=== PATIENT | female | born 1945 | race Caucasian/White ===

== ENCOUNTER → 2016-09-20 | Outpatient (CLI) | payer OTHER ==
[~2016-09-20] MED LIST: ALBU8I INH; ASPI1TAB91 PO; ATOR40TA16 PO; ATOR40TA49 PO; CARV12.5 PO; CARV6.25 PO; DUONI NEB; ECOT81TA2 PO; FLUT1SPR5 EACH NARE; FURO1TAB93 PO; HYDR-3516 PO; IPRASOL NEB; LACT PO; LEVA500T PO; LISI10 PO; LORTA5 PO; MESA1TAB2 PO; METR-1 PO; NEBUMIS6 INH; PRED20 PO; SPIR25 PO; SYMB160A INH; VENTAER INH; Z.0.OXYGENDME FM
[2016-09-20 14:55] LABS: BLOOD GAS BASE EXCESS -1.2 mmol/L (-2-2); BLOOD GAS CARBOXYHEMOGLOBIN 1.2 % (0-4); BLOOD GAS HCO3 23 mmol/L (22-26); BLOOD GAS METHEMOGLOBIN 1.2 % (0-2); BLOOD GAS O2 HGB SATURATION 95 % (90-100); BLOOD GAS OXYGEN CONTENT 17.6 Vol % (12.0-20.0); BLOOD GAS PCO2 38 mmHg (38-42); BLOOD GAS PO2 99 mmHg (61-120); BLOOD GAS TOTAL HGB 13.1 G/DL (12.0-16.0); TEMP CORR TO 98.6
[2016-09-20 14:56] LABS: CRITICAL VALUE NO; DRAW SITE RT RADIAL; FIO2 21 %; NUMBER OF ARTERIAL PUNCTURES 1; STAT NO; ULNAR PULSE PRESENT
--- NOTE | 2016-09-24 11:38 | RSPPFT ---
DATE OF PROCEDURE: 09/20/16 COMMENTS: VOLUMES DYNAMIC: FVC and FEV1 severely reduced. STATIC: Unable to perform. FLOWS: FEV1% moderately reduced. FEF 25-75 severely reduced. DIFFUSION: Unable to perform. FLOW VOLUME LOOP: Pattern of variable intrathoracic airways obstruction. IMPRESSION: Very severe obstructive ventilatory defect with patient unable to perform lung volumes or diffusion. No significant improvement in FEV1 post-bronchodilator.
== END ==
LOC: HRSP 13:41
PROVIDERS: ATTEND Internal Medicine
DX: J44.9 Chronic obstructive pulmonary disease, unspecified (principal)
CPT/HCPCS: 36600; 82805; 94060; 94620

== ENCOUNTER 2016-10-03 15:31 | Inpatient (IN) | payer OTHER, MEDICARE ==
[~2016-10-03] VITALS: Ht 157.5 cm; Wt 65.6 kg
[~2016-10-03 15:31] MED LIST changes: -ASPI1TAB91 PO; -ATOR40TA16 PO; -CARV12.5 PO; -FLUT1SPR5 EACH NARE; -HYDR-3516 PO; -IPRASOL NEB; -LACT PO; -MESA1TAB2 PO; -METR-1 PO; -VENTAER INH
[2016-10-03 15:37] VITALS: BP 192/82; PULSE 83; RESP 24; TEMP 98.3; O2SAT 98
--- NOTE | 2016-10-03 15:51 | PD ---
Physical Exam Time Seen by Provider: 15:48 Narrative 71yo F c/o vomiting last night and today. Gastrography one week ago and mentioned intestinal/ischemic angina. +sweating; unknown fever. Denies diarrhea. Was having abd pain and rated 8/10 at time of pain; no current pain. Patient seen in triage. VS reviewed. Awaiting bed placement. Data Data Last Documented VS Vital Signs Date Time Temp Pulse Resp B/P Pulse Ox O2 Delivery O2 Flow Rate FiO2 10/03/16 15:37 98.3 83 24 192/82 98 Room Air MDM Supervised Visit with YESI: Hodan Gililland Oct 03, 2016 15:51
[2016-10-03 16:58] LABS: BASOPHIL % 0.4 % (0.0-2.0); EOSINOPHIL % 0.2 % (0.0-4.0); HEMO FLAGS DIFF FINAL; LYMPHOCYTE # 1.1 TH/MM3 (1.0-4.8); MEAN CELL VOLUME 81.2 FL (80.0-100.0); MEAN CORPUSCULAR HEMOGLOBIN 27.2 PG (27.0-34.0); MEAN CORPUSCULAR HGB CONC 33.5 % (32.0-36.0); MONO % 8.5 % (0.0-8.0); NEUT % 79.9 % (16.0-70.0); PLATELET COUNT 370 TH/MM3 (150-450); RED CELL DISTRIBUTION WIDTH 13.8 % (11.6-17.2)
[2016-10-03 17:13] LABS: ALT (GPT) 16 U/L (10-53)
[2016-10-03 17:15] LABS: ALKALINE PHOSPHATASE 75 U/L (45-117); TOTAL BILIRUBIN ADULT 0.3 MG/DL (0.2-1.0)
[2016-10-03 17:22] VITALS: O2SAT 96
[2016-10-03] MEDS ORDERED: ONDANSETRON HCL 4 MG/2 ML VIAL IV PUSH ONE (17:30)
[2016-10-03] MEDS ORDERED: SODIUM CHLOR 0.9% 1000 ML INJ 1,000 ML IV ONE (17:30)
[2016-10-03 17:35] LABS: BACTERIA, URINE MANY /hpf; BLOOD, URINE MOD (NEG); COMMENT (UR) CULTURE INDICATED; CULTURE IF INDICATED CULTURE INDICATED; GLUCOSE,URINE NEG (NEG); GRANULAR CAST, URINE 1 /lpf; KETONE, URINE 40 mg/dL (NEG); MUCUS URINE FEW /lpf (OCC); PH, URINE 5.5 (5.0-8.5); SQUAMOUS EPITHELIAL CELL URINE 5 /hpf (0-5); URINE COLOR YELLOW (YELLW/STRAW)
[2016-10-03 17:37] LABS: NITRITE,URINE POS (NEG)
--- NOTE | 2016-10-03 17:44 | PD ---
HPI Chief Complaint: GI Complaint Time Seen by Provider: 17:15 Travel History International Travel<30 days: No Contact w/Intl Traveler<30days: No Traveled to known affect area: No History of Present Illness HPI Patient is a 71-year-old female presents emergency Department with nausea and vomiting which has progressed over the past few days, patient states she's been having emesis full of green bile. She endorses generalized abdominal cramping which is gradually worsening. Patient is a coming by family who states that they wanted to stop and try some food on the way here and the patient was not able to tolerate that either. She is a recent history of having a colonography performed on the ninth of this month. Patient states she was able tolerate food pass gas after the procedure. She is followed by Dr. Holbrook. She does decline any diarrhea nor blood in the stool. PFSH Past Medical History Arthritis: Yes Depression: Yes Cancer: No Cardiovascular Problems: No COPD: Yes Diminished Hearing: No Endocrine: No Genitourinary: No Hypertension: Yes Immune Disorder: No Musculoskeletal: Yes Neurologic: No Psychiatric: Yes Reproductive: No Respiratory: No Immunizations Current: Yes Influenza Vaccination: No ?: Not Menopausal: Yes Past Surgical History Cholecystectomy: Yes Gynecologic Surgery: Yes (hysterectomy) Hysterectomy: Yes Oral Surgery: Yes (tonsilectomy) Tonsillectomy: Yes Other Surgery: Yes Social History Alcohol Use: No Tobacco Use: No (QUIT 2014) Substance Use: No Allergies-Medications (Allergen,Severity, Reaction): Coded Allergies: No Known Allergies (Unverified , 10/03/16) Reported Meds & Prescriptions Reported Meds & Active Scripts Active Reported Flonase Nasal [place] (Fluticasone Nasal [place]) 50 Mcg/Act [place] 2 Spr EACH NARE DAILY PRN Atorvastatin (Atorvastatin Calcium) 40 Mg Tab 40 Mg PO HS Aspirin Adult Low Strength (Aspirin) 81 Mg Tabdr 81 Mg PO DAILY Coreg (Carvedilol) 12.5 Mg Tab 12.5 Mg PO DAILY Duoneb (Ipratropium-Albuterol Neb) 0.5-2.5 Mg/3 Ml Neb 3 Ml NEB QID PRN Ventolin Hfa 18 GM Inh (Albuterol Sulfate) 90 Mcg/Act Aer 2 Puff INH Q6H PRN Symbicort Inh (Budesonide/Formoterol Fumarate) 160-4.5 Mcg/Act Aero 2 Puff INH Q12HR Review of Systems Except as stated in HPI: all other systems reviewed are Neg Physical Exam Narrative GENERAL: Well-developed well-nourished, appears uncomfortable but nontoxic. SKIN: Focused skin assessment warm/dry. HEAD: Atraumatic. Normocephalic. EYES: Pupils equal and round. No scleral icterus. No injection or drainage. ENT: No nasal bleeding or discharge. Mucous membranes pink and moist. NECK: Trachea midline. No JVD. CARDIOVASCULAR: Regular rate and rhythm. No murmur appreciated. RESPIRATORY: No accessory muscle use. Clear to auscultation. Breath sounds equal bilaterally. GASTROINTESTINAL: Abdomen soft, non-tender, nondistended. Dull to percussion. No rebound no percussive tenderness. Bowel sounds hypoactive and high pitched. Hepatic and splenic margins not palpable. MUSCULOSKELETAL: No obvious deformities. No clubbing. No cyanosis. No edema. NEUROLOGICAL: Awake and alert. No obvious cranial nerve deficits. Motor grossly within normal limits. Normal speech. PSYCHIATRIC: Appropriate mood and affect; insight and judgment normal. Data Data Last Documented VS Vital Signs Date Time Temp Pulse Resp B/P Pulse Ox O2 Delivery O2 Flow Rate FiO2 10/03/16 19:49 89 18 111/47 96 Room Air 10/03/16 15:37 98.3 Orders Complete Blood Count With Diff (10/03/16 15:58) Comprehensive Metabolic Panel (10/03/16 15:58) Urinalysis - C+S If Indicated (10/03/16 15:58) Iv Access Insert/Monitor (10/03/16 15:58) Oxygen Administration (10/03/16 15:58) Oximetry (10/03/16 15:58) Lipase (10/03/16 15:58) Abdomen, Kub Only (10/03/16 ) Ondansetron Inj (Zofran Inj) (10/03/16 17:30) Sodium Chlor 0.9% 1000 Ml Inj (Ns 1000 M (10/03/16 17:30) Lactic Acid (10/03/16 17:25) Chest, Single Ap (10/03/16 ) Urine Culture (10/03/16 16:50) Morphine Inj (Morphine Inj) (10/03/16 18:30) Ct Abd/Pel W Iv Contrast(Rout) (10/03/16 ) Iohexol 350 Inj (Omnipaque 350 Inj) (10/03/16 19:28) Piperacil-Tazo 3.375 Gm Premix (Zosyn 3. (10/03/16 20:00) Admit Order (Ed Use Only) (10/03/16 20:19) Labs Laboratory Tests Test 10/03/16 10/03/16 10/03/16 15:52 16:30 16:50 Lactic Acid Level 0.8 mmol/L Sodium Level 134 MEQ/L Potassium Level 3.7 MEQ/L Chloride Level 96 MEQ/L Carbon Dioxide Level 26.3 MEQ/L Anion Gap 12 MEQ/L Blood Urea Nitrogen 17 MG/DL Creatinine 0.79 MG/DL Estimat Glomerular Filtration 72 ML/MIN Rate Random Glucose 169 MG/DL Calcium Level 8.6 MG/DL Total Bilirubin 0.3 MG/DL Aspartate Amino Transf 18 U/L (AST/SGOT) Alanine Aminotransferase 16 U/L (ALT/SGPT) Alkaline Phosphatase 75 U/L Total Protein 8.0 GM/DL Albumin 3.0 GM/DL Lipase 145 U/L White Blood Count 10.0 TH/MM3 Red Blood Count 4.80 MIL/MM3 Hemoglobin 13.1 GM/DL Hematocrit 39.0 % Mean Corpuscular Volume 81.2 FL Mean Corpuscular Hemoglobin 27.2 PG Mean Corpuscular Hemoglobin 33.5 % Concent Red Cell Distribution Width 13.8 % Platelet Count 370 TH/MM3 Mean Platelet Volume 8.5 FL Neutrophils (%) (Auto) 79.9 % Lymphocytes (%) (Auto) 11.0 % Monocytes (%) (Auto) 8.5 % Eosinophils (%) (Auto) 0.2 % Basophils (%) (Auto) 0.4 % Neutrophils # (Auto) 8.0 TH/MM3 Lymphocytes # (Auto) 1.1 TH/MM3 Monocytes # (Auto) 0.8 TH/MM3 Eosinophils # (Auto) 0.0 TH/MM3 Basophils # (Auto) 0.0 TH/MM3 CBC Comment DIFF FINAL Differential Comment Urine Color YELLOW Urine Turbidity HAZY Urine pH 5.5 Urine Specific [place] 1.030 Urine Protein 100 mg/dL Urine Glucose (UA) NEG mg/dL Urine Ketones 40 mg/dL Urine Occult Blood MOD Urine Nitrite POS Urine Bilirubin NEG Urine Urobilinogen LESS THAN 2.0 MG/DL Urine Leukocyte Esterase LARGE Urine RBC LESS THAN 1 /hpf Urine WBC 8 /hpf Urine Squamous Epithelial 5 /hpf Cells Urine Bacteria MANY /hpf Urine Granular Casts 1 /lpf Urine Mucus FEW /lpf Microscopic Urinalysis Comment CULTURE INDICATED MDM Medical Decision Making Medical Screen Exam Complete: Yes Emergency Medical Condition: Yes Interpretation(s) EKG shows sinus rhythm normal axis normal R-wave progression. Minimal ST depression in V6 and aVF nonspecific finding. No elevation. This is borderline EKG. Differential Diagnosis Obstruction, free air in the abdomen, abdominal perforation, Narrative Course Patient 71-year-old female with a history of recent colonography presents emergency department for evaluation of abdominal pain and intractable nausea and vomiting with bilious emesis. Basic laboratory evaluation was ordered, chest x-ray upright shows no evidence of free air, KUB shows no evidence of obstruction. CT scan is pending. Patient was discussed with Dr. Villalba to follow-up the additional labs and the CAT scan disposition the patient properly. Alexi Briceno MD Oct 03, 2016 17:44
[2016-10-03 17:48] LABS: ANION GAP 12 MEQ/L (5-15); AST (GOT) 18 U/L (15-37); BICARBONATE 26.3 MEQ/L (21.0-32.0); BLOOD UREA NITROGEN 17 MG/DL (7-18); CHLORIDE 96 MEQ/L (98-107); GLOMERULAR FILTRATION RATE 72 ML/MIN (>89); POTASSIUM 3.7 MEQ/L (3.5-5.1); SODIUM (NA) 134 MEQ/L (136-145)
--- NOTE | 2016-10-03 18:15 | RADRPT ---
EXAM DATE/TIME: 10/03/2016 17:41 [facility] COMPARISON: CT ABDOMEN & PELVIS W CONTRAST, April 02, 2015, 3:57. CHEST SINGLE AP, April 09, 2015, 5:37. INDICATIONS : Chest and abdominal pain . MEDICAL HISTORY : Arthritis. SURGICAL HISTORY : Tonsillectomy. Hysterectomy. Cholecystectomy. ENCOUNTER: Initial ACUITY: 4 - 6 days PAIN SCORE: 8/10 LOCATION: mid upper abdomen FINDINGS: Mild atelectasis seen in the right lung base. Lungs otherwise appear clear. No large effusion demonst rated. No pneumothorax. No evidence of free air in the upper abdomen. Right hemidiaphragm is focally eventrated, appears yarn examiner skeins sneha. CONCLUSION: Trace right base atelectasis. No other evidence of acute cardiopulmonary disease. No free air seen in the upper abdomen. Harris Evans MD on October 03, 2016 at 18:11 Board Certified Radiologist. This report was verified electronically.
--- NOTE | 2016-10-03 18:16 | RADRPT ---
EXAM DATE/TIME: 10/03/2016 17:47 [facility] COMPARISON: No previous studies available for comparison. INDICATIONS : Upper abdominal and chest pain. MEDICAL HISTORY : Arthritis. SURGICAL HISTORY : Tonsillectomy. Cholecystectomy. Hysterectomy. ENCOUNTER: Initial ACUITY: 4 - 6 days PAIN SCORE: 8/10 LOCATION: upper abdomen FINDINGS: Supine view of the abdomen was performed. The abdominal bowel gas pattern is normal. No abnormal ma sses, calcifications, or organomegaly is seen. The osseous structures are unremarkable. CONCLUSION: Nonspecific and nonobstructive bowel gas pattern. No evidence of free air. Harris Evans MD on October 03, 2016 at 18:14 Board Certified Radiologist. This report was verified electronically.
[2016-10-03] MEDS ORDERED: MORPHINE SULFATE 8 MG/ML INJ IV PUSH ONE (18:30)
[2016-10-03] MEDS ORDERED: SYMB160A INH (18:35)
[2016-10-03] MEDS ORDERED: FLUT1SPR5 EACH NARE (18:35)
[2016-10-03] MEDS ORDERED: VENTAER INH (18:35)
[2016-10-03] MEDS ORDERED: ASPI1TAB91 PO (18:35)
[2016-10-03] MEDS ORDERED: CARV12.5 PO (18:35)
[2016-10-03] MEDS ORDERED: ATOR40TA16 PO (18:35)
[2016-10-03] MEDS ORDERED: IPRASOL NEB (18:35)
[2016-10-03] MEDS ORDERED: IOHEXOL 350 MG/ML 10 ML VIAL (for RAD DIAG) IV ONE (19:28)
--- NOTE | 2016-10-03 19:41 | RADRPT ---
EXAM DATE/TIME: 10/03/2016 19:21 [facility] COMPARISON: CT ABDOMEN & PELVIS W CONTRAST, April 09, 2015, 0:49. INDICATIONS : Lower abdominal pains and vomiting. IV CONTRAST: 96 cc Omnipaque 350 (iohexol) IV ORAL CONTRAST: No oral contrast ingested. RADIATION DOSE: 9.31 CTDIvol (mGy) MEDICAL HISTORY : Hypertension. SURGICAL HISTORY : Hysterectomy. Cholecystectomy. ENCOUNTER: Initial ACUITY: 1 week PAIN SCALE: 6/10 LOCATION: Bilateral lower quadrant TECHNIQUE: Volumetric scanning of the abdomen and pelvis was performed. Using automated exposure control and ad justment of the mA and/or kV according to patient size, radiation dose was kept as low as reasonably achievable to obtain optimal diagnostic quality images. FINDINGS: LOWER LUNGS: The visualized lower lungs are clear. LIVER: 16mm hypodensity inferiorly of the right hepatic lobe is not significantly changed. No acute abnormal ity seen of the liver. No biliary distention. Patient has had previous cholecystectomy. SPLEEN: 13 mm posterior cystic lesion unchanged. PANCREAS: Within normal limits. KIDNEYS: Normal in size and shape. There is no mass, stone or hydronephrosis. ADRENAL GLANDS: Within normal limits. VASCULAR: There is aortoiliac atherosclerosis. No aneurysm. BOWEL/MESENTERY: There is mild to moderate colonic wall thickening. There is sparing of the cecum but otherwise this a ppears fairly generalized. No obstruction, perforation or abscess demonstrated. The appendix is well- visualized, normal. No free fluid is seen. ABDOMINAL WALL: Within normal limits. RETROPERITONEUM: There is no lymphadenopathy. BLADDER: No wall thickening or mass. REPRODUCTIVE: Previous hysterectomy. INGUINAL: There is no lymphadenopathy or hernia. MUSCULOSKELETAL: No acute bony abnormality demonstrated. CONCLUSION: Long segment/nearly diffuse colitis, nonspecific but most likely infectious or inflammatory. No absce ss, perforation, obstruction or other acute complication demonstrated. Harris Evans MD on October 03, 2016 at 19:35 Board Certified Radiologist. This report was verified electronically.
[2016-10-03 19:49] VITALS: BP 111/47; PULSE 89; RESP 18; O2SAT 96
[2016-10-03] MEDS ORDERED: PIPERACIL-TAZO 3.375 GM PREMIX 50 ML IV ONE (20:00)
[2016-10-03] MEDS ORDERED: NALOXONE HCL 0.4 MG/ML AMP IV PRN (20:30)
[2016-10-03] MEDS ORDERED: SODIUM CHLORIDE 0.9% FLUSH 10 ML FLUSH IV FLUSH PRN (20:30)
--- NOTE | 2016-10-03 20:31 | PD ---
Data Data Last Documented VS Vital Signs Date Time Temp Pulse Resp B/P Pulse Ox O2 Delivery O2 Flow Rate FiO2 10/03/16 19:49 89 18 111/47 96 Room Air 10/03/16 15:37 98.3 Orders Complete Blood Count With Diff (10/03/16 15:58) Comprehensive Metabolic Panel (10/03/16 15:58) Urinalysis - C+S If Indicated (10/03/16 15:58) Iv Access Insert/Monitor (10/03/16 15:58) Oxygen Administration (10/03/16 15:58) Oximetry (10/03/16 15:58) Lipase (10/03/16 15:58) Abdomen, Kub Only (10/03/16 ) Ondansetron Inj (Zofran Inj) (10/03/16 17:30) Sodium Chlor 0.9% 1000 Ml Inj (Ns 1000 M (10/03/16 17:30) Lactic Acid (10/03/16 17:25) Chest, Single Ap (10/03/16 ) Urine Culture (10/03/16 16:50) Morphine Inj (Morphine Inj) (10/03/16 18:30) Ct Abd/Pel W Iv Contrast(Rout) (10/03/16 ) Iohexol 350 Inj (Omnipaque 350 Inj) (10/03/16 19:28) Piperacil-Tazo 3.375 Gm Premix (Zosyn 3. (10/03/16 20:00) Admit Order (Ed Use Only) (10/03/16 20:19) Labs Laboratory Tests Test 10/03/16 10/03/16 10/03/16 15:52 16:30 16:50 Lactic Acid Level 0.8 mmol/L White Blood Count 10.0 TH/MM3 Red Blood Count 4.80 MIL/MM3 Hemoglobin 13.1 GM/DL Hematocrit 39.0 % Mean Corpuscular Volume 81.2 FL Mean Corpuscular Hemoglobin 27.2 PG Mean Corpuscular Hemoglobin 33.5 % Concent Red Cell Distribution Width 13.8 % Platelet Count 370 TH/MM3 Mean Platelet Volume 8.5 FL Neutrophils (%) (Auto) 79.9 % Lymphocytes (%) (Auto) 11.0 % Monocytes (%) (Auto) 8.5 % Eosinophils (%) (Auto) 0.2 % Basophils (%) (Auto) 0.4 % Neutrophils # (Auto) 8.0 TH/MM3 Lymphocytes # (Auto) 1.1 TH/MM3 Monocytes # (Auto) 0.8 TH/MM3 Eosinophils # (Auto) 0.0 TH/MM3 Basophils # (Auto) 0.0 TH/MM3 CBC Comment DIFF FINAL Differential Comment Sodium Level 134 MEQ/L Potassium Level 3.7 MEQ/L Chloride Level 96 MEQ/L Carbon Dioxide Level 26.3 MEQ/L Anion Gap 12 MEQ/L Blood Urea Nitrogen 17 MG/DL Creatinine 0.79 MG/DL Estimat Glomerular Filtration 72 ML/MIN Rate Random Glucose 169 MG/DL Calcium Level 8.6 MG/DL Total Bilirubin 0.3 MG/DL Aspartate Amino Transf 18 U/L (AST/SGOT) Alanine Aminotransferase 16 U/L (ALT/SGPT) Alkaline Phosphatase 75 U/L Total Protein 8.0 GM/DL Albumin 3.0 GM/DL Lipase 145 U/L Urine Color YELLOW Urine Turbidity HAZY Urine pH 5.5 Urine Specific [place] 1.030 Urine Protein 100 mg/dL Urine Glucose (UA) NEG mg/dL Urine Ketones 40 mg/dL Urine Occult Blood MOD Urine Nitrite POS Urine Bilirubin NEG Urine Urobilinogen LESS THAN 2.0 MG/DL Urine Leukocyte Esterase LARGE Urine RBC LESS THAN 1 /hpf Urine WBC 8 /hpf Urine Squamous Epithelial 5 /hpf Cells Urine Bacteria MANY /hpf Urine Granular Casts 1 /lpf Urine Mucus FEW /lpf Microscopic Urinalysis Comment CULTURE INDICATED MDM Medical Record Reviewed: Yes Supervised Visit with YESI: No Narrative Course CBC & BMP Diagram 10/03/16 16:30 [place] 0.8 LFTs normal Lipase 145 UA: UTI present Last 24 hours Impressions Chest X-Ray 10/03/16 0000 Signed Impressions: Service Date/Time: September 17:41 - CONCLUSION: Trace right base atelectasis. No other evidence of acute cardiopulmonary disease. No free air seen in the upper abdomen. Harris Evans MD Abdomen/Pelvis CT 10/03/16 0000 Signed Impressions: Service Date/Time: September 19:21 - CONCLUSION: Long segment/nearly diffuse colitis, nonspecific but most likely infectious or inflammatory. No abscess, perforation, obstruction or other acute complication demonstrated. Harris Evans MD Abdomen X-Ray 10/03/16 0000 Signed Impressions: Service Date/Time: September 17:47 - CONCLUSION: Nonspecific and nonobstructive bowel gas pattern. No evidence of free air. Harris Evans MD Please refer to Dr Briceno's note. Zosyn started. Pain controlled at approx 815PM. CT Colonography (09/27/16): C-RADS CLASSIFICATION C0: There is inadequate distention and evaluation of the sigmoid colon, transverse, and right colon. E- RADS CLASSIFICATION E2: no acute extracolonic abnormality is identified. Nonacute findings include small hiatal hernia, severe atherosclerotic disease, emphysema. d/w Dr Proctor for GI who notes hx of large GI inflammatory mass on prior colonoscopy; consult for colorectal surgery added. No obstruction on CT. Diagnosis Primary Impression: Colitis Additional Impression: Nausea vomiting and diarrhea Admitting Information Admitting Physician Requests: Admit Dayday Villalba MD Oct 03, 2016 20:31
--- NOTE | 2016-10-03 21:42 | HHI.HP ---
HPI Service [facility] Primary Care Physician Tobin Proctor MD Admission Diagnosis Colitis, N/V/D Diagnoses: (1) Colitis (2) Nausea vomiting and diarrhea Chief Complaint: abdominal pain with nausea and vomiting Travel History International Travel<30 Days: No Contact w/Intl Traveler <30 Da: No Traveled to Known Affected Are: No History of Present Illness Written by Isabel Hendrickson, acting as scribe for Dr. Valencia on 10/03/16 at 21:42. Ms. Beard is complaining of progressively worsening left upper quadrant abdominal pain. Last Friday had CT colonography at [facility] and has been having extreme pain since then. Symptoms accompanied by nausea and vomiting with green emesis and diarrhea (has chronic diarrhea for months). Stool color is not black or red. Fevers for 2 - 3 days - not measured. Also had syncopal episodes over the past week - would feel near-syncopal and attempt to hold onto something but would then pass out - occurred 2 or 3 times. Has emphysema with chronic shortness of breath. Colonoscopy with suspicious polyps. Has a colon mass requiring biopsy. Denies hematuria or dysuria, . 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 . Past Surgical History Colonoscopy with polypectomy Tonsillectomy Hysterectomy Cholecystectomy . Reported Medications Reported Meds & Active Scripts Active Reported Flonase Nasal [place] (Fluticasone Nasal [place]) 50 Mcg/Act [place] 2 Spr EACH NARE DAILY PRN Atorvastatin (Atorvastatin Calcium) 40 Mg Tab 40 Mg PO HS Aspirin Adult Low Strength (Aspirin) 81 Mg Tabdr 81 Mg PO DAILY Coreg (Carvedilol) 12.5 Mg Tab 12.5 Mg PO DAILY Duoneb (Ipratropium-Albuterol Neb) 0.5-2.5 Mg/3 Ml Neb 3 Ml NEB QID PRN Ventolin Hfa 18 GM Inh (Albuterol Sulfate) 90 Mcg/Act Aer 2 Puff INH Q6H PRN Symbicort Inh (Budesonide/Formoterol Fumarate) 160-4.5 Mcg/Act Aero 2 Puff INH Q12HR Allergies: Coded Allergies: No Known Allergies (Unverified , 10/03/16) Active Ordered Medications Current Medications Ondansetron HCl 4 mg 4 mg ONCE ONCE IV PUSH Last administered on 10/03/16 18: 13; Start 10/03/16 at 17:30; Stop 10/03/16 at 18:03; Status DC Sodium Chloride (NS 1000 ml Inj) 1,000 ml @ 999 mls/hr BOLUS ONCE IV Last administered on 10/03/16 18:14; Start 10/03/16 at 17:30; Stop 10/03/16 at 18:30 ; Status DC Morphine Sulfate (Morphine Inj) 5 mg ONCE ONCE IV PUSH Last administered on 19:43; Start 10/03/16 at 18:30; Stop 10/03/16 at 18:56; Status DC Iohexol 96 ml 96 ml STK-MED ONCE IV ; Start 10/03/16 at 19:28; Stop 10/03/16 at 19:29; Status DC Piperacillin Sod/ Tazobactam Sod 50 ml @ 100 mls/hr ONCE ONCE IV ; Start 10/03 at 20:00; Stop 10/03/16 at 20:29; Status DC Sodium Chloride (NS 1000 ml Inj) 1,000 ml @ 100 mls/hr Q10H IV ; Start at 20:20 Sodium Chloride (NS Flush) 2 ml UNSCH PRN IV FLUSH FLUSH AFTER USING IV ACCESS ; Start 10/03/16 at 20:30 Sodium Chloride (NS Flush) 2 ml BID IV FLUSH ; Start 10/03/16 at 21:00 Ondansetron HCl (Zofran Inj) 4 mg Q6H PRN IVP NAUSEA OR VOMITING; Start at 20:30 Naloxone HCl 0.4 mg 0.4 mg UNSCH PRN IV SEE LABEL COMMENTS; Start 10/03/16 at 20:30 Piperacillin Sod/ Tazobactam Sod (Zosyn 4.5 Gm Premix) 100 ml @ 200 mls/hr Q6H IV ; Start 10/04/16 at 03:00 Morphine Sulfate (Morphine Inj) 2 mg Q3H PRN IV PUSH pain >5; Start 10/03/16 at 20:30 . Family History Mother with diabetes mellitus Son with diabetes mellitus . Social History Tobacco: quit smoking 2 years ago Alcohol: denies Illicit Drugs: denies . Physical Exam Vital Signs Vital Signs Date Time Temp Pulse Resp B/P Pulse Ox O2 Delivery O2 Flow Rate FiO2 10/03/16 19:49 89 18 111/47 96 Room Air 10/03/16 17:22 96 Room Air 10/03/16 17:22 96 Room Air 10/03/16 15:37 98.3 83 24 192/82 98 Room Air Physical Exam GENERAL: This is a pleasant older female patient, in no apparent distress. SKIN: No rashes, ecchymoses or lesions. Cool and dry. HEAD: Atraumatic. Normocephalic. EYES: No scleral icterus. No injection or drainage. ENT: Nose without bleeding, purulent drainage. NECK: Trachea midline. No JVD or lymphadenopathy. CARDIOVASCULAR: Regular rate and rhythm without murmurs, gallops, or rubs. RESPIRATORY: Clear to auscultation. Breath sounds equal bilaterally. No wheezes , rales, or rhonchi. GASTROINTESTINAL: Abdomen soft, slightlty tender, nondistended. No guarding. MUSCULOSKELETAL: Extremities without clubbing, cyanosis, or edema. No calf tenderness. NEUROLOGICAL: Awake and alert. Motor and sensory grossly within normal limits. Normal speech. . Laboratory Laboratory Tests Test 10/03/16 10/03/16 10/03/16 15:52 16:30 16:50 Lactic Acid Level 0.8 White Blood Count 10.0 Red Blood Count 4.80 Hemoglobin 13.1 Hematocrit 39.0 Mean Corpuscular Volume 81.2 Mean Corpuscular Hemoglobin 27.2 Mean Corpuscular Hemoglobin 33.5 Concent Red Cell Distribution Width 13.8 Platelet Count 370 Mean Platelet Volume 8.5 Neutrophils (%) (Auto) 79.9 Lymphocytes (%) (Auto) 11.0 Monocytes (%) (Auto) 8.5 Eosinophils (%) (Auto) 0.2 Basophils (%) (Auto) 0.4 Neutrophils # (Auto) 8.0 Lymphocytes # (Auto) 1.1 Monocytes # (Auto) 0.8 Eosinophils # (Auto) 0.0 Basophils # (Auto) 0.0 CBC Comment DIFF FINAL Differential Comment Sodium Level 134 Potassium Level 3.7 Chloride Level 96 Carbon Dioxide Level 26.3 Anion Gap 12 Blood Urea Nitrogen 17 Creatinine 0.79 Estimat Glomerular Filtration 72 Rate Random Glucose 169 Calcium Level 8.6 Total Bilirubin 0.3 Aspartate Amino Transf 18 (AST/SGOT) Alanine Aminotransferase 16 (ALT/SGPT) Alkaline Phosphatase 75 Total Protein 8.0 Albumin 3.0 Lipase 145 Urine Color YELLOW Urine Turbidity HAZY Urine pH 5.5 Urine Specific [place] 1.030 Urine Protein 100 Urine Glucose (UA) NEG Urine Ketones 40 Urine Occult Blood MOD Urine Nitrite POS Urine Bilirubin NEG Urine Urobilinogen LESS THAN 2.0 Urine Leukocyte Esterase LARGE Urine RBC LESS THAN 1 Urine WBC 8 Urine Squamous Epithelial 5 Cells Urine Bacteria MANY Urine Granular Casts 1 Urine Mucus FEW Microscopic Urinalysis Comment CULTURE INDICATED Date/Time Procedure Status Source Growth 10/03/16 16:50 Urine Culture Received Urine Clean Catch Pending Result Diagram: 10/03/16 1630 10/03/16 1630 Imaging Last Impressions Chest X-Ray 10/03/16 0000 Signed Impressions: Service Date/Time: September 17:41 - CONCLUSION: Trace right base atelectasis. No other evidence of acute cardiopulmonary disease. No free air seen in the upper abdomen. Harris Evans MD Abdomen/Pelvis CT 10/03/16 0000 Signed Impressions: Service Date/Time: September 19:21 - CONCLUSION: Long segment/nearly diffuse colitis, nonspecific but most likely infectious or inflammatory. No abscess, perforation, obstruction or other acute complication demonstrated. Harris Evans MD Abdomen X-Ray 10/03/16 0000 Signed Impressions: Service Date/Time: September 17:47 - CONCLUSION: Nonspecific and nonobstructive bowel gas pattern. No evidence of free air. Harris Evans MD . Assessment and Plan Problem List: (1) Colitis ICD Code: K52.9 Status: Acute (2) Nausea vomiting and diarrhea ICD Code: R11.2 Status: Acute Assessment and Plan Colitis with N/V/D Colorectal Mass - inflammatory vs. neoplasm - Follows with Dr. Proctor as an outpatient, consulted Dr. Proctor, GI - assistance appreciated - Consult colorectal surgery - Zosyn 4.5 GM IV q6h - Morphine 2 mg IV q3h PRN pain - Zofran 4 mg IV q6h PRN nausea/vomiting DVT prophylaxis - SCDs/TEDs Discussed Condition With ER physician, patient, patient's daughter in law (a doctor of nursing practice at [facility]) . Physician Certification 2 Midnight Certification Type: Admission for Inpatient Services Order for Inpatient Services The services are ordered in accordance with Medicare regulations or non- Medicare payer requirements, as applicable. In the case of services not specified as inpatient-only, they are appropriately provided as inpatient services in accordance with the 2-midnight benchmark. Estimated LOS (days): 3 days is the estimated time the patient will need to remain in the hospital, assuming treatment plan goals are met and no additional complications. Post-Hospital Plan: Home Isabel Hendrickson Oct 03, 2016 21:42
[2016-10-03] MEDS: SODIUM CHLOR 0.9% 1000 ML INJ 1,000 ML IV SCH (22:08)
[2016-10-03] MEDS: MORPHINE SULFATE 4 MG/ML INJ IV PUSH PRN (22:08)
[2016-10-03] MEDS: SODIUM CHLORIDE 0.9% FLUSH 10 ML FLUSH IV FLUSH SCH (22:08)
[2016-10-03 22:41] VITALS: BP 107/56; PULSE 83; RESP 18; O2SAT 97
[2016-10-04] VITALS (8 sets, daily range): BP systolic 98–140; BP diastolic 51–69; PULSE 68–83; RESP 16–20; TEMP 96.4–98.9; O2SAT 95–97
[2016-10-04] MEDS: PIPERACIL-TAZO 4.5 GM PREMIX 100 ML IV SCH ×4 (03:21→20:10)
[2016-10-04] MEDS: SODIUM CHLOR 0.9% 1000 ML INJ 1,000 ML IV SCH (05:50)
[2016-10-04] MEDS ORDERED: ACETAMINOPHEN 325 MG TAB PO PRN ×2 (08:15)
[2016-10-04] MEDS: BUDESONIDE-FORMOTEROL 160/4.5 MCG INHALER INH SCH ×2 (09:28→20:10)
[2016-10-04] MEDS: NS + KCL 20 MEQ INJ 1,000 ML IV SCH ×2 (09:28→20:11)
[2016-10-04] MEDS: CARVEDILOL 12.5 MG TAB PO SCH (09:29)
[2016-10-04] MEDS: SODIUM CHLORIDE 0.9% FLUSH 10 ML FLUSH IV FLUSH SCH ×2 (09:29→20:11)
[2016-10-04] MEDS: LACTOBACILLUS ACIDOPHILUS TAB PO SCH ×3 (09:29→16:28)
[2016-10-04 10:11] LABS: AUTOMATED NEUTROPHIL # 6.3 TH/MM3 (1.8-7.7); BASOPHIL % 0.4 % (0.0-2.0); EOSINOPHIL # 0.2 TH/MM3 (0-0.4); EOSINOPHIL % 2.5 % (0.0-4.0); HEMATOCRIT 33.4 % (35.0-46.0); HEMO FLAGS DIFF FINAL; LYMPH % 12.1 % (9.0-44.0); LYMPHOCYTE # 1.1 TH/MM3 (1.0-4.8); MEAN CELL VOLUME 81.9 FL (80.0-100.0); MEAN CORPUSCULAR HEMOGLOBIN 26.7 PG (27.0-34.0); MEAN CORPUSCULAR HGB CONC 32.7 % (32.0-36.0); MONO % 15.2 % (0.0-8.0); NEUT % 69.8 % (16.0-70.0); PLATELET COUNT 315 TH/MM3 (150-450); RED BLOOD COUNT 4.09 MIL/MM3 (4.00-5.30); RED CELL DISTRIBUTION WIDTH 13.6 % (11.6-17.2)
--- NOTE | 2016-10-04 10:20 | PD.CONS ---
GI Consult GI Consult SEE FORMAL GI CONSULT ALSO ([id number]) ASSESSMENT/PLAN: 1. Abnormal CT scan 2. Hx of an inflammatory mass in the sigmoid--a gastroscope would not pass this area 3. N/V/Diarrhea PLAN: 1. bowel rest 2. stool path 3. Colorectal surgery eval It was a pleasure seeing Katie Beard . Thank you for this consult. Entered by: Tobin Vargas MD Oct 04, 2016 10:20
[2016-10-04 10:46] LABS: ALKALINE PHOSPHATASE 58 U/L (45-117); ALT (GPT) 13 U/L (10-53); ANION GAP 11 MEQ/L (5-15); AST (GOT) 12 U/L (15-37); BICARBONATE 24.6 MEQ/L (21.0-32.0); BLOOD UREA NITROGEN 12 MG/DL (7-18); CHLORIDE 101 MEQ/L (98-107); GLOMERULAR FILTRATION RATE 79 ML/MIN (>89); SODIUM (NA) 137 MEQ/L (136-145); TOTAL BILIRUBIN ADULT 0.3 MG/DL (0.2-1.0)
--- NOTE | 2016-10-04 11:07 | MB ---
cc: DEBRA LOVELL M.D. DATE OF CONSULTATION 10/04/2016 DATE OF 1945 REASON FOR CONSULTATION I was asked to see this patient as the request of Dr. Dayday Shea for evaluation of abdominal pain, abnormal CT scan and possible colitis. HISTORY The harrison is a pleasant 71-year white female who I saw in the office at the on the office and end of June. She presented for rectal bleeding, occasional dark stools, gastroesophageal reflux disease and a central abdominal pain. I performed an upper endoscopy and a sub-total colonoscopy on her on July 24, 2016. The upper endoscopy showed a 3 cm hiatal hernia and femoral gastritis. Biopsies of the gastritis were benign. The exam was unremarkable. I attempted a colonoscopy from below and both the colonoscope as well as a gastroscope from below would not pass the midsigmoid area. Here there were thickened folds/possible inflammatory mass. She also had multiple polyps in the distal sigmoid and rectosigmoid area which were biopsied and removed found to be hyperplastic in nature. Biopsies of this biopsied mass were not diagnostic - it just showed an inflammatory pseudopolyp, but there is no obvious malignancy noted. We attempted to contact the patient to get a CT colonography and this was done on September 27 and it was a suboptimal exam that could not completely adequately distend the colon, but the exam was significant for hiatal hernia and severe atherosclerosis of the aorta. The patient's family called the office that she was having severe pain and we were worried about intestinal angina and ischemic bowel and we wanted to come to the emergency room and finally the patient presented to the emergency room. It turns out she has been having some of these symptoms since her colonoscopy - she has bilious vomiting and mid abdominal crampy abdominal pain. She also has some loose to watery bowel movements she states. She denies any travel history of taking any unusual food or well water intake. No antibiotic usage. At this time, her nausea and vomiting are better. Loose stools are still present, but no diarrhea. She still has some abdominal pain, but all this is controlled. PAST HISTORY Significant for: 1. Hypertension 2. CHF 3. COPD 4. Emphysema 5. Rectal bleeding 6. Gastroesophageal reflux disease 7. Hiatal hernia 8. Central abdominal pain 9. Hyperplastic colon 10. 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 Loss of appetite PAST SURGICAL HISTORY 1. Hysterectomy 2. Tonsillectomy 3. Cholecystectomy FAMILY HISTORY Noncontributory for this admission. ALLERGIES No known drug allergies. MEDICATIONS Medications are: 1. Flonase 1. Atorvastatin 2. Aspirin 3. Coreg 4. DuoNeb/Ventolin 5. Symbicort inhalers MEDICATIONS As an inpatient include: 1. Symbicort 2. Coreg 3. Lactinex 4. [place] 5. Piperacillin 6. Zofran 7. Narcan 8. Morphine REVIEW OF SYSTEMS No fever or chills, intermittent weight loss. CARDIOPULMONARY: No chest pain, palpitations or shortness of breath. GASTROINTESTINAL: Please see above. Otherwise an unremarkable ten-point review of systems. PHYSICAL EXAMINATION Blood pressure is 117/57, pulse of 81, respiratory rate of 18, temperature 98.9. GENERAL: She is a well-developed, well-nourished white female resting comfortably at this time. Appears to be in no acute GI distress. HEAD, EYES, EARS, NOSE, AND THROAT: Her pupils are equal, round and reactive to light. No obvious scleral icterus. Oropharynx, had dental caries. No tongue deviation, Candidal lesions. Hearing is intact. NECK: Supple. No thyromegaly or lymphadenopathy. LUNGS: His lungs are clear to auscultation and percussion. HEART: Regular rate and rhythm. No gross murmurs are heard. ABDOMEN: Soft. Mild tenderness noted in the mid abdomen, but no rebound tenderness, organomegaly or masses. Bowel sounds positive in the upper quadrant. RECTAL: Exam is not done. EXTREMITIES: Had no clubbing, cyanosis or edema. NEUROLOGIC: Cranial nerves are grossly intact. No gross sensory or motor deficits. DATA BASE See above HPI in regards to upper endoscopy and colonoscopy and pathology. Laboratories revealed a white blood cell count of 10 thousand, hemoglobin 13.1, hematocrit 39, MCV of 81.2, platelet count of 370,000. This morning with hydration hemoglobin down to 10.9 with a white blood count of 9000 - there has been no bleeding. A BUN is 17, creatinine 0.79, blood sugar 169, SGOT was 18, SGPT 16, alk phos 75, total bilirubin of 0.3 - LFT's are normal. Lactic acid is 0.8, potassium 3.7, sodium 134. A plane abdominal x-ray was unremarkable (KUB) A CT scan of the abdomen and pelvis was done with contrast and revealed a long segment newly diffuse colitis nonspecific but most likely infections or inflammatory. No abscess, perforation, obstruction or other acute complication. The cecum appears to be spared. There is aortoiliac atherosclerosis, but no aneurysm. IMPRESSIONS 1. Abnormal CT scan - with thickening of essentially the entire colon. Unfortunately, we could not evaluate her colon completely - the scope could not pass the midsigmoid (see below for details). This may related to infectious etiology, inflammatory bowel disease, however, she does have severe atherosclerosis and may also worry about ischemia. If she develops severe atherosclerosis of the aorta, now I Worry about ischemia. 2. Inflammatory mass in the sigmoid - The gastroscope would not pass this area, therefore a colonoscopy was not complete. Biopsies revealed an inflammatory pseudopolyps. This is seen in IBD, but there is no obvious IBD seen on the limited exam I did. Whether this is something extraluminal is unclear. Unfortunately a CT colonography suboptimal. 3. Nausea, vomiting, diarrhea - unclear etiology. She seemed to be a little improved today, cannot rule out any C. Diff. RECOMMENDATIONS 1. Bowel rest 2. Stool pathology includes C. diff 3. I have discussed this patient with Dr. Guillen in the colorectal service. He will see the patient also. 4. Further recommendations depend on above. MD JOSEPH Pride/KIN /10:27 AM /10:43 AM CHAPARRITA
--- NOTE | 2016-10-04 11:49 | HHI.PR ---
Subjective Remarks Follow-up colitis. Complains of left lower quadrant pain causing nausea. Still having loose stools. Discussed with RN, monitor for overload Objective Vitals Vital Signs Date Time Temp Pulse Resp B/P Pulse Ox O2 Delivery O2 Flow Rate FiO2 10/04/16 08:00 98.9 81 18 117/57 97 140/63 139/62 10/04/16 04:08 97.0 79 20 121/61 97 10/04/16 01:02 96.4 83 20 116/69 95 10/03/16 22:41 83 18 107/56 97 Room Air 10/03/16 19:49 89 18 111/47 96 Room Air 10/03/16 17:22 96 Room Air 10/03/16 17:22 96 Room Air 10/03/16 15:37 98.3 83 24 192/82 98 Room Air Result Diagram: 10/04/16 0947 10/04/16 0947 Imaging Last Impressions Chest X-Ray 10/03/16 0000 Signed Impressions: Service Date/Time: September 17:41 - CONCLUSION: Trace right base atelectasis. No other evidence of acute cardiopulmonary disease. No free air seen in the upper abdomen. Harris Evans MD Abdomen/Pelvis CT 10/03/16 0000 Signed Impressions: Service Date/Time: September 19:21 - CONCLUSION: Long segment/nearly diffuse colitis, nonspecific but most likely infectious or inflammatory. No abscess, perforation, obstruction or other acute complication demonstrated. Harris Evans MD Abdomen X-Ray 10/03/16 0000 Signed Impressions: Service Date/Time: September 17:47 - CONCLUSION: Nonspecific and nonobstructive bowel gas pattern. No evidence of free air. Harris Evans MD Objective Remarks GENERAL: Well-developed, well-nourished in mild distress due to pain SKIN: Warm and dry. HEAD: Atraumatic. Normocephalic. EYES: Pupils equal and round. No scleral icterus. No injection or drainage. ENT: No nasal bleeding or discharge. Mucous membranes pink and moist. NECK: Trachea midline. No JVD. CARDIOVASCULAR: Regular rate and rhythm. RESPIRATORY: No accessory muscle use. Clear to auscultation. Breath sounds equal bilaterally. GASTROINTESTINAL: Abdomen soft, tender lower quadrants. MUSCULOSKELETAL: Extremities without clubbing, cyanosis, or edema. No obvious deformities. NEUROLOGICAL: Awake and alert. No obvious cranial nerve deficits. Motor grossly within normal limits. Five out of 5 muscle strength in the arms and legs. Normal speech. PSYCHIATRIC: Appropriate mood and affect; insight and judgment normal. Procedures none A/P Problem List: (1) Colitis ICD Code: K52.9 Status: Acute (2) Nausea vomiting and diarrhea ICD Code: R11.2 Status: Acute Assessment and Plan Colitis with N/V/D Hx of an inflammatory mass in the sigmoid--a gastroscope would not pass this area. Suboptimal CT colonography - Follows with Dr. Proctor as an outpatient, consulted Dr. Proctor, GI - assistance appreciated - Consulted colorectal surgery - Zosyn 4.5 GM IV q6h. Add Flagyl - Morphine 2 mg IV q3h PRN pain - Zofran 4 mg IV q6h PRN nausea/vomiting - Stool studies. Add Lactinex Syncope likely secondary to dehydration. She is not orthostatic. EKG sinus rhythm. Compared to previous EKG T inversions resolved. Continue telemetry monitoring. 4 precautions Hypokalemia secondary to above. Check magnesium level. Replace with 50 mEq by mouth now then 30 mg twice daily. Repeat BMP and magnesium in the morning. Chronic medical conditions of congestive heart failure and hypertension. Monitor for fluid overload DVT prophylaxis - SCDs/TEDs. Hold pharmacological prophylaxis pending colorectal surgery evaluation . Discharge Planning Not ready for discharge Jeremy Aldana MD Oct 04, 2016 11:49
[2016-10-04] MEDS ORDERED: POTASSIUM CHLORIDE 20 MEQ CONTROLLED RELEASE TAB PO ONE (12:00)
[2016-10-04] MEDS: ACETAMINOPHEN/HYDROcodone 325 MG/5 MG TAB PO PRN ×2 (12:20→16:27)
[2016-10-04] MEDS: POTASSIUM CHLORIDE 10 MEQ CONTROLLED RELEASE TAB PO SCH ×2 (12:21→20:11)
[2016-10-04] MEDS: metroNIDAZOLE 500 MG INJ 100 ML IV SCH ×3 (12:24→23:02)
[2016-10-04 12:47] LABS: MAGNESIUM 1.9 MG/DL (1.5-2.5)
[2016-10-04] MEDS: RESP: ALBUTEROL 2.5 MG/IPRATROPIUM 0.5 MG NEB (PRN) NEB (12:57)
[2016-10-04] MEDS: ONDANSETRON HCL 4 MG/2 ML VIAL IVP PRN (20:12)
[2016-10-04 20:55] LABS: C. DIFF EPI 027 PRESUMPTIVE NEGATIVE (NEGATIVE); C. DIFF TOXIN PCR NEGATIVE (NEGATIVE)
--- NOTE | 2016-10-04 22:46 | EKG ---
Date Performed: 10/03/2016 Time Performed: 16:13:43 PTAGE: 71 years EKG: Sinus rhythm MINIMAL ST DEPRESSION BORDERLINE ECG PREVIOUS TRACING : 04/09/2015 21.13 DOCTOR: Holly Connors Interpretating Date/Time 10/04/2016 22:45:07
[2016-10-05] VITALS (8 sets, daily range): BP systolic 101–189; BP diastolic 52–86; PULSE 63–88; RESP 18–20; TEMP 96.9–99.5; O2SAT 92–100
[2016-10-05] MEDS: PIPERACIL-TAZO 4.5 GM PREMIX 100 ML IV SCH ×4 (02:00→20:56)
[2016-10-05] MEDS: ONDANSETRON HCL 4 MG/2 ML VIAL IVP PRN ×3 (03:12→20:58)
[2016-10-05] MEDS: metroNIDAZOLE 500 MG INJ 100 ML IV SCH ×4 (05:13→23:30)
[2016-10-05] MEDS ORDERED: DIPHENOXYLATE/ATROPINE 2.5 MG/0.025 MG TAB PO PRN (08:00)
[2016-10-05] MEDS: NS + KCL 20 MEQ INJ 1,000 ML IV SCH ×2 (08:10→23:30)
[2016-10-05] MEDS: CARVEDILOL 12.5 MG TAB PO SCH (08:10)
[2016-10-05] MEDS: POTASSIUM CHLORIDE 10 MEQ CONTROLLED RELEASE TAB PO SCH ×2 (08:10→20:57)
[2016-10-05] MEDS: LACTOBACILLUS ACIDOPHILUS TAB PO SCH ×3 (08:10→17:27)
[2016-10-05] MEDS: SODIUM CHLORIDE 0.9% FLUSH 10 ML FLUSH IV FLUSH SCH ×2 (08:11→20:57)
[2016-10-05] MEDS: BUDESONIDE-FORMOTEROL 160/4.5 MCG INHALER INH SCH ×2 (08:11→21:03)
[2016-10-05] MEDS: MORPHINE SULFATE 4 MG/ML INJ IV PUSH PRN (08:12)
[2016-10-05 09:36] LABS: AUTOMATED NEUTROPHIL # 9.9 TH/MM3 (1.8-7.7); BASOPHIL % 0.4 % (0.0-2.0); EOSINOPHIL # 0.2 TH/MM3 (0-0.4); EOSINOPHIL % 1.8 % (0.0-4.0); HEMATOCRIT 35.8 % (35.0-46.0); LYMPH % 9.3 % (9.0-44.0); LYMPHOCYTE # 1.2 TH/MM3 (1.0-4.8); MEAN CELL VOLUME 81.7 FL (80.0-100.0); MEAN CORPUSCULAR HEMOGLOBIN 26.8 PG (27.0-34.0); MEAN CORPUSCULAR HGB CONC 32.8 % (32.0-36.0); MONO % 9.3 % (0.0-8.0); NEUT % 79.2 % (16.0-70.0); PLATELET COUNT 302 TH/MM3 (150-450); RED BLOOD COUNT 4.38 MIL/MM3 (4.00-5.30); RED CELL DISTRIBUTION WIDTH 13.6 % (11.6-17.2); WHITE BLOOD COUNT 12.4 TH/MM3 (4.0-11.0)
[2016-10-05 09:38] LABS: HEMO FLAGS AUTO DIFF
[2016-10-05] MEDS ORDERED: PNEUMOCOCCAL POLYVALENT INJ 25 MCG/0.5 ML SYR IM ONE (10:00)
[2016-10-05 10:10] LABS: BICARBONATE 23.9 MEQ/L (21.0-32.0); MAGNESIUM 1.9 MG/DL (1.5-2.5); POTASSIUM 3.9 MEQ/L (3.5-5.1)
[2016-10-05 10:22] LABS: BANDS 26 % (0-6); EOSINOPHILS 3 % (0-4); NEUTROPHIL # MANUAL DIFF 9.3 TH/MM3 (1.8-7.7); POLYS (SEG NEUTROPHILS) 49 % (16-70); WBC DIFF SAMPLE 100
[2016-10-05 10:24] LABS: SCAN/DIFF FINAL DIFF MANUAL
--- NOTE | 2016-10-05 10:37 | HHI.PR ---
Subjective Remarks Denies pain, denies N or V. Objective Vital Signs Date Time Temp Pulse Resp B/P Pulse Ox O2 Delivery O2 Flow Rate FiO2 10/05/16 09:59 85 115/52 92 10/05/16 08:17 18 10/05/16 08:00 98.2 88 19 169/69 95 176/78 189/84 10/05/16 04:27 98.1 80 20 166/70 100 10/05/16 01:23 99.5 74 20 125/59 100 10/05/16 00:00 97.4 63 18 101/54 95 10/04/16 20:25 97.7 68 18 98/51 95 10/04/16 16:36 98.2 68 18 111/56 96 107/53 113/52 10/04/16 16:05 98.2 68 16 111/56 96 107/53 113/52 10/04/16 12:32 98.8 81 18 116/54 95 117/64 113/57 I/O 10/04/16 10/04/16 10/04/16 10/05/16 10/05/16 10/05/16 06:59 14:59 22:59 06:59 14:59 22:59 Intake Total 240 ml 2049 ml 675 ml Balance 240 ml 2049 ml 675 ml Intake Oral 240 ml 240 ml IV Total 1809 ml 675 ml # Voids 1 3 # Bowel Movements 1 Result Diagram: 10/05/16 0850 10/05/16 0850 Objective Remarks VS-S Abd: benign Assessment and Plan Assessment and Plan Stable Full liquid diet. Harris Stephenson MD Oct 05, 2016 10:37
--- NOTE | 2016-10-05 12:35 | HHI.GIFU ---
GI Follow-up Note Consult Follow-up Subjective: Patient laying in bed comfortably. No N?V or abd pain. some loose stools. no bleeding Objective: PHYSICAL EXAMINATION: 168/75-84-16 No fever HEENT: no jaundice. Throat is clear. NECK: Neck is supple, no JVD, no lymphadenopathy. CHEST: Chest is clear to auscultation and percussion. ABDOMEN: Soft, nondistended, nontender; no hepatosplenomegaly; bowel sounds are present in all four quadrants. EXTREMITIES: No edema. SKIN: no jaundice. 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 Stool C. diff negative. +fecal WBC. awaiting stool culture. SR elevated at 64. Rotavirus negative ASSESSMENT/PLAN: 1. Abnormal CT scan--colitis on ct scan 2. Hx of an inflammatory mass in the sigmoid--a gastroscope would not pass this area. Bx of mass showed an inflammatory polyp 3. N/V/Diarrhea- ? infectious ? IBD PLAN: 1. bowel rest 2. stool path (CX pending) 3. Trial of Mesalamine (if stools cx negative and sx persist will consider Entocort) It was a pleasure seeing Katie Beard. Thank you for this consult. Entered by: Tobin Vargas MD Oct 05, 2016 12:35
--- NOTE | 2016-10-05 13:00 | HHI.PR ---
Subjective Remarks Follow-up colitis. Improving nausea, abdominal pain and loose stool. Discussed with RN and GI Objective Vitals Vital Signs Date Time Temp Pulse Resp B/P Pulse Ox O2 Delivery O2 Flow Rate FiO2 10/05/16 12:00 96.9 84 19 168/75 93 175/73 150/67 10/05/16 09:59 85 115/52 92 10/05/16 08:17 18 10/05/16 08:00 98.2 88 19 169/69 95 176/78 189/84 10/05/16 04:27 98.1 80 20 166/70 100 10/05/16 01:23 99.5 74 20 125/59 100 10/05/16 00:00 97.4 63 18 101/54 95 10/04/16 20:25 97.7 68 18 98/51 95 10/04/16 16:36 98.2 68 18 111/56 96 107/53 113/52 10/04/16 16:05 98.2 68 16 111/56 96 107/53 113/52 I/O 10/04/16 10/04/16 10/04/16 10/05/16 10/05/16 10/05/16 07:00 15:00 23:00 07:00 15:00 23:00 Intake Total 240 ml 2049 ml 675 ml Balance 240 ml 2049 ml 675 ml Intake Oral 240 ml 240 ml IV Total 1809 ml 675 ml # Voids 1 3 # Bowel Movements 1 Result Diagram: 10/05/16 0850 10/05/16 0850 Imaging Last Impressions Chest X-Ray 10/03/16 0000 Signed Impressions: Service Date/Time: September 17:41 - CONCLUSION: Trace right base atelectasis. No other evidence of acute cardiopulmonary disease. No free air seen in the upper abdomen. Harris Evans MD Abdomen/Pelvis CT 10/03/16 0000 Signed Impressions: Service Date/Time: September 19:21 - CONCLUSION: Long segment/nearly diffuse colitis, nonspecific but most likely infectious or inflammatory. No abscess, perforation, obstruction or other acute complication demonstrated. Harris Evans MD Abdomen X-Ray 10/03/16 0000 Signed Impressions: Service Date/Time: September 17:47 - CONCLUSION: Nonspecific and nonobstructive bowel gas pattern. No evidence of free air. Harris Evans MD Objective Remarks GENERAL: Well-developed, well-nourished in no distress SKIN: Warm and dry. HEAD: Atraumatic. Normocephalic. EYES: Pupils equal and round. No scleral icterus. No injection or drainage. ENT: No nasal bleeding or discharge. Mucous membranes pink and moist. NECK: Trachea midline. No JVD. CARDIOVASCULAR: Regular rate and rhythm. RESPIRATORY: No accessory muscle use. Clear to auscultation. Breath sounds equal bilaterally. GASTROINTESTINAL: Abdomen soft, improved tenderness lower quadrants MUSCULOSKELETAL: Extremities without clubbing, cyanosis, or edema. No obvious deformities. NEUROLOGICAL: Awake and alert. No obvious cranial nerve deficits. Motor grossly within normal limits. Five out of 5 muscle strength in the arms and legs. Normal speech. PSYCHIATRIC: Appropriate mood and affect; insight and judgment normal. Procedures none A/P Problem List: (1) Colitis ICD Code: K52.9 Status: Acute (2) Nausea vomiting and diarrhea ICD Code: R11.2 Status: Acute Assessment and Plan Colitis with N/V/D Hx of an inflammatory mass in the sigmoid--a gastroscope would not pass this area. Suboptimal CT colonography - GI ff, mesalamine added consider Enterocort - Consulted colorectal surgery . Diet advanced to full. Discontinue IV fluid if tolerated - Zosyn and Flagyl - Morphine 2 mg IV q3h PRN pain - Zofran 4 mg IV q6h PRN nausea/vomiting -Stool studies negative so far including C. difficile. Continue Lactinex and add Lomotil Syncope likely secondary to dehydration. She is not orthostatic. EKG sinus rhythm. Compared to previous EKG T inversions resolved. Continue telemetry monitoring. Fall precautions Hypokalemia secondary to above. Improved with replacement Repeat BMP and magnesium in the morning. Escherichia coli UTI. Patient on Zosyn Chronic medical conditions of congestive heart failure and hypertension. Monitor for fluid overload discontinue IV fluids DVT prophylaxis - SCDs/TEDs. Hold pharmacological prophylaxis pending colorectal surgery evaluation . Discharge Planning Not ready for discharge I spent 35 minutes [id number] with the patient or on the gill discussing the patient's disposition, prognosis, and plan of care with patient's caregivers. Over half the time spent was devoted to counseling the patient regarding care with caregivers Abando,Giancarlo MD Oct 05, 2016 13:00
[2016-10-05] MEDS: MESALAMINE HD 800 MG DELAYED RELEASE TAB PO SCH ×2 (14:42→20:58)
[2016-10-05] MEDS: RESP: ALBUTEROL 2.5 MG/IPRATROPIUM 0.5 MG NEB (PRN) NEB (15:45)
[2016-10-06] VITALS (9 sets, daily range): BP systolic 119–176; BP diastolic 64–91; PULSE 77–92; RESP 18–20; TEMP 96.1–98.1; O2SAT 94–100
[2016-10-06] MEDS: PIPERACIL-TAZO 4.5 GM PREMIX 100 ML IV SCH ×4 (02:20→21:31)
[2016-10-06] MEDS: ONDANSETRON HCL 4 MG/2 ML VIAL IVP PRN ×3 (02:20→21:30)
[2016-10-06] MEDS: MESALAMINE HD 800 MG DELAYED RELEASE TAB PO SCH ×3 (05:31→21:30)
[2016-10-06] MEDS: metroNIDAZOLE 500 MG INJ 100 ML IV SCH ×4 (05:31→23:04)
--- NOTE | 2016-10-06 08:08 | HHI.PR ---
Subjective Remarks Denies pain, c/o Nausea, no vomiting. Tolerating PO.Stooling not excessive Objective Vital Signs Date Time Temp Pulse Resp B/P Pulse Ox O2 Delivery O2 Flow Rate FiO2 10/06/16 03:12 98.1 82 18 126/77 100 10/06/16 03:04 85 10/06/16 01:42 97.8 77 20 149/67 100 10/05/16 21:56 97.5 71 19 142/62 98 10/05/16 16:00 97.0 80 19 148/74 94 149/86 138/68 10/05/16 12:00 96.9 84 19 168/75 93 175/73 150/67 10/05/16 09:59 85 115/52 92 10/05/16 08:17 18 I/O 10/05/16 10/05/16 10/05/16 10/06/16 10/06/16 10/06/16 07:00 15:00 23:00 07:00 15:00 23:00 Intake Total 675 ml 240 ml 973 ml 320 ml Balance 675 ml 240 ml 973 ml 320 ml Intake Oral 240 ml IV Total 675 ml 973 ml 320 ml # Voids 2 3 # Bowel Movements 0 Result Diagram: 10/05/16 0850 10/05/16 0850 Objective Remarks VS-S Abd: benign, non tender Assessment and Plan Assessment and Plan Stable- Tx per GI Regular diet, Consider Gastrograffin enema to further characterize left colon condition. Continue Piperacillin for UTI Harris Stephenson MD Oct 06, 2016 08:08
[2016-10-06] MEDS: NS + KCL 20 MEQ INJ 1,000 ML IV SCH (08:17)
[2016-10-06] MEDS: POTASSIUM CHLORIDE 10 MEQ CONTROLLED RELEASE TAB PO SCH ×2 (08:18→21:30)
[2016-10-06] MEDS: LACTOBACILLUS ACIDOPHILUS TAB PO SCH ×3 (08:18→17:04)
[2016-10-06] MEDS: BUDESONIDE-FORMOTEROL 160/4.5 MCG INHALER INH SCH ×2 (08:18→21:29)
[2016-10-06] MEDS: SODIUM CHLORIDE 0.9% FLUSH 10 ML FLUSH IV FLUSH SCH ×2 (08:19→21:31)
[2016-10-06] MEDS: CARVEDILOL 12.5 MG TAB PO SCH (08:19)
--- NOTE | 2016-10-06 11:41 | HHI.PR ---
Subjective Remarks Follow-up colitis. Still having loose stools. Developed shortness of breath after using the restroom. She had audible wheezing history of COPD. Discussed with RN Objective Vitals Vital Signs Date Time Temp Pulse Resp B/P Pulse Ox O2 Delivery O2 Flow Rate FiO2 10/06/16 08:36 87 10/06/16 08:00 97.8 91 19 176/91 95 169/82 154/81 10/06/16 03:12 98.1 82 18 126/77 100 10/06/16 03:04 85 10/06/16 01:42 97.8 77 20 149/67 100 10/05/16 21:56 97.5 71 19 142/62 98 10/05/16 16:00 97.0 80 19 148/74 94 149/86 138/68 10/05/16 12:00 96.9 84 19 168/75 93 175/73 150/67 I/O 10/05/16 10/05/16 10/05/16 10/06/16 10/06/16 10/06/16 07:00 15:00 23:00 07:00 15:00 23:00 Intake Total 675 ml 240 ml 973 ml 320 ml Balance 675 ml 240 ml 973 ml 320 ml Intake Oral 240 ml IV Total 675 ml 973 ml 320 ml # Voids 2 3 # Bowel Movements 0 Result Diagram: 10/05/16 0850 10/05/16 0850 Imaging Last Impressions Chest X-Ray 10/06/16 0000 Signed Impressions: Service Date/Time: Thursday, October 06, 2016 12:13 - CONCLUSION: 1. No acute findings. Joshua Loza MD Abdomen/Pelvis CT 10/03/16 0000 Signed Impressions: Service Date/Time: September 19:21 - CONCLUSION: Long segment/nearly diffuse colitis, nonspecific but most likely infectious or inflammatory. No abscess, perforation, obstruction or other acute complication demonstrated. Harris Evans MD Abdomen X-Ray 10/03/16 0000 Signed Impressions: Service Date/Time: September 17:47 - CONCLUSION: Nonspecific and nonobstructive bowel gas pattern. No evidence of free air. Harris Evans MD Objective Remarks GENERAL: Well-developed, well-nourished in respiratory distress SKIN: Clammy HEAD: Atraumatic. Normocephalic. EYES: Pupils equal and round. No scleral icterus. No injection or drainage. ENT: No nasal bleeding or discharge. Mucous membranes pink and moist. NECK: Trachea midline. JVD noted. CARDIOVASCULAR: Regular rate and rhythm. RESPIRATORY: No accessory muscle use. Decreased Breath sounds equal bilaterally. Scattered wheezes noted GASTROINTESTINAL: Abdomen soft, improved tenderness lower quadrants MUSCULOSKELETAL: Extremities without clubbing, cyanosis, or edema. No obvious deformities. NEUROLOGICAL: Awake and alert. No obvious cranial nerve deficits. Motor grossly within normal limits. Five out of 5 muscle strength in the arms and legs. Normal speech. PSYCHIATRIC: Appropriate mood and affect; insight and judgment normal. Procedures none A/P Problem List: (1) Colitis ICD Code: K52.9 Status: Acute (2) Nausea vomiting and diarrhea ICD Code: R11.2 Status: Acute Assessment and Plan Colitis with N/V/D Hx of an inflammatory mass in the sigmoid--a gastroscope would not pass this area. Suboptimal CT colonography - Continue mesalamine added consider Enterocort - Consulted colorectal surgery . Diet advanced to regular. Discontinue IV fluid if tolerated - Continue IV Flagyl - Morphine 2 mg IV q3h PRN pain - Zofran 4 mg IV q6h PRN nausea/vomiting - Stool studies negative so far including C. difficile. Continue Lactinex and Lomotil Respiratory distress secondary to COPD exacerbation suspect systolic and diastolic heart failure exacerbation. Repeat stat chest x-ray. Oxygen to keep saturation 92%, scheduled nebulizations, IV steroids for 3 doses and IV Lasix 1. We'll closely monitor Syncope likely secondary to dehydration. She is not orthostatic. EKG sinus rhythm. Compared to previous EKG T inversions resolved. Continue telemetry monitoring. Fall precautions Hypokalemia secondary to above. Improved with replacement Repeat BMP and magnesium in the morning. Escherichia coli UTI. We will discontinue Zosyn after 3 days of treatment Chronic medical conditions of congestive heart failure and hypertension. Monitor for fluid overload discontinue IV fluids DVT prophylaxis - SCDs/TEDs. Hold pharmacological prophylaxis pending colorectal surgery evaluation . Discharge Planning I spent 35 minutes [id number] with the patient or on the gill discussing the patient's disposition, prognosis, and plan of care with patient's caregivers. Over half the time spent was devoted to counseling the patient regarding care with caregivers Jeremy Aldana MD Oct 06, 2016 11:41
[2016-10-06] MEDS ORDERED: FUROSEMIDE 20 MG/2 ML VIAL IV PUSH ONE (11:45)
[2016-10-06] MEDS ORDERED: RESP: ALBUTEROL 2.5 MG/3 ML NEB (PRN) NEB (11:45)
--- NOTE | 2016-10-06 11:52 | HHI.GIFU ---
GI Follow-up Note Consult Follow-up Subjective: Patient has some nausea. loose stools better with Asacol Objective: PHYSICAL EXAMINATION: Vitals signs stable No fever CARDIAC: Regular rate and rhythm with no murmur gallop or rubs. ABDOMEN: Soft, nondistended, nontender; no hepatosplenomegaly; bowel sounds are present in all four quadrants. EXTREMITIES: No edema. SKIN: Normal; no rash; no jaundice. Available Data (labs, X- Rays, Procedes) : Stool cx negative so far ASSESSMENT/PLAN: 1. Abnormal CT scan--colitis on ct scan. 2. Hx of an inflammatory mass in the sigmoid--a gastroscope would not pass this area. Bx of mass showed an inflammatory polyp 3. N/V/Diarrhea- ? infectious ? IBD loose stools better on Asacol PLAN: 1. Tolerating full liquids with minimal nausea 2. Cont Asacol 3. Hold on Entocort It was a pleasure seeing Katie Beard. Thank you for this consult. Entered by: Tobin Vargas MD Oct 06, 2016 11:52
[2016-10-06] MEDS: RESP: ALBUTEROL 2.5 MG/IPRATROPIUM 0.5 MG NEB (SCH) NEB ×3 (11:53→21:20)
--- NOTE | 2016-10-06 12:35 | RADRPT ---
EXAM DATE/TIME: 10/06/2016 12:13 [facility] COMPARISON: No previous studies available for comparison. INDICATIONS : Patient is short of breath. MEDICAL HISTORY : Arthritis. SURGICAL HISTORY : Tonsillectomy. Hysterectomy. Cholecystectomy. ENCOUNTER: Subsequent ACUITY: 3 days PAIN SCORE: 0/10 LOCATION: Bilateral chest FINDINGS: A single view of the chest demonstrates the lungs to be symmetrically aerated without evidence of mas s, infiltrate or effusion. The cardiomediastinal contours are unremarkable. Osseous structures are intact. CONCLUSION: 1. No acute findings. Joshua Loza MD on October 06, 2016 at 12:31 Board Certified Radiologist. This report was verified electronically.
[2016-10-06] MEDS: methylPREDNISolone SOD SUCC 40 MG/1 ML VIAL IV PUSH SCH ×2 (13:04→21:30)
[2016-10-06 13:53] LABS: BICARBONATE 26.7 MEQ/L (21.0-32.0); MAGNESIUM 1.9 MG/DL (1.5-2.5); POTASSIUM 3.9 MEQ/L (3.5-5.1)
[2016-10-07] VITALS (9 sets, daily range): BP systolic 110–178; BP diastolic 61–89; PULSE 80–88; RESP 18–21; TEMP 95.1–98.7; O2SAT 97–100
[2016-10-07] MEDS: PIPERACIL-TAZO 4.5 GM PREMIX 100 ML IV SCH ×4 (02:50→22:31)
[2016-10-07] MEDS: ONDANSETRON HCL 4 MG/2 ML VIAL IVP PRN (03:40)
[2016-10-07] MEDS: methylPREDNISolone SOD SUCC 40 MG/1 ML VIAL IV PUSH SCH (06:07)
[2016-10-07] MEDS: MESALAMINE HD 800 MG DELAYED RELEASE TAB PO SCH ×3 (06:07→22:32)
[2016-10-07] MEDS: metroNIDAZOLE 500 MG INJ 100 ML IV SCH ×2 (06:07→12:23)
[2016-10-07] MEDS: RESP: ALBUTEROL 2.5 MG/IPRATROPIUM 0.5 MG NEB (SCH) NEB ×4 (07:42→21:56)
[2016-10-07] MEDS: CARVEDILOL 12.5 MG TAB PO SCH (08:18)
[2016-10-07] MEDS: POTASSIUM CHLORIDE 10 MEQ CONTROLLED RELEASE TAB PO SCH ×2 (08:18→22:32)
[2016-10-07] MEDS: LACTOBACILLUS ACIDOPHILUS TAB PO SCH ×3 (08:18→17:06)
[2016-10-07] MEDS: SODIUM CHLORIDE 0.9% FLUSH 10 ML FLUSH IV FLUSH SCH ×2 (08:18→22:31)
[2016-10-07] MEDS: BUDESONIDE-FORMOTEROL 160/4.5 MCG INHALER INH SCH ×2 (08:19→23:54)
--- NOTE | 2016-10-07 09:41 | HHI.GIFU ---
GI Follow-up Note Consult Follow-up Subjective: Patient laying in bed. states stools loose but there is some form now. no blood . no abd pain. on regular diet Objective: PHYSICAL EXAMINATION: Vitals signs stable No fever CARDIAC: Regular rate and rhythm with no murmur gallop or rubs. ABDOMEN: Soft, nondistended, nontender; no hepatosplenomegaly; bowel sounds are present in all four quadrants. EXTREMITIES: No edema. SKIN: Normal; no rash; no jaundice. 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 Abnormal CT scan--colitis. Sed rate elevated. On Asacol for this. Was placed on steroids also for COPD 2. Hx of an inflammatory mass in the sigmoid--a gastroscope would not pass this area. Bx of mass showed an inflammatory polyp 3. N/V/Diarrhea- ? infectious ? IBD loose stools better on Asacol and steriods PLAN: 1. Tolerating regular diet 2. Cont Asacol 3. pts bowel did respond somewhat with IV steriods (for COPD). unfortunately Entocort and Uceris are non-formulary and are safer options than systemic steriods. It was a pleasure seeing Katie Beard. Thank you for this consult. Entered by: Tobin Vargas MD Oct 07, 2016 09:41
[2016-10-07 10:11] LABS: POTASSIUM 3.8 MEQ/L (3.5-5.1)
--- NOTE | 2016-10-07 10:31 | HHI.PR ---
Subjective Remarks Follow-up colitis. Improving diarrhea less frequent and stools are firming up. For Gastrografin study today. Denies shortness of breath. Discussed with RN Objective Vitals Vital Signs Date Time Temp Pulse Resp B/P Pulse Ox O2 Delivery O2 Flow Rate FiO2 10/07/16 08:31 84 10/07/16 08:08 96.7 88 18 135/89 100 10/07/16 07:44 98 Nasal Cannula 2.00 10/07/16 04:00 97.8 85 18 178/81 98 10/07/16 00:43 84 10/07/16 00:00 95.7 83 18 147/69 99 10/06/16 20:00 96.1 84 18 119/64 94 10/06/16 16:00 96.8 92 18 146/91 96 10/06/16 12:00 97.0 91 20 132/83 97 10/06/16 11:55 98 Nasal Cannula 2.00 I/O 10/06/16 10/06/16 10/06/16 10/07/16 10/07/16 10/07/16 07:00 15:00 23:00 07:00 15:00 23:00 Intake Total 330 ml 520 ml 485 ml 347 ml Balance 330 ml 520 ml 485 ml 347 ml Intake Oral 480 ml IV Total 330 ml 40 ml 485 ml 347 ml # Voids 10 2 # Bowel Movements 1 1 2 Result Diagram: 10/05/16 0850 10/07/16 0905 Imaging Last Impressions Chest X-Ray 10/06/16 0000 Signed Impressions: Service Date/Time: Thursday, October 06, 2016 12:13 - CONCLUSION: 1. No acute findings. Joshua Loza MD Abdomen/Pelvis CT 10/03/16 0000 Signed Impressions: Service Date/Time: September 19:21 - CONCLUSION: Long segment/nearly diffuse colitis, nonspecific but most likely infectious or inflammatory. No abscess, perforation, obstruction or other acute complication demonstrated. Harris Evans MD Abdomen X-Ray 10/03/16 0000 Signed Impressions: Service Date/Time: September 17:47 - CONCLUSION: Nonspecific and nonobstructive bowel gas pattern. No evidence of free air. Harris Evans MD Objective Remarks GENERAL: Well-developed, well-nourished in no distress SKIN: Clammy HEAD: Atraumatic. Normocephalic. EYES: Pupils equal and round. No scleral icterus. No injection or drainage. ENT: No nasal bleeding or discharge. Mucous membranes pink and moist. NECK: Trachea midline. JVD noted. CARDIOVASCULAR: Regular rate and rhythm. RESPIRATORY: No accessory muscle use. Decreased Breath sounds equal bilaterally. No wheezes GASTROINTESTINAL: Abdomen soft, improved tenderness lower quadrants MUSCULOSKELETAL: Extremities without clubbing, cyanosis, or edema. No obvious deformities. NEUROLOGICAL: Awake and alert. No obvious cranial nerve deficits. Motor grossly within normal limits. Five out of 5 muscle strength in the arms and legs. Normal speech. PSYCHIATRIC: Appropriate mood and affect; insight and judgment normal. Procedures none A/P Problem List: (1) Colitis ICD Code: K52.9 Status: Acute (2) Nausea vomiting and diarrhea ICD Code: R11.2 Status: Acute Assessment and Plan Colitis with N/V/D Hx of an inflammatory mass in the sigmoid--a gastroscope would not pass this area. Suboptimal CT colonography - Continue mesalamine added consider Enterocort - Consulted colorectal surgery . Diet advanced to regular. Discontinue IV fluid if tolerated - Continue IV Flagyl discontinue Zosyn - Morphine 2 mg IV q3h PRN pain - Zofran 4 mg IV q6h PRN nausea/vomiting - Stool studies negative so far including C. difficile. Continue Lactinex and Lomotil Respiratory distress secondary to COPD exacerbation suspect systolic and diastolic heart failure exacerbation. Repeat chest x-ray negative. Improved with nebulizations, IV steroids and Lasix. Oxygen to keep saturation 92% and scheduled nebulizations We'll closely monitor Syncope likely secondary to dehydration. She is not orthostatic. EKG sinus rhythm. Compared to previous EKG T inversions resolved. Continue telemetry monitoring. Fall precautions Hypokalemia secondary to above. Improved with replacement Escherichia coli UTI. Discontinue Zosyn after 3 days of treatment Chronic medical conditions of congestive heart failure and hypertension. Monitor for fluid overload discontinue IV fluids DVT prophylaxis - SCDs/TEDs. Early ambulation Jeremy Aldana MD Oct 07, 2016 10:31
[2016-10-07] MEDS ORDERED: MESA1TAB2 PO (10:34)
[2016-10-07] MEDS ORDERED: LACT PO (10:34)
[2016-10-07] MEDS ORDERED: HYDR-3516 PO (10:34)
--- NOTE | 2016-10-07 10:34 | HHI.DCPOC ---
Discharge Care Plan Diagnosis: (1) Colitis Your Health Problems Are: Difficulty with ADL Exercise Tolerance Goals to Promote Your Health * To prevent worsening of your condition and complications * To maintain your health at the optimal level Directions to Meet Your Goals Take your medications as prescribed Follow your dietary instruction Follow activity as directed Keep your appointments as scheduled Take your immunizations and boosters as scheduled If your symptoms worsen call your PCP, if no PCP go to Urgent Care Center or Emergency Room Smoking is Dangerous to Your Health. Avoid second hand smoke Call the 24-hour hour crisis hotline for domestic abuse at Jeremy Aldana MD Oct 07, 2016 10:34
[2016-10-07] MEDS ORDERED: ENTOCORT 9 MG PO SCH (11:15)
[2016-10-07] MEDS ORDERED: DIATRIZOATE MEGLUM/DIATRIZOATE SOD 120 ML BTL (for RAD DIAG) RECTAL ONE (11:34)
--- NOTE | 2016-10-07 12:33 | RADRPT ---
EXAM DATE/TIME: 10/07/2016 10:35 [facility] COMPARISON: CT ABDOMEN & PELVIS W CONTRAST, October 03, 2016, 19:21. INDICATIONS : Evaluate inflammation from colitis. FLUORO TIME: 0.9 minutes IMAGE COUNT: 20 CONTRAST: 1. [facility] MEDICAL HISTORY : Hypertension. Colitis. SURGICAL HISTORY : Hysterectomy. Cholecystectomy. ENCOUNTER: Initial ACUITY: 3 days PAIN SCORE: 10/10 LOCATION: Right lower quadrant abdomen. 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 Clips are seen in the right upper quadrant. There appear t o be round areas of focal density in the left upper quadrant which may be related to ingested materia l. There is degenerative change in the lower lumbar spine. Subsequently a rectal tube was placed an d Gastrografin was instilled through the rectal tube. The Gastrografin freely flowed to the cecum ev entually filling the terminal ileum. The colon did have a somewhat shaggy appearance involving much of the ascending colon, transverse colon and sigmoid region. Long segments of the sigmoid colon did not open. This limits evaluation of the mucosal detail. There are diverticula seen throughout the d escending colon and portions of the sigmoid colon. CONCLUSION: Suspected fairly diffuse colitis with relative sparing of the descending colon. There is long segmen ts of the sigmoid colon that do not fully open. This appearance is most suggestive of inflammatory c hange. A focal mass is not clearly identified; however, the lack of full distention limits evaluatio n of the sigmoid colon. The remaining aspects of the colon clearly have inflammatory change and coli tis. It would be suggested the patient be treated and when the symptoms clear either direct inspecti on or a barium enema could be performed to try to more fully evaluate the sigmoid colon. Harris Hess MD on October 07, 2016 at 11:52 Board Certified Radiologist. This report was verified electronically.
--- NOTE | 2016-10-07 16:37 | HHI.PR ---
Subjective Remarks C/R Surg afebrile, VSS still loose stool min pain no appetite Objective - Vital Signs Date Time Temp Pulse Resp B/P Pulse Ox O2 Delivery O2 Flow Rate FiO2 10/07/16 08:31 84 10/07/16 08:08 96.7 18 135/89 100 10/07/16 07:44 Nasal Cannula 2.00 Result Diagram: 10/05/16 0850 10/07/16 0905 Objective Remarks PE alert Abd - full, min tympany, non-tender XRAY reviewed - non-sp changes throughout colon, no obstruction A/P Assessment and Plan Imp: Non-sp colitis cultures all neg will try colonoscopy with enteroscope to obtain additional biopsies Dung Guillen MD Oct 07, 2016 16:37
[2016-10-08] VITALS (7 sets, daily range): BP systolic 130–141; BP diastolic 61–75; PULSE 68–98; RESP 16–20; TEMP 97.6–98.8; O2SAT 96–99
[2016-10-08] MEDS: PIPERACIL-TAZO 4.5 GM PREMIX 100 ML IV SCH ×2 (03:10→08:09)
[2016-10-08] MEDS: MESALAMINE HD 800 MG DELAYED RELEASE TAB PO SCH ×3 (06:31→21:22)
[2016-10-08] MEDS ORDERED: LACTATED RINGER'S 1000 ML IV PRN (07:30)
[2016-10-08] MEDS ORDERED: POVIDONE IODINE 5% (ANTISEPSIS KIT) 4 APPLICATIONS EACH NARE PRN (07:30)
[2016-10-08] MEDS ORDERED: METOPROLOL TARTRATE 25 MG TAB PO PRN (07:30)
[2016-10-08] MEDS ORDERED: CHLORHEXIDINE GLUCONATE 2 % 1 PACK (2 CLOTHS) TOPICAL PRN (07:30)
[2016-10-08] MEDS ORDERED: INSULIN HUMAN REGULAR 1,000 UNITS/10 ML VIAL SQ PRN (07:30)
[2016-10-08] MEDS ORDERED: SODIUM CHLORID 0.9% 500 ML IV PRN (07:30)
[2016-10-08] MEDS: ONDANSETRON HCL 4 MG/2 ML VIAL IVP PRN ×2 (08:11→17:59)
[2016-10-08] MEDS: BUDESONIDE-FORMOTEROL 160/4.5 MCG INHALER INH SCH ×2 (08:18→21:00)
[2016-10-08] MEDS: SODIUM CHLORIDE 0.9% FLUSH 10 ML FLUSH IV FLUSH SCH ×2 (08:19→21:22)
[2016-10-08] MEDS: RESP: ALBUTEROL 2.5 MG/IPRATROPIUM 0.5 MG NEB (SCH) NEB ×4 (08:27→21:06)
[2016-10-08] MEDS: POTASSIUM CHLORIDE 10 MEQ CONTROLLED RELEASE TAB PO SCH ×2 (09:00→21:22)
[2016-10-08] MEDS: LACTOBACILLUS ACIDOPHILUS TAB PO SCH ×3 (09:00→18:00)
[2016-10-08] MEDS: CARVEDILOL 12.5 MG TAB PO SCH (09:00)
--- NOTE | 2016-10-08 10:05 | HHI.PR ---
Subjective Remarks F/u colitis. Loose stools overnight after colon prep awaiting c scope. No SOB dw RN Objective Vitals Vital Signs Date Time Temp Pulse Resp B/P Pulse Ox O2 Delivery O2 Flow Rate FiO2 10/08/16 08:27 97 21 10/08/16 07:30 97.8 83 18 141/66 98 10/08/16 04:21 98.8 68 17 130/65 96 10/08/16 00:00 97.6 80 18 130/64 97 10/07/16 21:58 98 Nasal Cannula 2.00 10/07/16 20:00 95.1 88 21 133/63 100 10/07/16 17:09 98.7 80 20 110/61 97 I/O 10/07/16 10/07/16 10/07/16 10/08/16 10/08/16 10/08/16 07:00 15:00 23:00 07:00 15:00 23:00 Intake Total 347 ml 960 ml 400 ml Balance 347 ml 960 ml 400 ml Intake Oral 960 ml 400 ml IV Total 347 ml # Voids 2 6 1 # Bowel Movements 2 2 0 Result Diagram: 10/05/16 0850 10/07/16 0905 Imaging Last Impressions Enema w/Water Soluble 10/07/16 0600 Signed Impressions: Service Date/Time: Friday, October 07, 2016 10:35 - CONCLUSION: Suspected fairly diffuse colitis with relative sparing of the descending colon. There is long segments of the sigmoid colon that do not fully open. This appearance is most suggestive of inflammatory change. A focal mass is not clearly identified; however, the lack of full distention limits evaluation of the sigmoid colon. The remaining aspects of the colon clearly have inflammatory change and colitis. It would be suggested the patient be treated and when the symptoms clear either direct inspection or a barium enema could be performed to try to more fully evaluate the sigmoid colon. Harris Hess MD Chest X-Ray 10/06/16 0000 Signed Impressions: Service Date/Time: Thursday, October 06, 2016 12:13 - CONCLUSION: 1. No acute findings. Joshua Loza MD Abdomen/Pelvis CT 10/03/16 0000 Signed Impressions: Service Date/Time: September 19:21 - CONCLUSION: Long segment/nearly diffuse colitis, nonspecific but most likely infectious or inflammatory. No abscess, perforation, obstruction or other acute complication demonstrated. Harris Evans MD Abdomen X-Ray 10/03/16 0000 Signed Impressions: Service Date/Time: September 17:47 - CONCLUSION: Nonspecific and nonobstructive bowel gas pattern. No evidence of free air. Harris Evans MD Objective Remarks GENERAL: Well-developed, well-nourished in no distress Skin: No rash dry HEAD: Atraumatic. Normocephalic. EYES: Pupils equal and round. No scleral icterus. No injection or drainage. ENT: No nasal bleeding or discharge. Mucous membranes pink and moist. NECK: Trachea midline. JVD noted. CARDIOVASCULAR: Regular rate and rhythm. RESPIRATORY: No accessory muscle use. Decreased Breath sounds equal bilaterally. No wheezes GASTROINTESTINAL: Abdomen soft, improved tenderness lower quadrants MUSCULOSKELETAL: Extremities without clubbing, cyanosis, or edema. No obvious deformities. NEUROLOGICAL: Awake and alert. No obvious cranial nerve deficits. Motor grossly within normal limits. Five out of 5 muscle strength in the arms and legs. Normal speech. PSYCHIATRIC: Appropriate mood and affect; insight and judgment normal. Procedures For C scope today A/P Problem List: (1) Colitis ICD Code: K52.9 Status: Acute (2) Nausea vomiting and diarrhea ICD Code: R11.2 Status: Acute Assessment and Plan Colitis with N/V/D Hx of an inflammatory mass in the sigmoid--a gastroscope would not pass this area. Suboptimal CT colonography. - Continue mesalamine added consider Entocort or Uceris - Rpt cscope per colorectal surgery . - Continue IV Flagyl - Morphine 2 mg IV q3h PRN pain - Zofran 4 mg IV q6h PRN nausea/vomiting - Stool studies negative so far including C. difficile. Continue Lactinex and Lomotil Respiratory distress secondary to COPD exacerbation suspect systolic and diastolic heart failure exacerbation. Repeat chest x-ray negative. Improved with nebulizations, IV steroids and Lasix. Oxygen to keep saturation 92% and scheduled nebulizations We'll closely monitor Syncope likely secondary to dehydration. She is not orthostatic. EKG sinus rhythm. Compared to previous EKG T inversions resolved. Continue telemetry monitoring. Fall precautions Hypokalemia secondary to above. Improved with replacement Escherichia coli UTI. S/p Zosyn after 3 days of treatment Chronic medical conditions of congestive heart failure and hypertension. Monitor for fluid overload discontinue IV fluids DVT prophylaxis - SCDs/TEDs. Early ambulation Discharge Planning Discharge when cleared by GI and CRS Jeremy Aldana MD Oct 08, 2016 10:05
--- NOTE | 2016-10-08 11:11 | HHI.GIFU ---
GI Follow-up Note Consult Follow-up Subjective: Patient laying in bed comfortably. Dr. Guillen will attempt a colonoscopy to see if he can get past the mid sigmoid inflammatory mass Objective: PHYSICAL EXAMINATION: Vitals signs stable No fever CARDIAC: Regular rate and rhythm with no murmur gallop or rubs. ABDOMEN: Soft, nondistended, nontender; no hepatosplenomegaly; bowel sounds are present in all four quadrants. EXTREMITIES: No clubbing, cyanosis, or edema. SKIN: Normal; no rash; no jaundice. 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 Available Data (labs, X- Rays, Procedues) : ASSESSMENT/PLAN: 1. Abnormal CT scan--colitis. Sed rate elevated. On Asacol for this. Was placed on steroids also for COPD. colonoscopy today 2. Hx of an inflammatory mass in the sigmoid--a gastroscope would not pass this area. Bx of mass showed an inflammatory polyp 3. N/V/Diarrhea- ? infectious ? IBD loose stools better on Asacol and steriods PLAN: 1. awaiting colonoscopy 2. Cont Asacol 3. pts bowel did respond somewhat with IV steriods (for COPD). unfortunately Entocort and Uceris are non-formulary and are safer options than systemic steriods. 4. Dr. Duvall will see pt 10/09/16 It was a pleasure seeing Katie Beard. Thank you for this consult. Entered by: Tobin Vargas MD Oct 08, 2016 11:11
[2016-10-08] MEDS ORDERED: PROPOFOL 200 MG/20 ML AMP IV PUSH ONE (15:53)
[2016-10-08] MEDS: metroNIDAZOLE 500 MG TAB PO SCH ×2 (18:00→21:22)
[2016-10-09 00:14] VITALS: BP 153/89; PULSE 104; RESP 20; TEMP 97.5; O2SAT 98
[2016-10-09] MEDS: ACETAMINOPHEN/HYDROcodone 325 MG/5 MG TAB PO PRN ×2 (04:26→13:16)
[2016-10-09 04:45] VITALS: BP 157/66; PULSE 78; RESP 21; TEMP 97.7; O2SAT 95
[2016-10-09] MEDS: MESALAMINE HD 800 MG DELAYED RELEASE TAB PO SCH ×2 (05:52→13:12)
[2016-10-09] MEDS: metroNIDAZOLE 500 MG TAB PO SCH ×2 (05:52→13:12)
[2016-10-09 08:10] VITALS: BP 115/57; PULSE 82; RESP 16; TEMP 97.1; O2SAT 97
[2016-10-09 08:13] LABS: AUTOMATED NEUTROPHIL # 11.7 TH/MM3 (1.8-7.7); BASOPHIL % 0.3 % (0.0-2.0); EOSINOPHIL # 0.2 TH/MM3 (0-0.4); EOSINOPHIL % 1.2 % (0.0-4.0); HEMATOCRIT 34.7 % (35.0-46.0); HEMO FLAGS DIFF FINAL; LYMPH % 12.9 % (9.0-44.0); MEAN CELL VOLUME 80.7 FL (80.0-100.0); MEAN CORPUSCULAR HEMOGLOBIN 26.6 PG (27.0-34.0); MONO % 9.6 % (0.0-8.0); PLATELET COUNT 372 TH/MM3 (150-450); RED BLOOD COUNT 4.29 MIL/MM3 (4.00-5.30); WHITE BLOOD COUNT 15.4 TH/MM3 (4.0-11.0)
[2016-10-09] MEDS: LACTOBACILLUS ACIDOPHILUS TAB PO SCH ×3 (08:14→17:12)
[2016-10-09] MEDS: CARVEDILOL 12.5 MG TAB PO SCH (08:14)
[2016-10-09] MEDS: POTASSIUM CHLORIDE 10 MEQ CONTROLLED RELEASE TAB PO SCH (08:14)
[2016-10-09] MEDS: SODIUM CHLORIDE 0.9% FLUSH 10 ML FLUSH IV FLUSH SCH (08:15)
[2016-10-09] MEDS: BUDESONIDE-FORMOTEROL 160/4.5 MCG INHALER INH SCH (08:15)
[2016-10-09 08:28] LABS: BICARBONATE 25.5 MEQ/L (21.0-32.0); MAGNESIUM 2.2 MG/DL (1.5-2.5); POTASSIUM 3.5 MEQ/L (3.5-5.1)
[2016-10-09] MEDS: RESP: ALBUTEROL 2.5 MG/IPRATROPIUM 0.5 MG NEB (SCH) NEB ×3 (09:12→16:00)
[2016-10-09 09:13] VITALS: O2SAT 98
--- NOTE | 2016-10-09 09:27 | HHI.PR ---
Subjective Remarks Follow-up colitis. Feeling better no more diarrhea. Denies abdominal pain. Wants to go home. Discussed with RN, patient can be discharged when cleared by GI and CRS. Colonoscopy shows severe colitis affecting transverse and descending colon with smooth stricture affecting r rectosigmoid no obstruction. Objective Vitals Vital Signs Date Time Temp Pulse Resp B/P Pulse Ox O2 Delivery O2 Flow Rate FiO2 10/09/16 09:13 98 10/09/16 08:10 97.1 82 16 115/57 97 10/09/16 05:26 20 10/09/16 04:45 97.7 78 21 157/66 95 10/09/16 00:14 97.5 104 20 153/89 98 10/08/16 20:43 97.8 98 20 130/75 99 10/08/16 16:21 95 18 149/71 99 10/08/16 16:11 93 18 140/71 98 10/08/16 16:01 98.8 93 18 128/78 99 10/08/16 15:25 98.4 91 16 133/61 98 10/08/16 11:42 98.4 91 18 133/61 98 I/O 10/08/16 10/08/16 10/08/16 10/09/16 10/09/16 10/09/16 07:00 15:00 23:00 07:00 15:00 23:00 Intake Total 400 ml 100 ml 300 ml 720 ml Balance 400 ml 100 ml 300 ml 720 ml Intake Oral 400 ml 720 ml IV Total 100 ml Other 300 ml # Voids 1 1 3 # Bowel Movements 0 1 0 Result Diagram: 10/09/16 0653 10/09/16 0653 Objective Remarks GENERAL: Well-developed, well-nourished in no distress Skin: No rash dry HEAD: Atraumatic. Normocephalic. EYES: Pupils equal and round. No scleral icterus. No injection or drainage. ENT: No nasal bleeding or discharge. Mucous membranes pink and moist. NECK: Trachea midline. JVD noted. CARDIOVASCULAR: Regular rate and rhythm. RESPIRATORY: No accessory muscle use. Decreased Breath sounds equal bilaterally. No wheezes GASTROINTESTINAL: Abdomen soft, no tenderness MUSCULOSKELETAL: Extremities without clubbing, cyanosis, or edema. No obvious deformities. NEUROLOGICAL: Awake and alert. No obvious cranial nerve deficits. Motor grossly within normal limits. Five out of 5 muscle strength in the arms and legs. Normal speech. PSYCHIATRIC: Appropriate mood and affect; insight and judgment normal. Procedures C scope A/P Problem List: (1) Colitis ICD Code: K52.9 Status: Acute (2) Nausea vomiting and diarrhea ICD Code: R11.2 Status: Acute Assessment and Plan Colitis with N/V/D Hx of an inflammatory mass in the sigmoid--a gastroscope would not pass this area. Suboptimal CT colonography. Repeat Colonoscopy shows severe colitis affecting transverse and descending colon with smooth stricture affecting r rectosigmoid no obstruction. - Continue mesalamine consider Entocort or Uceris - Continue by mouth Flagyl - Morphine 2 mg IV q3h PRN pain - Zofran 4 mg IV q6h PRN nausea/vomiting - Stool studies negative so far including C. difficile. Continue Lactinex and Lomotil Respiratory distress secondary to COPD exacerbation suspect systolic and diastolic heart failure exacerbation. Repeat chest x-ray negative. Improved with nebulizations, IV steroids and Lasix. Oxygen to keep saturation 92% and scheduled nebulizations We'll closely monitor Syncope likely secondary to dehydration. She is not orthostatic. EKG sinus rhythm. Compared to previous EKG T inversions resolved. Continue telemetry monitoring. Fall precautions Hypokalemia secondary to above. Improved with replacement Escherichia coli UTI. S/p Zosyn after 3 days of treatment Leukocytosis likely secondary to steroid. Clinically she is improved Hyperglycemia. Obtain A1c Chronic medical conditions of congestive heart failure and hypertension. Monitor for fluid overload discontinue IV fluids DVT prophylaxis - SCDs/TEDs. Early ambulation Discharge Planning Discharge when cleared by GI and CRS Jeremy Aldana MD Oct 09, 2016 09:27
--- NOTE | 2016-10-09 09:44 | HHI.GIFU ---
GI Follow-up Note Consult Follow-up Subjective: Patient laying in bed comfortably, she denies abd pain, nausea or significant diarrhea. She is concerned about what her Dx will be. Per Dr Proctor, Dr Guillen was able to get mostly around colon and she has a significant colitis. Bxs pending. Objective: PHYSICAL EXAMINATION: Vitals signs stable No fever CHEST: Breathing non-labored ABDOMEN: Soft, nondistended, nontender. 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 Available Data (labs, X- Rays, Procedues) : ASSESSMENT/PLAN: 1. Colitis-f/u biopsy results. Continue mesalamine. She has begun eating. If [facility] can d/c home and f/u office. It was a pleasure seeing Katie Beard. Thank you for this consult. Entered by: Anshul Rodriguez MD Oct 09, 2016 09:44
[2016-10-09] MEDS ORDERED: POTASSIUM CHLORIDE 20 MEQ CONTROLLED RELEASE TAB PO ONE (10:00)
[2016-10-09 11:30] VITALS: BP 110/59; PULSE 84; RESP 24; TEMP 95.6; O2SAT 97
[2016-10-09 15:45] VITALS: BP 110/62; PULSE 91; RESP 21; TEMP 96.8; O2SAT 98
[2016-10-09] MEDS ORDERED: METR-1 PO (16:21)
[2016-10-09 17:29] LABS: HEMOGLOBIN A1a 1.2 %; HEMOGLOBIN A1b 1.8 %; HEMOGLOBIN Ao 84.4 %; HEMOGLOBIN LA1C 2.3 %; HEMOGLOBIN P3 4.2 %
--- NOTE | 2016-10-10 07:18 | MR ---
cc: JULIA IGLESIAS M.D., SUNIL P. M.D. DATE 10/08/2016 PREOPERATIVE DIAGNOSIS Acute colitis, abnormal CT scan. PROCEDURE Colonoscopy to cecum with biopsies. POSTOPERATIVE DIAGNOSIS 1. Severe nonspecific colitis of the right colon, transverse colon, descending colon. 2. Mild nonspecific colitis of the rectosigmoid and rectum. 3. Stricture of the rectosigmoid SURGEON Dr. Iglesias PROCEDURE The patient was placed in the left lateral decubitus position. After adequate anesthesia sedation, rectal exam confirmed the emptiness of the rectal vault. The Olympus pediatric colonoscope was then introduced into the rectum and under direct vision passed through the proximal colon noting a stricture in the sigmoid colon that appeared to be very smooth walled and was nonobstructing. The scope did pass through without significant difficulty. The scope passed up around toward the right colon and down toward the cecum. There was marked inflammation of the mucosa with granularity and friability. Several areas did appear to have the appearance of pseudomembranes. Several random biopsies were obtained throughout the colon. The process was most severe on the right colon and transverse. The descending colon was also moderately affected with less inflammation in the distal sigmoid going down toward the rectosigmoid and rectal vault. No sign of acute obstruction was seen. Again, random biopsies were obtained in multiple sites. The patient tolerated the procedure quite well and was brought to the recovery room in stable condition. MD COLT Yuen/KIN /10:06 AM /7:16 AM
--- NOTE | 2016-10-10 07:46 | HHI.DS ---
Discharge Summary Admission Date Oct 03, 2016 at 20:20 Discharge Date: Oct 09, 2016 Admitting Diagnosis Colitis, N/V/D (1) Colitis ICD Code: K52.9 Diagnosis: Principal (2) Nausea vomiting and diarrhea ICD Code: R11.2 Diagnosis: Principal Procedures C scope Brief History - From Admission Written by Isabel Hendrickson, acting as scribe for Dr. Valencia on 10/03/16 at 21:42. Ms. Beard is complaining of progressively worsening left upper quadrant abdominal pain. Last Friday had CT colonography at [facility] and has been having extreme pain since then. Symptoms accompanied by nausea and vomiting with green emesis and diarrhea (has chronic diarrhea for months). Stool color is not black or red. Fevers for 2 - 3 days - not measured. Also had syncopal episodes over the past week - would feel near-syncopal and attempt to hold onto something but would then pass out - occurred 2 or 3 times. Has emphysema with chronic shortness of breath. Colonoscopy with suspicious polyps. Has a colon mass requiring biopsy. Denies hematuria or dysuria, . CBC/BMP: 10/09/16 0653 10/09/16 0653 Significant Findings Laboratory Tests Test 10/07/16 10/09/16 09:05 06:53 Sodium Level 132 MEQ/L 135 MEQ/L (136-145) (136-145) Chloride Level 97 MEQ/L (98-107) Estimat Glomerular Filtration 80 ML/MIN (>89) Rate Random Glucose 167 MG/DL 148 MG/DL (74-106) (74-106) Calcium Level 8.2 MG/DL 7.8 MG/DL (8.5-10.1) (8.5-10.1) White Blood Count 15.4 TH/MM3 (4.0-11.0) Hemoglobin 11.4 GM/DL (11.6-15.3) Hematocrit 34.7 % (35.0-46.0) Mean Corpuscular Hemoglobin 26.6 PG (27.0-34.0) Neutrophils (%) (Auto) 76.0 % (16.0-70.0) Monocytes (%) (Auto) 9.6 % (0.0-8.0) Neutrophils # (Auto) 11.7 TH/MM3 (1.8-7.7) Monocytes # (Auto) 1.5 TH/MM3 (0-0.9) Imaging Last Impressions Enema w/Water Soluble 10/07/16 0600 Signed Impressions: Service Date/Time: Friday, October 07, 2016 10:35 - CONCLUSION: Suspected fairly diffuse colitis with relative sparing of the descending colon. There is long segments of the sigmoid colon that do not fully open. This appearance is most suggestive of inflammatory change. A focal mass is not clearly identified; however, the lack of full distention limits evaluation of the sigmoid colon. The remaining aspects of the colon clearly have inflammatory change and colitis. It would be suggested the patient be treated and when the symptoms clear either direct inspection or a barium enema could be performed to try to more fully evaluate the sigmoid colon. Harris Hess MD Chest X-Ray 10/06/16 0000 Signed Impressions: Service Date/Time: Thursday, October 06, 2016 12:13 - CONCLUSION: 1. No acute findings. Joshua Loza MD Abdomen/Pelvis CT 10/03/16 0000 Signed Impressions: Service Date/Time: September 19:21 - CONCLUSION: Long segment/nearly diffuse colitis, nonspecific but most likely infectious or inflammatory. No abscess, perforation, obstruction or other acute complication demonstrated. Harris Evans MD Abdomen X-Ray 10/03/16 0000 Signed Impressions: Service Date/Time: September 17:47 - CONCLUSION: Nonspecific and nonobstructive bowel gas pattern. No evidence of free air. Harris Evans MD PE at Discharge GENERAL: Well-developed, well-nourished in no distress Skin: No rash dry HEAD: Atraumatic. Normocephalic. EYES: Pupils equal and round. No scleral icterus. No injection or drainage. ENT: No nasal bleeding or discharge. Mucous membranes pink and moist. NECK: Trachea midline. JVD noted. CARDIOVASCULAR: Regular rate and rhythm. RESPIRATORY: No accessory muscle use. Decreased Breath sounds equal bilaterally. No wheezes GASTROINTESTINAL: Abdomen soft, no tenderness MUSCULOSKELETAL: Extremities without clubbing, cyanosis, or edema. No obvious deformities. NEUROLOGICAL: Awake and alert. No obvious cranial nerve deficits. Motor grossly within normal limits. Five out of 5 muscle strength in the arms and legs. Normal speech. PSYCHIATRIC: Appropriate mood and affect; insight and judgment normal. Hospital Course Colitis with N/V/D Hx of an inflammatory mass in the sigmoid--a gastroscope would not pass this area. Suboptimal CT colonography. Repeat Colonoscopy shows severe colitis affecting transverse and descending colon with smooth stricture affecting r rectosigmoid no obstruction. - Continue mesalamine consider Entocort or Uceris - Continue by mouth Flagyl - Morphine 2 mg IV q3h PRN pain - Zofran 4 mg IV q6h PRN nausea/vomiting - Stool studies negative so far including C. difficile. Continue Lactinex and Lomotil Respiratory distress secondary to COPD exacerbation suspect systolic and diastolic heart failure exacerbation. Repeat chest x-ray negative. Improved with nebulizations, IV steroids and Lasix. Oxygen to keep saturation 92% and scheduled nebulizations We'll closely monitor Syncope likely secondary to dehydration. She is not orthostatic. EKG sinus rhythm. Compared to previous EKG T inversions resolved. Continue telemetry monitoring. Fall precautions Hypokalemia secondary to above. Improved with replacement Escherichia coli UTI. S/p Zosyn after 3 days of treatment Leukocytosis likely secondary to steroid. Clinically she is improved Hyperglycemia. Obtain A1c Chronic medical conditions of congestive heart failure and hypertension. Monitor for fluid overload discontinue IV fluids DVT prophylaxis - SCDs/TEDs. Early ambulation Pt Condition on Discharge: Stable Discharge Disposition: Discharge Home Discharge Time: > 30 minutes Discharge Instructions DIET: Follow Instructions for: Heart Healthy Diet Activities you can perform: Regular-No Restrictions Activities to Avoid: Driving Follow up Referrals: Colorectal Surgery - 1 Week Gastroenterology - 1 Week PCP Follow-up - 2-3 Days New Medications: Hydrocodone-Acetaminophen (Hydrocodone-Acetaminophen) 5-325 mg Tab 1 TAB PO Q6HR PRN pain #28 TAB Lactobacillus Acidophilus (Acidophilus/l-Sporogenes) 1 Tab Tab 1 TAB PO TID Bowel Management #[address] (Mesalamine DR) 800 Mg Tab 1600 MG PO Q8HR Bowel Management #90 TAB Metronidazole (Flagyl) 500 Mg Tab 500 MG PO Q8HR Infection #52 TAB Continued Medications: Albuterol 18 GM Inh (Ventolin Hfa 18 GM Inh) 90 Mcg/Act Aer 2 PUFF INH Q6H PRN SHORTNESS OF BREATH #1 Ref [address] (Aspirin Adult Low Strength) 81 Mg Tabdr 81 MG PO DAILY TAB Atorvastatin (Atorvastatin) 40 Mg Tab 40 MG PO HS Cholesterol Management #30 Ref 0 TAB Budesonide-Formoterol Inh (Symbicort Inh) 160-4.5 Mcg/Act Aero 2 PUFF INH Q12HR #1 Ref 0 INHALER Carvedilol (Coreg) 12.5 Mg Tab 12.5 MG PO DAILY #60 Ref 0 TAB Fluticasone Nasal [place] (Flonase Nasal [place]) 50 Mcg/Act [place] 2 SPR EACH NARE DAILY PRN ALLERGIES #1 Ref 0 BOTTLE Ipratropium-Albuterol Neb (Duoneb) 0.5-2.5 Mg/3 Ml Neb 3 ML NEB QID PRN SHORTNESS OF BREATH #30 Ref 0 NEBULE Additional Information I spent 35 minutes [id number] with the patient or on the gill discussing the patient's disposition, prognosis, and plan of care with patient's caregivers. Over half the time spent was devoted to counseling the patient regarding placement in coordinating care with caregivers and case management. Jeremy Aldana MD Oct 10, 2016 07:46
== END 2016-10-09 19:38 | disposition home or self-care (01) | DRG 391 ==
LOC: NEPC 15:31 → NEDA 20:20 → N05B 23:55
PROVIDERS: ADMIT Internal Medicine; ATTEND Internal Medicine
PROC: 0DBL8ZX Excision of Transverse Colon, Via Natural or Artificial Opening Endoscopic, Diagnostic (ICD-10-PCS; 2016-10-08)
PROC: 0DBM8ZX Excision of Descending Colon, Via Natural or Artificial Opening Endoscopic, Diagnostic (ICD-10-PCS; 2016-10-08)
PROC: 0DBK8ZX Excision of Ascending Colon, Via Natural or Artificial Opening Endoscopic, Diagnostic (ICD-10-PCS; principal; 2016-10-08 15:30)
DX: K52.9 Noninfective gastroenteritis and colitis, unspecified (principal); I50.43 Acute on chronic combined systolic (congestive) and diastolic (congestive) heart failure; K56.69 Other intestinal obstruction; J44.1 Chronic obstructive pulmonary disease with (acute) exacerbation; N39.0 Urinary tract infection, site not specified; I50.9 Heart failure, unspecified; I11.0 Hypertensive heart disease with heart failure; K44.9 Diaphragmatic hernia without obstruction or gangrene; K21.9 Gastro-esophageal reflux disease without esophagitis; F32.9 Major depressive disorder, single episode, unspecified; M19.90 Unspecified osteoarthritis, unspecified site; R55 Syncope and collapse; R73.9 Hyperglycemia, unspecified; B96.20 Unspecified Escherichia coli [E. coli] as the cause of diseases classified elsewhere; I70.0 Atherosclerosis of aorta; E86.0 Dehydration; E87.6 Hypokalemia; Z79.82 Long term (current) use of aspirin; Z87.891 Personal history of nicotine dependence
CPT/HCPCS: 71010; 74000; 74177; 74270; 76937; 80048; 80053; 81001; 83036; 83605; 83690; 83735; 85007; 85025; 85027; 85652; 87077; 87086; 87186; 87205; 87329; 87425; 87493; 87506; 88305; 93005; 94640; 94664; 96361; 96374; 96375; J1940; J2270; J2405; J2543; J2920; J3480; J7030; Q9963; Q9967

== ENCOUNTER 2016-10-25 18:00 | Inpatient (IN) | payer OTHER, MEDICARE ==
[~2016-10-25] VITALS: Ht 157.5 cm; Wt 62.4 kg
[~2016-10-25 18:00] MED LIST changes: -ALBU8I INH; +ASPI1TAB91 PO; +ATOR40TA16 PO; -ATOR40TA49 PO; +CARV12.5 PO; -CARV6.25 PO; -DUONI NEB; -ECOT81TA2 PO; +FLUT1SPR5 EACH NARE; -FURO1TAB93 PO; +HYDR-3516 PO; +IPRASOL NEB; +LACT PO; -LEVA500T PO; -LISI10 PO; -LORTA5 PO; +MESA1TAB2 PO; +METR-1 PO; -NEBUMIS6 INH; -PRED20 PO; -SPIR25 PO; +VENTAER INH; -Z.0.OXYGENDME FM
[2016-10-25 18:12] VITALS: BP 135/96; PULSE 110; RESP 39; TEMP 98.2; O2SAT 100
[2016-10-25] MEDS ORDERED: SODIUM CHLOR 0.9% 250 ML INJ 250 ML IV ONE (18:15)
[2016-10-25] MEDS ORDERED: SODIUM CHLORIDE 0.9% FLUSH 10 ML FLUSH IVF PRN (18:15)
[2016-10-25 18:16] VITALS: O2SAT 100
[2016-10-25 18:33] LABS: BLOOD GAS BASE EXCESS 1.5 mmol/L (-2-2); BLOOD GAS CARBOXYHEMOGLOBIN 0.9 % (0-4); BLOOD GAS HCO3 24 mmol/L (22-26); BLOOD GAS METHEMOGLOBIN 0.7 % (0-2); BLOOD GAS O2 HGB SATURATION 97 % (90-100); BLOOD GAS OXYGEN CONTENT 15.1 Vol % (12.0-20.0); BLOOD GAS PCO2 29 mmHg (38-42); BLOOD GAS PO2 134 mmHG (61-120); BLOOD GAS TOTAL HGB 10.8 G/DL (12.0-16.0); CRITICAL VALUE YES; DRAW SITE LT RADIAL; LITER FLOW 3 L/M; NUMBER OF ARTERIAL PUNCTURES 1; OXYGEN DEVICE NASAL CANNULA; STAT YES; TEMP CORR TO 98.6; ULNAR PULSE Y
--- NOTE | 2016-10-25 18:44 | RADRPT ---
EXAM DATE/TIME: 10/25/2016 18:09 [facility] COMPARISON: CHEST SINGLE AP, October 06, 2016, 12:13. INDICATIONS : Short of breath. MEDICAL HISTORY : Arthritis. SURGICAL HISTORY : Tonsillectomy. Hysterectomy. Cholecystectomy. ENCOUNTER: [facility] ACUITY: 1 day PAIN SCORE: Non-responsive. LOCATION: Bilateral chest FINDINGS: A single view of the chest demonstrates the lungs to be hyperinflated without evidence of mass, infil trate or effusion. The cardiomediastinal contours are unremarkable. Localized eventration is noted on the right. Osseous structures are intact. CONCLUSION: Hyperinflation otherwise negative. Hakan Esparza MD FACR on October 25, 2016 at 18:42 Board Certified Radiologist. This report was verified electronically.
--- NOTE | 2016-10-25 19:23 | PD ---
HPI Chief Complaint: Respiratory Distress Time Seen by Provider: 19:18 Travel History International Travel<30 days: No Contact w/Intl Traveler<30days: No Traveled to known affect area: No History of Present Illness HPI 71-year-old female with history of CHF, COPD, recent colitis, who presents here with platelets of shortness of breath and rectal bleeding. The patient reportedly had a colonoscopy and GI procedure done 2 weeks ago. When she arrived home, she states that she started having GI bleeds. She denies any chest pain, chest pressure. She does report progressively worse shortness of breath. PFSH Past Medical History Arthritis: Yes Depression: Yes Cancer: No Cardiovascular Problems: Yes (chf, htn) COPD: Yes Diminished Hearing: No Endocrine: No Genitourinary: No Hypertension: Yes Immune Disorder: No Musculoskeletal: Yes Neurologic: No Psychiatric: Yes Reproductive: No Respiratory: Yes (copd, emphysema) Immunizations Current: Yes Tetanus Vaccination: Unknown ?: Not Menopausal: Yes Past Surgical History Cholecystectomy: Yes Gynecologic Surgery: Yes (hysterectomy) Hysterectomy: Yes Oral Surgery: Yes (tonsilectomy) Tonsillectomy: Yes Other Surgery: Yes Social History Alcohol Use: No Tobacco Use: No (QUIT 2014) Substance Use: No Allergies-Medications (Allergen,Severity, Reaction): Coded Allergies: No Known Allergies (Unverified , 10/25/16) Reported Meds & Prescriptions Reported Meds & Active Scripts Active Flagyl (Metronidazole) 500 Mg Tab 500 Mg PO Q8HR Mesalamine DR (Mesalamine) 800 Mg Tab 1,600 Mg PO Q8HR Acidophilus/l-Sporogenes (Lactobacillus Acidophilus) 1 Tab Tab 1 Tab PO TID Hydrocodone-Acetaminophen 5-325 mg Tab 1 Tab PO Q6HR PRN Reported Flonase Nasal [place] (Fluticasone Nasal [place]) 50 Mcg/Act [place] 2 Spr EACH NARE DAILY PRN Atorvastatin (Atorvastatin Calcium) 40 Mg Tab 40 Mg PO HS Aspirin Adult Low Strength (Aspirin) 81 Mg Tabdr 81 Mg PO DAILY Coreg (Carvedilol) 12.5 Mg Tab 12.5 Mg PO DAILY Duoneb (Ipratropium-Albuterol Neb) 0.5-2.5 Mg/3 Ml Neb 3 Ml NEB QID PRN Ventolin Hfa 18 GM Inh (Albuterol Sulfate) 90 Mcg/Act Aer 2 Puff INH Q6H PRN Symbicort Inh (Budesonide/Formoterol Fumarate) 160-4.5 Mcg/Act Aero 2 Puff INH Q12HR Review of Systems Except as stated in HPI: all other systems reviewed are Neg General / Constitutional: No: Fever HENT: Positive: Lightheadedness, No: Headaches, Neck Pain Cardiovascular: No: Chest Pain or Discomfort, Palpitations Respiratory: Positive: Shortness of Breath, No: Cough Gastrointestinal: Positive: Diarrhea, Abdominal Pain (lower crampy), Hematochezia, No: Nausea, Vomiting Genitourinary: No: Dysuria, Incontinence Musculoskeletal: Positive: Weakness (generalized), No: Pain Neurologic: Positive: Weakness (generalized), Dizziness, No: Focal Abnormalities, Headache Physical Exam Narrative GENERAL: Elderly thin ill appearing female in respiratory distress. SKIN: Focused skin assessment warm/dry. HEAD: Atraumatic. Normocephalic. EYES: No scleral icterus. No injection or drainage. ENT: No nasal bleeding or discharge. Mucous membranes pale and moist NECK: Trachea midline. Supple. CARDIOVASCULAR: Tachycardic with normal rhythm No murmur appreciated. RESPIRATORY: Tachypnea with mild accessory muscle use. No Rales appreciated. GASTROINTESTINAL: Abdomen soft, non-tender, nondistended. RECTAL EXAM: In the presence of the nurse. No masses or tenderness, stool is red maroon color. Heme positive. MUSCULOSKELETAL: No obvious deformities. No clubbing. No cyanosis. No edema. NEUROLOGICAL: Awake and to. No obvious cranial nerve deficits. Motor grossly within normal limits. Fragmented speech. Data Data Last Documented VS Vital Signs Date Time Temp Pulse Resp B/P Pulse Ox O2 Delivery O2 Flow Rate FiO2 10/25/16 18:16 100 Nasal Cannula 3 10/25/16 18:12 98.2 110 39 135/96 Orders Complete Blood Count With Diff (10/25/16 18:07) Comprehensive Metabolic Panel (10/25/16 18:07) B-Type Natriuretic Peptide (10/25/16 18:07) Act Partial Throm Time (Ptt) (10/25/16 18:07) Prothrombin Time / Inr (Pt) (10/25/16 18:07) Ckmb (Isoenzyme) Profile (10/25/16 18:07) Troponin I (10/25/16 18:07) Arterial Blood Gas (Abg) (10/25/16 18:07) Urinalysis - C+S If Indicated (10/25/16 18:07) Blood Culture (10/25/16 18:07) Iv Access Insert/Monitor (10/25/16 18:07) Electrocardiogram (10/25/16 18:07) Ecg Monitoring (10/25/16 18:07) Oximetry (10/25/16 18:) Oxygen Administration (10/25/16 18:) Chest, Single Ap (10/25/16 18:) Sodium Chloride 0.9% Flush (Ns Flush) (10/25/16 18:15) Type And Screen (10/25/16 18:) Red Blood Cells (Rbc) (10/25/16 18:) Sodium Chlor 0.9% 250 Ml Inj (Ns 250 Ml (10/25/16 18:15) Labs Laboratory Tests Test 10/25/16 18:30 Blood Gas Puncture Site LT RADIAL Blood Gas Patient Temperature 98.6 Blood Gas HCO3 24 mmol/L Blood Gas Base Excess 1.5 mmol/L Blood Gas Oxygen Saturation 97 % Arterial Blood pH 7.53 Arterial Blood Partial 29 mmHg Pressure CO2 Arterial Blood Partial 134 mmHG Pressure O2 Arterial Blood Oxygen Content 15.1 Vol % Arterial Blood 0.9 % Carboxyhemoglobin Arterial Blood Methemoglobin 0.7 % Blood Gas Hemoglobin 10.8 G/DL Oxygen Delivery Device NASAL CANNULA Blood Gas Liter Flow 3 L/M MDM Medical Decision Making Medical Screen Exam Complete: Yes Emergency Medical Condition: Yes Differential Diagnosis GI bleed versus metabolic derangement versus COPD exacerbation versus CHF exacerbation Narrative Course 71-year-old female who presents with tachypnea and rectal bleeding. The patient has obvious kimber blood coming from her rectum. She is to Neck and has respiratory alkalosis on blood gas. The rest of her labs are pending at this time. She was signed out to Dr. Schrader, physician replacing me at change of shift who will follow up on the rest of her labs and make the appropriate disposition. She will definitely need to be admitted. She has been typed and crossed for 2 units of packed red blood cells. Diagnosis Primary Impression: GI bleed Additional Impressions: Tachypnea Respiratory alkalosis Amanuel Burns MD Oct 25, 2016 19:23
[2016-10-25 19:33] LABS: AUTOMATED NEUTROPHIL # 10.9 TH/MM3 (1.8-7.7); BASOPHIL # 0.1 TH/MM3 (0-0.2); BASOPHIL % 0.4 % (0.0-2.0); EOSINOPHIL # 0.1 TH/MM3 (0-0.4); EOSINOPHIL % 0.6 % (0.0-4.0); HEMATOCRIT 32.7 % (35.0-46.0); HEMO FLAGS DIFF FINAL; LYMPH % 11.4 % (9.0-44.0); LYMPHOCYTE # 1.6 TH/MM3 (1.0-4.8); MEAN CELL VOLUME 80.4 FL (80.0-100.0); MEAN CORPUSCULAR HEMOGLOBIN 26.2 PG (27.0-34.0); MEAN CORPUSCULAR HGB CONC 32.5 % (32.0-36.0); MONO % 12.3 % (0.0-8.0); NEUT % 75.3 % (16.0-70.0); PLATELET COUNT 328 TH/MM3 (150-450); RED BLOOD COUNT 4.07 MIL/MM3 (4.00-5.30); RED CELL DISTRIBUTION WIDTH 14.6 % (11.6-17.2); WHITE BLOOD COUNT 14.4 TH/MM3 (4.0-11.0)
[2016-10-25 19:43] LABS: APTT (PATIENT) 28.1 SEC (24.3-30.1); INTERNATIONAL NORMALIZED RATIO 1.1 RATIO; PROTHROMBIN TIME - PATIENT 12.1 SEC (9.8-11.6)
[2016-10-25 19:57] LABS: ANION GAP 11 MEQ/L (5-15); AST (GOT) 23 U/L (15-37); BICARBONATE 23.9 MEQ/L (21.0-32.0); BLOOD UREA NITROGEN 13 MG/DL (7-18); CHLORIDE 98 MEQ/L (98-107); GLOMERULAR FILTRATION RATE 112 ML/MIN (>89); POTASSIUM 3.5 MEQ/L (3.5-5.1); SODIUM (NA) 133 MEQ/L (136-145)
[2016-10-25 20:02] LABS: ALKALINE PHOSPHATASE 62 U/L (45-117); ALT (GPT) 11 U/L (10-53); TOTAL BILIRUBIN ADULT 0.3 MG/DL (0.2-1.0)
[2016-10-25 20:09] LABS: CREATINE KINASE 38 U/L (26-192)
[2016-10-25] MEDS ORDERED: IOHEXOL 350 MG/ML 10 ML VIAL (for RAD DIAG) IV ONE (21:41)
[2016-10-25] MEDS ORDERED: RESP: ALBUTEROL 2.5 MG/IPRATROPIUM 0.5 MG NEB (SCH) NEB ONE (21:45)
[2016-10-25] MEDS ORDERED: methylPREDNISolone SOD SUCC 125 MG/2 ML VIAL IV PUSH ONE (21:45)
[2016-10-25 21:50] VITALS: O2SAT 100
--- NOTE | 2016-10-25 21:57 | RADRPT ---
EXAM DATE/TIME: 10/25/2016 21:39 [facility] COMPARISON: CT PULMONARY ANGIOGRAM, April 09, 2015, 0:49. INDICATIONS : Short of breath and tachycardic. IV CONTRAST: 75 cc Omnipaque 350 (iohexol) IV RADIATION DOSE: 23.41 CTDIvol (mGy) MEDICAL HISTORY : Cardiovascular disease. Hypertension. SURGICAL HISTORY : Appendectomy. Cholecystectomy.Hysterectomy.Hernia repair. ENCOUNTER: Initial ACUITY: 1 day PAIN SCALE: 0/10 LOCATION: chest TECHNIQUE: Volumetric scanning of the chest was performed using a pulmonary embolism protocol MIP images were reconstructed. Using automated exposure control and adjustment of the mA and/or kV acco rding to patient size, radiation dose was kept as low as reasonably achievable to obtain optimal diag nostic quality images. DICOM format image data is available electronically for review and compariso n. FINDINGS: Moderate emphysematous changes are present. There are no suspicious lung nodules identified. There is no axillary or mediastinal adenopathy The pulmonary arteries are prominent centrally suggesting pulmonary hypertension. There is no eviden ce for pulmonary emboli. The portion of the liver and spleen identified are free of focal defects. CONCLUSION: Negative for central pulmonary emboli with marked hyperinflation Hakan Esparza MD FACR on October 25, 2016 at 21:54 Board Certified Radiologist. This report was verified electronically.
--- NOTE | 2016-10-25 22:25 | HHI.HP ---
HPI Service Critical Care Medicine Primary Care Physician Steff Watkins MD Admission Diagnosis SOB, NSTEMI Diagnosis: Chief Complaint: SOB Travel History International Travel<30 Days: No Contact w/Intl Traveler <30 Da: No Traveled to Known Affected Are: No History of Present Illness 71 y/o woman arrived to ED with c/o rectal bleeding X two weeks following a colonoscopy. No fever chills, lightheadedness. Trop elevated and EKG with ischemia. Review of Systems ROS SOB Past Family Social History Allergies: Coded Allergies: No Known Allergies (Unverified , 10/25/16) Past Medical History Past Medical History Arthritis: Yes Depression: Yes Cancer: No Cardiovascular Problems: Yes (chf, htn) COPD: Yes Diminished Hearing: No Endocrine: No Genitourinary: No Hypertension: Yes Immune Disorder: No Musculoskeletal: Yes Neurologic: No Psychiatric: Yes Reproductive: No Respiratory: Yes (copd, emphysema) Immunizations Current: Yes Tetanus Vaccination: Unknown ?: Not Menopausal: Yes Past Surgical History Cholecystectomy: Yes Gynecologic Surgery: Yes (hysterectomy) Hysterectomy: Yes Oral Surgery: Yes (tonsilectomy) Tonsillectomy: Yes Other Surgery: Yes Social History Alcohol Use: No Tobacco Use: No (QUIT 2014) Substance Use: No Allergies-Medications Allergies-Medications (Allergen,Severity, Reaction): Coded Allergies: No Known Allergies (Unverified , 10/25/16) Reported Meds & Prescriptions Reported Meds & Active Scripts Active Flagyl (Metronidazole) 500 Mg Tab 500 Mg PO Q8HR Mesalamine DR (Mesalamine) 800 Mg Tab 1,600 Mg PO Q8HR Acidophilus/l-Sporogenes (Lactobacillus Acidophilus) 1 Tab Tab 1 Tab PO TID Hydrocodone-Acetaminophen 5-325 mg Tab 1 Tab PO Q6HR PRN Reported Flonase Nasal Josephine (Fluticasone Nasal Josephine) 50 Mcg/Act Josephine 2 Spr EACH NARE DAILY PRN Atorvastatin (Atorvastatin Calcium) 40 Mg Tab 40 Mg PO HS Aspirin Adult Low Strength (Aspirin) 81 Mg Tabdr 81 Mg PO DAILY Coreg (Carvedilol) 12.5 Mg Tab 12.5 Mg PO DAILY Duoneb (Ipratropium-Albuterol Neb) 0.5-2.5 Mg/3 Ml Neb 3 Ml NEB QID PRN Ventolin Hfa 18 GM Inh (Albuterol Sulfate) 90 Mcg/Act Aer 2 Puff INH Q6H PRN Symbicort Inh (Budesonide/Formoterol Fumarate) 160-4.5 Mcg/Act Aero 2 Puff INH Q12HR Physical Exam Vital Signs Vital Signs Date Time Temp Pulse Resp B/P Pulse Ox O2 Delivery O2 Flow Rate FiO2 10/25/16 21:50 100 Nasal Cannula 2.00 10/25/16 18:16 100 Nasal Cannula 3 10/25/16 18:16 100 10/25/16 18:12 98.2 110 39 135/96 100 Nasal Cannula 3 Physical Exam Gen: Anxious. Head: Normal. Neck: Supple, no airway obstruction. Lungs: Poor air movement, light wheezes. Heart: Distant tones, NL S1S2, no JVD. Abdomen: Soft, NT, ND, bs active. Extremities: Warm, well perfused. Neuro: Anxious, moves 4 limbs, follows commands. O X 3. Laboratory Laboratory Tests Test 10/25/16 10/25/16 18:20 18:30 White Blood Count 14.4 Red Blood Count 4.07 Hemoglobin 10.7 Hematocrit 32.7 Mean Corpuscular Volume 80.4 Mean Corpuscular Hemoglobin 26.2 Mean Corpuscular Hemoglobin 32.5 Concent Red Cell Distribution Width 14.6 Platelet Count 328 Mean Platelet Volume 8.6 Neutrophils (%) (Auto) 75.3 Lymphocytes (%) (Auto) 11.4 Monocytes (%) (Auto) 12.3 Eosinophils (%) (Auto) 0.6 Basophils (%) (Auto) 0.4 Neutrophils # (Auto) 10.9 Lymphocytes # (Auto) 1.6 Monocytes # (Auto) 1.8 Eosinophils # (Auto) 0.1 Basophils # (Auto) 0.1 CBC Comment DIFF FINAL Differential Comment Prothrombin Time 12.1 Prothromb Time International 1.1 Ratio Activated Partial 28.1 Thromboplast Time Sodium Level 133 Potassium Level 3.5 Chloride Level 98 Carbon Dioxide Level 23.9 Anion Gap 11 Blood Urea Nitrogen 13 Creatinine 0.54 Estimat Glomerular Filtration 112 Rate Random Glucose 99 Calcium Level 8.3 Total Bilirubin 0.3 Aspartate Amino Transf 23 (AST/SGOT) Alanine Aminotransferase 11 (ALT/SGPT) Alkaline Phosphatase 62 Total Creatine Kinase 38 Troponin I 2.95 B-Type Natriuretic Peptide 666 Total Protein 6.3 Albumin 1.9 Blood Type A NEGATIVE Antibody Screen NEGATIVE Crossmatch Leukocyte-Reduced Red Blood Cells Blood Bank Comment Blood Gas Puncture Site LT RADIAL Blood Gas Patient Temperature 98.6 Blood Gas HCO3 24 Blood Gas Base Excess 1.5 Blood Gas Oxygen Saturation 97 Arterial Blood pH 7.53 Arterial Blood Partial 29 Pressure CO2 Arterial Blood Partial 134 Pressure O2 Arterial Blood Oxygen Content 15.1 Arterial Blood 0.9 Carboxyhemoglobin Arterial Blood Methemoglobin 0.7 Blood Gas Hemoglobin 10.8 Oxygen Delivery Device NASAL CANNULA Blood Gas Liter Flow 3 Date/Time Procedure Status Source Growth 10/25/16 18:25 Aerobic Blood Culture Received Blood Peripheral Pending 10/25/16 18:25 Anaerobic Blood Culture Received Blood Peripheral Pending Result Diagram: 10/25/16181910/25/161819 Assessment and Plan Assessment and Plan Assessment: 1. Hypoxemia. 2. SOB. 3. COPD exacerbation 4. NSTEMI 5. Chronic rectal bleeding. Plan: 1. Admit IMC. 2. Lopressor 12.5 bid. 3. ASA. 4. Serial Hgb. 5. Serial Trop. 6. No heparin. Overall impression: Presents with recent lower GI bleed following colonoscopy, SOB, and NSTEMI. She is now asymptomatic but very anxious. Air movement has improved> I will try to start low dose beta crhis and asa, follow trop. Critical care 38 mins Amanuel Muñoz MD Oct 25, 2016 22:25
[2016-10-25] MEDS ORDERED: RESP: ALBUTEROL 2.5 MG/IPRATROPIUM 0.5 MG NEB (PRN) INH (22:30)
[2016-10-25] MEDS ORDERED: SENNOSIDES 8.6 MG TAB PO PRN (22:30)
[2016-10-25] MEDS ORDERED: CHLORHEXIDINE GLUCONATE 2 % 1 PACK (2 CLOTHS) TOP PRN (22:30)
[2016-10-25] MEDS ORDERED: MAGNESIUM HYDROXIDE SUSP 30 ML CUP PO PRN (22:30)
[2016-10-25] MEDS ORDERED: BISACODYL 10 MG SUPP RECTAL PRN (22:30)
[2016-10-25] MEDS ORDERED: LACTULOSE SYRUP 20 GM/30 ML CUP PO PRN (22:30)
[2016-10-25] MEDS ORDERED: MISCELLANEOUS NURSING INFORMATION XX SCH (22:30)
[2016-10-25] MEDS: ENOXAPARIN SODIUM 40 MG/0.4 ML SYRINGE SQ SCH (23:00)
[2016-10-25] MEDS: RESP: ALBUTEROL 2.5 MG/IPRATROPIUM 0.5 MG NEB (SCH) INH (23:00)
[2016-10-25] MEDS: SODIUM CHLOR 0.9% 1000 ML INJ 1,000 ML IV SCH (23:16)
[2016-10-26] VITALS (25 sets, daily range): BP systolic 104–145; BP diastolic 49–71; PULSE 75–109; RESP 22–40; TEMP 97.4–99; O2SAT 99–100
[2016-10-26] MEDS: methylPREDNISolone SOD SUCC 125 MG/2 ML VIAL IV PUSH SCH ×3 (00:53→11:46)
[2016-10-26] MEDS: MORPHINE SULFATE 4 MG/ML INJ IV PRN ×2 (01:49→11:48)
[2016-10-26] MEDS: CHLORHEXIDINE GLUCONATE 2 % 1 PACK (2 CLOTHS) TOP SCH (04:00)
[2016-10-26] MEDS ORDERED: ASPIRIN 81 MG CHEW TAB CHEW ONE (04:15)
[2016-10-26] MEDS: RESP: ALBUTEROL 2.5 MG/IPRATROPIUM 0.5 MG NEB (SCH) INH ×6 (04:24→23:58)
[2016-10-26] MEDS ORDERED: METOPROLOL TARTRATE 25 MG TAB PO SCH ×2 (04:30→06:00)
[2016-10-26 04:37] LABS: AUTOMATED NEUTROPHIL # 6.4 TH/MM3 (1.8-7.7); BASOPHIL % 0.2 % (0.0-2.0); EOSINOPHIL % 0.1 % (0.0-4.0); HEMATOCRIT 30.2 % (35.0-46.0); HEMO FLAGS DIFF FINAL; LYMPH % 9.3 % (9.0-44.0); LYMPHOCYTE # 0.7 TH/MM3 (1.0-4.8); MEAN CORPUSCULAR HEMOGLOBIN 26.4 PG (27.0-34.0); MEAN CORPUSCULAR HGB CONC 32.5 % (32.0-36.0); MONO % 4.3 % (0.0-8.0); NEUT % 86.1 % (16.0-70.0); PLATELET COUNT 303 TH/MM3 (150-450); RED BLOOD COUNT 3.73 MIL/MM3 (4.00-5.30); RED CELL DISTRIBUTION WIDTH 14.3 % (11.6-17.2); WHITE BLOOD COUNT 7.5 TH/MM3 (4.0-11.0)
[2016-10-26 04:44] LABS: BICARBONATE 25.8 MEQ/L (21.0-32.0); MAGNESIUM 1.9 MG/DL (1.5-2.5)
--- NOTE | 2016-10-26 07:24 | PD ---
Physical Exam Narrative Patient signed out to me by Dr. Burns to follow-up labs and disposition the patient. Please see his documentation for complete details. Briefly, patient is a 71-year-old female comes in due to nausea and vomiting as well as rectal bleeding. She has been having rectal bleeding for a while, she had a colonoscopy done a few weeks ago, that showed severe colitis. She has shortness of breath, but per her son she's been short of breath for the past year. She denies any chest pain. She denies any fever or chills. On exam, patient is tachypnea. Abdomen is soft and nontender. Rectal exam performed by Dr. Burns showed blood in the stool. Data Data Last Documented VS Vital Signs Date Time Temp Pulse Resp B/P Pulse Ox O2 Delivery O2 Flow Rate FiO2 10/25/16 21:50 100 Nasal Cannula 2.00 10/25/16 18:12 98.2 110 39 135/96 Orders Complete Blood Count With Diff (10/25/16 18:07) Comprehensive Metabolic Panel (10/25/16 18:07) B-Type Natriuretic Peptide (10/25/16 18:07) Act Partial Throm Time (Ptt) (10/25/16 18:07) Prothrombin Time / Inr (Pt) (10/25/16 18:07) Ckmb (Isoenzyme) Profile (10/25/16 18:07) Troponin I (10/25/16 18:07) Arterial Blood Gas (Abg) (10/25/16 18:07) Urinalysis - C+S If Indicated (10/25/16 18:07) Blood Culture (10/25/16 18:07) Iv Access Insert/Monitor (10/25/16 18:07) Electrocardiogram (10/25/16 18:07) Ecg Monitoring (10/25/16 18:07) Oximetry (10/25/16 18:07) Oxygen Administration (10/25/16 18:07) Chest, Single Ap (10/25/16 18:07) Sodium Chloride 0.9% Flush (Ns Flush) (10/25/16 18:15) Type And Screen (10/25/16 18:07) Red Blood Cells (Rbc) (10/25/16 18:07) Sodium Chlor 0.9% 250 Ml Inj (Ns 250 Ml (10/25/16 18:15) Ct Pulmonary Angiogram (10/25/16 20:50) Electrocardiogram (10/25/16 20:25) Albuterol-Ipratropium Neb (Duoneb Neb) (10/25/16 21:45) Methylprednisolone So Succ Inj (Solumedr (10/25/16 21:45) Iohexol 350 Inj (Omnipaque 350 Inj) (10/25/16 21:41) Atorvastatin (Lipitor) (10/26/16 21:00) Carvedilol (Coreg) (10/26/16 09:00) Admit To Inpatient (10/25/16 ) Code Status (10/25/16 22:20) Vital Signs (Adult) MAYA.Q1H (10/25/16 22:20) Activity Bed Rest (10/25/16 22:20) Elevate Head Of Bed (10/25/16 22:20) Intake + Output Q1H (10/25/16 22:20) Diet Npo (10/26/16 Breakfast) Sodium Chlor 0.9% 1000 Ml Inj (Ns 1000 M (10/25/16 22:20) Acetaminophen (Tylenol) (10/25/16 22:30) Morphine Inj (Morphine Inj) (10/25/16 22:30) Pantoprazole Inj (Protonix Inj) (10/26/16 09:00) Albuterol-Ipratropium Neb (Duoneb Neb) (10/26/16 00:00) Albuterol-Ipratropium Neb (Duoneb Neb) (10/25/16 22:30) Complete Blood Count With Diff (10/26/16 04:00) Basic Metabolic Panel (Bmp) (10/26/16 04:00) Magnesium (Mg) (10/26/16 04:00) Phosphorus (Po4) (10/26/16 04:00) Resp Oxygen Lex C Titrat 1-4 L (10/25/16 ) Custom Tailor / Telemetry MAYA.Q8H (10/25/16 22:20) Enoxaparin Inj (Lovenox Inj) (10/25/16 23:00) ^ Initiate Protocol (10/25/16 22:20) Instruction (10/25/16 22:20) Misc Nursing Information (10/25/16 22:30) Chlorhexidine 2% Cloth (Chlorhexidine 2% (10/26/16 04:00) Chlorhexidine 2% Cloth (Chlorhexidine 2% (10/25/16 22:30) Mrsa Pcr Surveillance (10/25/16 22:20) Docusate Sodium-Senna (Christina-Colace) (10/26/16 09:00) Magnesium Hydroxide Liq (Milk Of Magnesi (10/25/16 22:30) Sennosides (Senokot) (10/25/16 22:30) Bisacodyl Supp (Dulcolax Supp) (10/25/16 22:30) Lactulose Liq (Lactulose Liq) (10/25/16 22:30) Inpatient Certification (10/25/16 ) Levofloxacin 750 Mg Premix Inj (Levaquin (10/25/16 23:00) Methylprednisolone So Succ Inj (Solumedr (10/26/16 00:00) Admit Order (Ed Use Only) (10/25/16 ) Troponin I (10/26/16 04:00) Labs Laboratory Tests Test 10/25/16 10/25/16 18:20 18:30 White Blood Count 14.4 TH/MM3 Red Blood Count 4.07 MIL/MM3 Hemoglobin 10.7 GM/DL Hematocrit 32.7 % Mean Corpuscular Volume 80.4 FL Mean Corpuscular Hemoglobin 26.2 PG Mean Corpuscular Hemoglobin 32.5 % Concent Red Cell Distribution Width 14.6 % Platelet Count 328 TH/MM3 Mean Platelet Volume 8.6 FL Neutrophils (%) (Auto) 75.3 % Lymphocytes (%) (Auto) 11.4 % Monocytes (%) (Auto) 12.3 % Eosinophils (%) (Auto) 0.6 % Basophils (%) (Auto) 0.4 % Neutrophils # (Auto) 10.9 TH/MM3 Lymphocytes # (Auto) 1.6 TH/MM3 Monocytes # (Auto) 1.8 TH/MM3 Eosinophils # (Auto) 0.1 TH/MM3 Basophils # (Auto) 0.1 TH/MM3 CBC Comment DIFF FINAL Differential Comment Prothrombin Time 12.1 SEC Prothromb Time International 1.1 RATIO Ratio Activated Partial 28.1 SEC Thromboplast Time Sodium Level 133 MEQ/L Potassium Level 3.5 MEQ/L Chloride Level 98 MEQ/L Carbon Dioxide Level 23.9 MEQ/L Anion Gap 11 MEQ/L Blood Urea Nitrogen 13 MG/DL Creatinine 0.54 MG/DL Estimat Glomerular Filtration 112 ML/MIN Rate Random Glucose 99 MG/DL Calcium Level 8.3 MG/DL Total Bilirubin 0.3 MG/DL Aspartate Amino Transf 23 U/L (AST/SGOT) Alanine Aminotransferase 11 U/L (ALT/SGPT) Alkaline Phosphatase 62 U/L Total Creatine Kinase 38 U/L Troponin I 2.95 NG/ML B-Type Natriuretic Peptide 666 PG/ML Total Protein 6.3 GM/DL Albumin 1.9 GM/DL Blood Type A NEGATIVE Antibody Screen NEGATIVE Crossmatch Leukocyte-Reduced Red Blood Cells Blood Bank Comment Blood Gas Puncture Site LT RADIAL Blood Gas Patient Temperature 98.6 Blood Gas HCO3 24 mmol/L Blood Gas Base Excess 1.5 mmol/L Blood Gas Oxygen Saturation 97 % Arterial Blood pH 7.53 Arterial Blood Partial 29 mmHg Pressure CO2 Arterial Blood Partial 134 mmHG Pressure O2 Arterial Blood Oxygen Content 15.1 Vol % Arterial Blood 0.9 % Carboxyhemoglobin Arterial Blood Methemoglobin 0.7 % Blood Gas Hemoglobin 10.8 G/DL Oxygen Delivery Device NASAL CANNULA Blood Gas Liter Flow 3 L/M MDM Supervised Visit with YESI: No Narrative Course Patient's labs show an elevated troponin to 2.95. I spoke with Dr. Villalba of cardiology who recommends admission, holding blood thinners at this time due to the rectal bleeding, and trending of troponin. CTA of the chest performed shows no evidence of PE. Patient is given 1 DuoNeb and a dose of Solu-Medrol, with mild improvement of her tachypnea. Patient admitted to the ICU for further management. Diagnosis Primary Impression: NSTEMI (non-ST elevated myocardial infarction) Additional Impression: GI bleed Qualified Code: K92.2 - Gastrointestinal hemorrhage, unspecified gastrointestinal hemorrhage type Admitting Information Admitting Physician Requests: Admit Malaika Schrader MD Oct 26, 2016 07:24
[2016-10-26] MEDS: DOCUSATE SODIUM 50 MG/SENNA 8.6 MG TAB PO SCH ×2 (08:12→21:00)
[2016-10-26] MEDS ORDERED: PNEUMOCOCCAL POLYVALENT INJ 25 MCG/0.5 ML SYR IM ONE (09:00)
[2016-10-26] MEDS ORDERED: CARVEDILOL 12.5 MG TAB PO SCH (09:00)
[2016-10-26] MEDS ORDERED: PANTOPRAZOLE SODIUM 40 MG VIAL IV SCH (09:00)
--- NOTE | 2016-10-26 12:23 | HHI.CCPN ---
Subjective Remarks/Hospital Course 71 y/o woman arrived to ED with c/o rectal bleeding X two weeks following a colonoscopy. No fever chills, lightheadedness. Trop elevated and EKG with ischemia. SUBJ: 10/26: Hb remains stable, no further bleeding reported. Denies chest pain. Troponin down trending. Cardiology and GI consulted Objective Vital Signs Date Time Temp Pulse Resp B/P Pulse Ox O2 Delivery O2 Flow Rate FiO2 10/26/16 11:01 80 27 120/67 100 10/26/16 08:00 97.8 10/26/16 07:24 Nasal Cannula 2.00 Result Diagram: 10/26/16 0327 10/26/16 0327 Other Results Laboratory Tests Test 10/25/16 18:30 Blood Gas Puncture Site LT RADIAL Blood Gas Patient Temperature 98.6 Blood Gas HCO3 24 mmol/L (22-26) Blood Gas Base Excess 1.5 mmol/L (-2-2) Blood Gas Oxygen Saturation 97 % (90-100) Arterial Blood pH 7.53 (7.380-7.420) Arterial Blood Partial 29 mmHg (38-42) Pressure CO2 Arterial Blood Partial 134 mmHG Pressure O2 (61-120) Arterial Blood Oxygen Content 15.1 Vol % (12.0-20.0) Arterial Blood 0.9 % (0-4) Carboxyhemoglobin Arterial Blood Methemoglobin 0.7 % (0-2) Blood Gas Hemoglobin 10.8 G/DL (12.0-16.0) Oxygen Delivery Device NASAL CANNULA Blood Gas Liter Flow 3 L/M Objective Remarks Gen: No acute distress Head: Normal. Neck: Supple, no airway obstruction. Lungs: Mild bilateral wheezes Heart: NL S1S2, no JVD. Abdomen: Soft, NT, ND, bs active. Extremities: Warm, well perfused. Neuro: Alert awake oriented x3 No FND Urinary Catheter: Yes Assessment to: Continue A/P Assessment and Plan Assessment: Respiratory insufficiency with Hypoxemia. NSTEMI COPD exacerbation NSTEMI Chronic rectal bleeding. Plan: 1. Continue ICU care 2. Lopressor 12.5 bid. 3. ASA. 4. Serial Hgb. 2D Echo, cardiology consult 5. Serial Trop, dieudonne trending 6. No heparin. 7. IV Protonix 40 twice a day 8. Cardiac catheterization 04/10/15 - non significant coronary stenosis (Non- ischemic cardiomyopathy) Overall impression: Presents with recent lower GI bleed following colonoscopy, SOB, and NSTEMI. Level 2 Christelle Iglesias MD Oct 26, 2016 12:23
--- NOTE | 2016-10-26 14:53 | MB ---
cc: BONNIE JOSE MD DATE OF CONSULTATION: 10/26/2016. REASON FOR CONSULTATION: Abnormal troponin. HISTORY OF PRESENT ILLNESS: The patient is a pleasant 71-year-old woman who presented with what she describes as significant rectal bleeding. As part of her initial workup, she had a troponin drawn which was abnormal. The patient does have COPD and apparently was supposed to be on oxygen but the patient says she self discontinued the oxygen. Of note, she is quite a poor historian. Currently the patient is asymptomatic. She says she has not had any chest pain but was intermittently short of breath. She has no lightheadedness, dizziness or syncope. PAST MEDICAL HISTORY: 1. Abnormal EKG with deep inverted T-waves. 2. Cardiac catheterization 04/11/2015 showing normal coronaries with ejection fraction of 35% to 40%. 3. COPD. 4. Colitis. 5. Cardiomyopathy. 6. Hyperlipidemia. CURRENT MEDICATIONS: 1. Lipitor 40 milligrams at bedtime. 2. Coreg 4.5 milligrams daily. 3. Lopressor 12.5 milligrams p.o. q.6 h. 4. Levaquin. ALLERGIES: NO KNOWN DRUG ALLERGIES. PHYSICAL EXAMINATION: VITAL SIGNS: Afebrile, pulse 87, respiratory rate 22, blood pressure 115/55, satting 100% on two liters. GENERAL: In general, a pleasant woman in no distress. NECK: No jugular venous distention. LUNGS: Clear to auscultation bilaterally. CARDIOVASCULAR: Regular rate and rhythm. No murmurs appreciated. ABDOMEN: Benign. EXTREMITIES: No edema. LABORATORY DATA: Sodium 134, potassium 4.0, chloride 99, bicarbonate 25.8, BUN 11, creatinine 0.48. Troponin 2.95, 1.6. BNP is 666. EKGS: EKG shows sinus rhythm with diffuse T wave inversion. IMAGING STUDIES: CT angiography was negative but showed marked hyperinflation. IMPRESSION: 1. Abnormal troponin. The patient's abnormal troponin in this particular setting is nonspecific given her history of a cardiac catheterization only year and a half ago showing normal coronaries and the absence of chest pain. Her abnormal EKG is likely due to her left ventricular hypertrophy and cardiomyopathy. I think and other echocardiogram is reasonable but do not believe she requires any further ischemic workup given the relatively recent cardiac catheterization showing the absence of coronary disease. 2. Preoperative evaluation. Should the patient require preoperative evaluation for any GI procedure, I would consider her a moderate risk but I do not believe she requires any further ischemic workup prior to the procedure. Further recommendations based on her clinical course. Thank you again for the opportunity to participate in this patient's care. MD CARMEN Bates/HENRI /10:01 AM /2:47 PM
--- NOTE | 2016-10-26 15:28 | EKG ---
Date Performed: 10/26/2016 Time Performed: 05:57:54 PTAGE: 71 years EKG: Sinus rhythm . Possible LVH with secondary repolarization abnormality Extensive ST-T changes are probably due to v entricular hypertrophy vs ischemia Abnormal ECG Compared to the PREVIOUS TRACING from 10/25/16, T wave changes anteriorly are more noticable, changes may be due to lead placement DOCTOR: Willi Villalba Interpretating Date/Time 10/26/2016 15:27:53
[2016-10-26 16:01] LABS: BLOOD, URINE NEG (NEG); COMMENT (UR) CULT NOT INDICATED; CULTURE IF INDICATED CULT NOT INDICATED; GLUCOSE,URINE NEG (NEG); KETONE, URINE 40 mg/dL (NEG); MUCUS URINE MANY /lpf (OCC); NITRITE,URINE NEG (NEG); PH, URINE 6.5 (5.0-8.5); URINE COLOR YELLOW (YELLW/STRAW)
--- NOTE | 2016-10-26 16:23 | EKG ---
Date Performed: 10/25/2016 Time Performed: 20:25:02 PTAGE: 71 years EKG: SINUS TACHYCARDIA WITH OCCASIONAL SUPRAVENTRICULAR PREMATURE COMPLEXES ST DEVIATION AND MAR KED T-WAVE ABNORMALITY, CONSIDER ANTEROLATERAL ISCHEMIA ST DEVIATION AND MODERATE T-WAVE ABNORMALITY, CONSIDER INFERIOR ISCHEMIA ABNORMAL ECG PREVIOUS TRACING : 10/03/2016 16.13 Compared to prior tracing no significant change DOCTOR: Willi Villalba Interpretating Date/Time 10/26/2016 16:21:52
--- NOTE | 2016-10-26 16:25 | MB ---
cc: CARLOS SNIDER DATE OF CONSULTATION: 10/26/2016. REASON FOR CONSULTATION: Evaluation of rectal bleeding. DATE OF : 1945. HISTORY OF PRESENT ILLNESS: This is a 71-year-old female poor historian who was admitted from the emergency room with complaints of rectal bleeding. She states it has been going on for two weeks. The patient's history is pertinent for the following: She has been followed by Dr. Proctor in our practice. He first saw the patient in June when she presented with rectal bleeding at that time with abdominal discomfort and loose stools. Colonoscopy was attempted in July; however, the patient was found to have a stricture of the descending sigmoid region. She had a Gastrografin enema afterwards which revealed the possibility of colitis in the right and transverse colon with a stricturing of the left colon as mentioned above. There was evidence of colitis at that time. Biopsies apparently were consistent with either an infectious process or inflammatory bowel disease. She was ultimately referred to the colorectal surgeon, Dr. Guillen, who did perform colonoscopy and was able to traverse the stricture and get to the cecum and the patient had moderate to severe right-sided colitis noted and biopsy again suspicious for inflammatory bowel disease. Apparently she was placed on Apriso therapy but did not respond. Her bleeding has persisted. She has been feeling weak and tired. Admission hemoglobin was 10.7. Her last hemoglobin was 9.8. White count 7.5. She was started on IV Solu-Medrol 60 milligrams q.6 h. The patient states that she has no abdominal pain at this time. Her bleeding apparently has subsided somewhat and she feels hungry and wants to eat. PAST MEDICAL HISTORY: 1. She has had a previous cholecystectomy. 2. Hysterectomy. 3. History of hypertension. 4. Congestive heart failure. 5. COPD. ALLERGIES: NO KNOWN ALLERGIES. SOCIAL HISTORY: She denies alcohol use or tobacco use. MEDICATIONS: 1. Flagyl. 2. Mesalamine 800 milligrams, 1600 milligrams p.o. q. 8 hours. 3. Acidophilus. 4. Hydrocodone. 5. Flonase. 6. Pravastatin. 7. Coreg. 8. Ventolin. 9. Symbicort. REVIEW OF SYSTEMS: A twelve-point review of systems is as stated above. LABORATORY STUDIES: Her liver enzymes are in the normal range. Electrolytes are stable. IMAGING STUDIES: She had a CT angiography which was negative for pulmonary emboli. PHYSICAL EXAMINATION: GENERAL: A well-developed female alert and in no acute distress. VITAL SIGNS: Stable. She is afebrile. HEAD, EYES, EARS, NOSE, THROAT: Normocephalic. The sclerae are nonicteric. Oral mucosa dry. NECK: The neck is supple. CARDIAC: S1 and S2. Regular rhythm. CHEST: Clear. ABDOMEN: Generally soft and nontender. Bowel sounds are present. No organomegaly or masses. Surgical scars are well-healed. EXTREMITIES: Without clubbing, cyanosis or edema. IMPRESSION: A 71-year-old female who presents with persistent rectal bleeding and endoscopic evaluation has been performed as mentioned in the history of present illness. She has been found to have significant colitis that appears to be worsened on the right side and she has stricturing of the descending and sigmoid regions as well, probably on the basis of inflammatory response. She has been started on IV Solu-Medrol although the dose needs to be adjusted. I would continue IV Solu-Medrol at a lower dose, perhaps 20 to 40 milligrams q. 12 hours. Will add mesalamine. Follow up the hemoglobin and hematocrit. Hydrate as best as possible. Will advance to a full liquid diet. Will follow with you. If the patient has more significant GI problems, may need to consult colorectal surgery as well who has seen the patient. Thank you kindly for this consult. MD COURTNEY Cam/HENRI /2:23 PM /4:14 PM
--- NOTE | 2016-10-26 16:29 | EKG ---
Date Performed: 10/25/2016 Time Performed: 18:13:34 PTAGE: 71 years EKG: SINUS TACHYCARDIA WITH OCCASIONAL SUPRAVENTRICULAR PREMATURE COMPLEXES POSSIBLE LEFT ATRIAL ENLARGEMENT ST DEVIATION AND MARKED T-WAVE ABNORMALITY, CONSIDER ANTEROLATERAL ISCHEMIA ST DEVIATION AND MODERATE T-WAVE ABNORMALITY, CONSIDER INFERIOR ISCHEMIA ABNORMAL ECG Compared to the PREVIOUS TRACING from 10/03/16, ST/T wave changes are new DOCTOR: Willi Villalba Interpretating Date/Time 10/26/2016 16:28:18
[2016-10-26] MEDS: LEVOFLOXACIN 750 MG PREMIX INJ 150 ML IV SCH ×2 (23:16)
[2016-10-26] MEDS: ATORVASTATIN 40 MG TAB PO SCH (23:17)
[2016-10-26] MEDS: PANTOPRAZOLE SODIUM 40 MG VIAL IV SCH (23:17)
[2016-10-26] MEDS: CARVEDILOL 12.5 MG TAB PO SCH (23:17)
[2016-10-26] MEDS: MESALAMINE HD 800 MG DELAYED RELEASE TAB PO SCH (23:18)
[2016-10-26] MEDS: SODIUM CHLOR 0.9% 1000 ML INJ 1,000 ML IV SCH (23:18)
[2016-10-26] MEDS: methylPREDNISolone SOD SUCC 40 MG/1 ML VIAL IV SCH (23:19)
[2016-10-26] MEDS: ACETAMINOPHEN 325 MG TAB PO PRN (23:19)
[2016-10-26] MEDS: ENOXAPARIN SODIUM 40 MG/0.4 ML SYRINGE SQ SCH (23:19)
[2016-10-27] VITALS (21 sets, daily range): BP systolic 105–153; BP diastolic 52–85; PULSE 65–82; RESP 20–36; TEMP 97.6–98.6; O2SAT 95–100
[2016-10-27] MEDS: RESP: ALBUTEROL 2.5 MG/IPRATROPIUM 0.5 MG NEB (SCH) INH ×4 (03:56→22:42)
[2016-10-27] MEDS: CHLORHEXIDINE GLUCONATE 2 % 1 PACK (2 CLOTHS) TOP SCH (04:00)
[2016-10-27 05:56] LABS: HEMATOCRIT 27.4 % (35.0-46.0)
[2016-10-27] MEDS: MESALAMINE HD 800 MG DELAYED RELEASE TAB PO SCH ×3 (06:38→21:14)
[2016-10-27] MEDS: ACETAMINOPHEN 325 MG TAB PO PRN (06:39)
[2016-10-27] MEDS: CARVEDILOL 12.5 MG TAB PO SCH ×2 (08:48→21:15)
[2016-10-27] MEDS: PANTOPRAZOLE SODIUM 40 MG VIAL IV SCH ×2 (08:48→21:15)
[2016-10-27] MEDS: DOCUSATE SODIUM 50 MG/SENNA 8.6 MG TAB PO SCH ×2 (08:51→21:00)
--- NOTE | 2016-10-27 09:48 | PD.CARD.PN ---
Subjective Subjective Remarks Pt says she feels a bit better, no cp Objective Medications Administered Medications Medications (Trade) Dose Ordered Sig/Elizabeth Route PRN Reason Start Time Stop Time Status Last Admin Dose Admin Atorvastatin Calcium 40 mg 40 mg HS PO 10/26/16 21:00 10/26/16 23:17 Sodium Chloride (NS 1000 ml Inj) 1,000 ml @ 35 mls/hr Q24H IV 10/25/16 22:20 10/26/16 23:18 Acetaminophen (Tylenol) 650 mg Q6H PRN PO PAIN 1-10 AND/OR FEVER >101F 10/25/16 22:30 10/27/16 06:39 Morphine Sulfate (Morphine Inj) 2 mg Q2H PRN IV PAIN SCALE 6 TO 10 10/25/16 22:30 10/26/16 11:48 Enoxaparin Sodium (Lovenox Inj) 40 mg Q24H SQ 10/25/16 23:00 10/26/16 23:19 Chlorhexidine Gluconate (Chlorhexidine 2% Cloth) 3 pack Taper DAILY@04 TOP 10/26/16 04:00 10/22/17 03:59 10/26/16 04:00 Senna/Docusate Sodium 1 tab 1 tab BID PO 10/26/16 09:00 10/26/16 08:12 Levofloxacin/ Dextrose (Levaquin 750 Mg Premix Inj) 150 ml @ 100 mls/hr Q24H IV 10/25/16 23:00 10/26/16 23:16 Carvedilol (Coreg) 12.5 mg BID PO 10/26/16 21:00 10/27/16 08:48 Pantoprazole Sodium (Protonix Inj) 40 mg Q12H IV 10/26/16 21:00 10/27/16 08:48 Mesalamine (Asacol Hd Dr) 1,600 mg Q8HR PO 10/26/16 22:00 10/27/16 06:38 Methylprednisolone Sodium Succinate (SoluMEDROL INJ) 40 mg Q12H IV 10/27/16 00:00 10/26/16 23:19 Vital Signs / I&O Vital Signs Date Time Temp Pulse Resp B/P Pulse Ox O2 Delivery O2 Flow Rate FiO2 10/27/16 07:18 100 Nasal Cannula 2.00 10/27/16 06:00 80 10/27/16 04:00 65 7/9/17 04:00 98.6 65 26 105/54 100 10/27/16 02:00 76 10/27/16 00:00 97.6 75 26 107/57 99 10/27/16 00:00 75 10/26/16 22:00 77 10/26/16 20:00 86 10/26/16 20:00 98.0 86 24 117/56 100 10/26/16 19:47 100 Nasal Cannula 2.00 10/26/16 18:00 96 10/26/16 17:00 86 10/26/16 16:00 81 10/26/16 16:00 81 10/26/16 16:00 81 10/26/16 16:00 81 28 127/60 100 10/26/16 16:00 97.9 10/26/16 15:00 81 10/26/16 15:00 81 10/26/16 15:00 81 10/26/16 14:01 75 10/26/16 14:01 75 10/26/16 14:01 75 10/26/16 14:00 79 10/26/16 14:00 79 10/26/16 14:00 79 10/26/16 13:00 77 10/26/16 13:00 77 10/26/16 12:00 97.4 10/26/16 12:00 82 10/26/16 12:00 82 10/26/16 12:00 82 10/26/16 12:00 82 30 118/57 100 10/26/16 11:01 80 27 120/67 100 10/26/16 11:01 80 10/26/16 11:01 80 10/26/16 11:01 80 10/26/16 10:00 79 10/26/16 10:00 79 10/26/16 10:00 79 10/26/16 10:00 79 27 111/64 100 I/O 10/26/16 10/26/16 10/26/16 10/27/16 10/27/16 10/27/16 07:00 15:00 23:00 07:00 15:00 23:00 Intake Total 372 ml 406 ml 130 ml 537 ml Output Total 450 ml 300 ml Balance 372 ml 406 ml -320 ml 237 ml Intake Oral 100 ml 120 ml 240 ml IV Total 372 ml 306 ml 10 ml 297 ml Output Urine Total 450 ml 300 ml # Bowel Movements 2 1 Physical Exam GENERAL: This is a well-nourished, well-developed patient, in no apparent distress. CARDIOVASCULAR: Regular rate and rhythm without murmurs, gallops, or rubs. RESPIRATORY: Clear to auscultation. Breath sounds equal bilaterally. No wheezes , rales, or rhonchi. GASTROINTESTINAL: Abdomen soft, non-tender, nondistended. Normal active bowel sounds MUSCULOSKELETAL: Extremities without clubbing, cyanosis, or edema. NEURO: Alert & Oriented x4 to person, place, time, situation. Moves all ext x4 Laboratory Laboratory Tests Test 10/26/16 10/27/16 15:06 05:28 Urine Color YELLOW Urine Turbidity CLEAR Urine pH 6.5 Urine Specific [place] GREATER THAN 1.050 Urine Protein 30 mg/dL Urine Glucose (UA) NEG mg/dL Urine Ketones 40 mg/dL Urine Occult Blood NEG Urine Nitrite NEG Urine Bilirubin NEG Urine Urobilinogen LESS THAN 2.0 MG/DL Urine Leukocyte Esterase NEG Urine RBC 2 /hpf Urine WBC 1 /hpf Urine Mucus MANY /lpf Microscopic Urinalysis Comment CULT NOT INDICATED Hemoglobin 9.0 GM/DL Hematocrit 27.4 % Troponin I 0.62 NG/ML Imaging Last Impressions CT Angiography 10/25/162049 Signed Impressions: Service Date/Time: Tuesday, October 25, 2016 21:39 - CONCLUSION: Negative for central pulmonary emboli with marked hyperinflation Hakan Esparza MD FACR Chest X-Ray 10/25/16 1807 Signed Impressions: Service Date/Time: Tuesday, October 25, 2016 18:09 - CONCLUSION: Hyperinflation otherwise negative. Hakan Esparza MD FACR Assessment and Plan Problem List: (1) Troponin level elevated Assessment and Plan: No significant CAD by cath 1.5 years ago; no chest pain, continue medical therapy (2) GI bleed Assessment and Plan: Given relatively recent cath and absence of current cardiac sx, would have her proceed with any urgent GI procedures w/o further cardiac risk stratification. (3) CHF (congestive heart failure) Assessment and Plan: BNP was modestly elevated on admission, will have echo updated, though not clinically in chf. Problem Qualifiers (1) GI bleed: Qualified Code: K92.2 - Gastrointestinal hemorrhage, unspecified gastrointestinal hemorrhage type Ellis Jarvis MD Oct 27, 2016 09:48
--- NOTE | 2016-10-27 09:52 | PD.TRANSFR ---
Transfer Summary Admission Date Oct 25, 2016 at 23:05 Admitting Diagnosis SOB, NSTEMI Diagnoses: (1) GI bleed Diagnosis: Principal (2) NSTEMI (non-ST elevated myocardial infarction) Diagnosis: Principal (3) Acute exacerbation of inflammatory bowel disease Diagnosis: Principal (4) Colitis Diagnosis: Secondary Transfer Summary/Subjective 71 y/o woman arrived to ED with c/o rectal bleeding X two weeks following a colonoscopy. No fever chills, lightheadedness. Trop elevated and EKG with ischemia. 10/27: Patient subjectively feeling better. No further GI bleed. Appreciate consult by GI Dr. Sullivan. As per his notes, colonoscopy was attempted in July; however, the patient was found to have a stricture of the descending sigmoid region. Gastrografin enema revealed the possibility of colitis in the right and transverse colon with a stricturing of the left colon as mentioned above. Biopsies apparently were consistent with either an infectious process or inflammatory bowel disease. She was referred to the colorectal surgeon, Dr. Guillen, who did perform colonoscopy and the patient had moderate to severe right -sided colitis noted and biopsy again suspicious for inflammatory bowel disease. Apparently she was placed on Apriso therapy but did not respond. Infectious workup was apparently negative including a negative C. difficile and Giardia Patient had been placed on IV Solu-Medrol and mesalamine for exacerbation of IBD. Objective Vital Signs Date Time Temp Pulse Resp B/P Pulse Ox O2 Delivery O2 Flow Rate FiO2 10/27/16 07:18 100 Nasal Cannula 2.00 10/27/16 06:00 80 10/27/16 04:00 98.6 26 105/54 Intake and Output 10/26/16 10/26/16 10/27/16 08:00 16:00 00:00 Intake Total 372 ml 406 ml 130 ml Output Total 450 ml Balance 372 ml 406 ml -320 ml Result Diagram: 10/27/16 0528 10/26/16 0327 Objective Remarks Gen: No acute distress Head: Normal. Neck: Supple, no airway obstruction. Lungs: Mild wheezes Heart: NL S1S2, no JVD. Abdomen: Soft, NT, ND, bs active. Extremities: Warm, well perfused. Neuro: Alert awake oriented x3 No FND A/P Assessment and Plan Assessment: Lower GI bleed Acute exacerbation of IBD NSTEMI COPD exacerbation Respiratory insufficiency with Hypoxemia. Chronic rectal bleeding. Plan: 1. Continue IV Solu-Medrol and mesalamine per GI 2. Coreg twice a day, aspirin 3. Cardiology Dr. Reyes gastroenterology Dr. Farah 4. Serial Hgb. 2D Echo-pending 5. Serial Trop, down trending 6. Lovenox 40 mg subcutaneous daily 7. IV Protonix 40 twice a day 8. Cardiac catheterization 04/10/15 - non significant coronary stenosis (Non- ischemic cardiomyopathy) Overall impression: Presents with recent lower GI bleed following colonoscopy, SOB, and NSTEMI. Clinically stable and improving. Transferred to [facility]. Consult hospitalist for medical management, assume see him care in a.m. Level 2 Christelle Iglesias MD Oct 27, 2016 09:52
--- NOTE | 2016-10-27 11:06 | HHI.GIFU ---
Subjective Remarks alert NAD feeling somewhat better today tolerating po well No active bleeding at present Objective Vitals I&O Vital Signs Date Time Temp Pulse Resp B/P Pulse Ox O2 Delivery O2 Flow Rate FiO2 10/27/16 07:18 100 Nasal Cannula 2.00 10/27/16 06:00 80 10/27/16 04:00 65 10/27/16 04:00 98.6 65 26 105/54 100 10/27/16 02:00 76 10/27/16 00:00 97.6 75 26 107/57 99 10/27/16 00:00 75 10/26/16 22:00 77 10/26/16 20:00 86 10/26/16 20:00 98.0 86 24 117/56 100 10/26/16 19:47 100 Nasal Cannula 2.00 10/26/16 18:00 96 10/26/16 17:00 86 10/26/16 16:00 81 10/26/16 16:00 81 10/26/16 16:00 81 10/26/16 16:00 81 28 127/60 100 10/26/16 16:00 97.9 10/26/16 15:00 81 10/26/16 15:00 81 10/26/16 15:00 81 10/26/16 14:01 75 10/26/16 14:01 75 10/26/16 14:01 75 10/26/16 14:00 79 10/26/16 14:00 79 10/26/16 14:00 79 10/26/16 13:00 77 10/26/16 13:00 77 10/26/16 12:00 97.4 10/26/16 12:00 82 10/26/16 12:00 82 10/26/16 12:00 82 10/26/16 12:00 82 30 118/57 100 I/O 10/26/16 10/26/16 10/26/16 10/27/16 10/27/16 10/27/16 07:00 15:00 23:00 07:00 15:00 23:00 Intake Total 372 ml 406 ml 130 ml 537 ml Output Total 450 ml 300 ml Balance 372 ml 406 ml -320 ml 237 ml Intake Oral 100 ml 120 ml 240 ml IV Total 372 ml 306 ml 10 ml 297 ml Output Urine Total 450 ml 300 ml # Bowel Movements 2 1 Laboratory Laboratory Tests Test 7/7/17 7/7/17 7/8/17 7/8/17 18:20 18:30 01:10 03:27 Prothrombin Time 12.1 SEC Prothromb Time International 1.1 RATIO Ratio Activated Partial 28.1 SEC Thromboplast Time Total Bilirubin 0.3 MG/DL Aspartate Amino Transf 23 U/L (AST/SGOT) Alanine Aminotransferase 11 U/L (ALT/SGPT) Alkaline Phosphatase 62 U/L Total Creatine Kinase 38 U/L B-Type Natriuretic Peptide 666 PG/ML Total Protein 6.3 GM/DL Albumin 1.9 GM/DL Blood Type A NEGATIVE Antibody Screen NEGATIVE Crossmatch Leukocyte-Reduced Red Blood Cells Blood Bank Comment Blood Gas Puncture Site LT RADIAL Blood Gas Patient Temperature 98.6 Blood Gas HCO3 24 mmol/L Blood Gas Base Excess 1.5 mmol/L Blood Gas Oxygen Saturation 97 % Arterial Blood pH 7.53 Arterial Blood Partial 29 mmHg Pressure CO2 Arterial Blood Partial 134 mmHG Pressure O2 Arterial Blood Oxygen Content 15.1 Vol % Arterial Blood 0.9 % Carboxyhemoglobin Arterial Blood Methemoglobin 0.7 % Blood Gas Hemoglobin 10.8 G/DL Oxygen Delivery Device NASAL CANNULA Blood Gas Liter Flow 3 L/M Nasal Screen MRSA (PCR) MRSA NOT DETECTED White Blood Count 7.5 TH/MM3 Red Blood Count 3.73 MIL/MM3 Mean Corpuscular Volume 81.0 FL Mean Corpuscular Hemoglobin 26.4 PG Mean Corpuscular Hemoglobin 32.5 % Concent Red Cell Distribution Width 14.3 % Platelet Count 303 TH/MM3 Mean Platelet Volume 8.4 FL Neutrophils (%) (Auto) 86.1 % Lymphocytes (%) (Auto) 9.3 % Monocytes (%) (Auto) 4.3 % Eosinophils (%) (Auto) 0.1 % Basophils (%) (Auto) 0.2 % Neutrophils # (Auto) 6.4 TH/MM3 Lymphocytes # (Auto) 0.7 TH/MM3 Monocytes # (Auto) 0.3 TH/MM3 Eosinophils # (Auto) 0.0 TH/MM3 Basophils # (Auto) 0.0 TH/MM3 CBC Comment DIFF FINAL Differential Comment Sodium Level 134 MEQ/L Potassium Level 4.0 MEQ/L Chloride Level 99 MEQ/L Carbon Dioxide Level 25.8 MEQ/L Anion Gap 9 MEQ/L Blood Urea Nitrogen 11 MG/DL Creatinine 0.48 MG/DL Estimat Glomerular Filtration 128 ML/MIN Rate Random Glucose 133 MG/DL Calcium Level 8.1 MG/DL Phosphorus Level 2.9 MG/DL Magnesium Level 1.9 MG/DL Test 10/26/16 10/27/16 15:06 05:28 Urine Color YELLOW Urine Turbidity CLEAR Urine pH 6.5 Urine Specific [place] GREATER THAN 1.050 Urine Protein 30 mg/dL Urine Glucose (UA) NEG mg/dL Urine Ketones 40 mg/dL Urine Occult Blood NEG Urine Nitrite NEG Urine Bilirubin NEG Urine Urobilinogen LESS THAN 2.0 MG/DL Urine Leukocyte Esterase NEG Urine RBC 2 /hpf Urine WBC 1 /hpf Urine Mucus MANY /lpf Microscopic Urinalysis Comment CULT NOT INDICATED Hemoglobin 9.0 GM/DL Hematocrit 27.4 % Troponin I 0.62 NG/ML Laboratory Tests Test 10/26/16 10/27/16 15:06 05:28 Urine Color YELLOW Urine Turbidity CLEAR Urine pH 6.5 Urine Specific [place] GREATER THAN 1.050 Urine Protein 30 Urine Glucose (UA) NEG Urine Ketones 40 Urine Occult Blood NEG Urine Nitrite NEG Urine Bilirubin NEG Urine Urobilinogen LESS THAN 2.0 Urine Leukocyte Esterase NEG Urine RBC 2 Urine WBC 1 Urine Mucus MANY Microscopic Urinalysis Comment CULT NOT INDICATED Hemoglobin 9.0 Hematocrit 27.4 Troponin I 0.62 Date/Time Procedure Status Source Growth 10/25/16 18:25 Aerobic Blood Culture - Preliminary Resulted Blood Peripheral NO GROWTH IN 1 DAY 10/25/16 18:25 Anaerobic Blood Culture - Preliminary Resulted Blood Peripheral NO GROWTH IN 1 DAY Imaging Last Impressions CT Angiography 10/25/162049 Signed Impressions: Service Date/Time: Tuesday, October 25, 2016 21:39 - CONCLUSION: Negative for central pulmonary emboli with marked hyperinflation Hakan Esparza MD FACR Chest X-Ray 10/25/16 180 Signed Impressions: Service Date/Time: Tuesday, October 25, 2016 18:09 - CONCLUSION: Hyperinflation otherwise negative. Hakan Esparza MD FACR Physical Exam HEENT: Pupils round and reactive to light; normocephalic; atraumatic; no jaundice. Throat is clear. NECK: Neck is supple, no JVD, no lymphadenopathy. CHEST: Chest is clear to auscultation and percussion. CARDIAC: Regular rate and rhythm with no murmur gallop or rubs. ABDOMEN: Soft, nondistended, nontender; no hepatosplenomegaly; bowel sounds are present in all four quadrants. EXTREMITIES: No clubbing, cyanosis, or edema. SKIN: Normal; no rash; no jaundice. Assessment and Plan Assessment: (1) GI bleed (2) Colitis Plan Would continue IV steroids for now and the transition to po prednisone for suspected IBD....continue mesalamine as well... appears stable GI at present Problem Qualifiers (1) GI bleed: Qualified Code: K92.2 - Gastrointestinal hemorrhage, unspecified gastrointestinal hemorrhage type Delmar Sullivan MD Oct 27, 2016 11:06
[2016-10-27] MEDS: methylPREDNISolone SOD SUCC 40 MG/1 ML VIAL IV SCH (12:03)
[2016-10-27 15:22] LABS: C. DIFF EPI 027 PRESUMPTIVE NEGATIVE (NEGATIVE); C. DIFF TOXIN PCR NEGATIVE (NEGATIVE)
--- NOTE | 2016-10-27 15:40 | ECHRPT ---
Indication: Cardiomyopathy, unspecified CONCLUSIONS The left ventricular systolic function is moderately reduced with an estimated ejection fraction in the range of 40-45%. Wall thickness is measured at the upper limits of normal. Normal left ventricular size. There is a small pericardial effusion present without hemodymaic compromise. Technically difficult with most views off-axis; overall impression is of a mildly reduced LVEF near 45%. BP: 105 / 54 HR: 80 Rhythm: Sinus MEASUREMENTS (Male / Female) Normal Values Technical Quality:Difficult 2D ECHO LV Diastolic Diameter PLAX 4.2 cm 4.2 - 5.9 / 3.9 - 5.3 cm LV Systolic Diameter PLAX 3.6 cm IVS Diastolic Thickness 1.1 cm 0.6 - 1.0 / 0.6 - 0.9 cm LVPW Diastolic Thickness 1.0 cm 0.6 - 1.0 / 0.6 - 0.9 cm LV Relative Wall Thickness 0.5 LVOT Diameter 2.0 cm M-MODE Aortic Root Diameter MM 3.0 cm LA Systolic Diameter MM 3.0 cm LA Ao Ratio MM 1.0 AV Cusp Separation MM 1.7 cm DOPPLER AV Peak Velocity 121.0 cm/s AV Peak Gradient 5.9 mmHg LVOT Peak Velocity 111.0 cm/s LVOT Peak Gradient 4.9 mmHg AV Area Cont Eq pk 2.9 cm Mitral E Point Velocity 81.9 cm/s Mitral A Point Velocity 126.0 cm/s Mitral E to A Ratio 0.7 LV E' Lateral Velocity 6.3 cm/s Mitral E to LV E' Lateral Ratio 12.9 LV E' Septal Velocity 5.2 cm/s Mitral E to LV E' Septal Ratio 15.8 FINDINGS LEFT VENTRICLE The left ventricular systolic function is moderately reduced with an estimated ejection fraction in the range of 40-45%. Doppler parameters are consistent with impaired left ventricular relaxtion (grade 1 diastolic dysfun ction). Wall thickness is measured at the upper limits of normal. Normal left ventricular size. There was limited left ventricular wall motion assessment due to poor endocardial visualization. RIGHT VENTRICLE Normal right ventricular size and systolic function. LEFT ATRIUM The left atrial size is normal. RIGHT ATRIUM The right atrial size is normal. ATRIAL SEPTUM Normal atrial septal thickness without atrial level shunting by limited color doppler interrogation. AORTA The aortic root and proximal ascending aorta are normal in size on limited imaging. MITRAL VALVE Structurally normal mitral valve. No mitral valve stenosis or regurgitation. AORTIC VALVE Trileaflet aortic valve. No aortic valve stenosis or regurgitation. TRICUSPID VALVE Structurally normal tricuspid valve. No tricuspid valve stenosis or regurgitation. PULMONARY VALVE The pulmonary valve is not well visualized. VESSELS The inferior vena cava is normal in size. PERICARDIUM There is a small pericardial effusion present. Ellis Jarvis MD (Electronically Signed) Final Date:27 October 2016 15:39
[2016-10-27] MEDS: ATORVASTATIN 40 MG TAB PO SCH (21:14)
[2016-10-27] MEDS: ENOXAPARIN SODIUM 40 MG/0.4 ML SYRINGE SQ SCH (21:15)
[2016-10-28] VITALS (26 sets, daily range): BP systolic 124–144; BP diastolic 58–84; PULSE 59–80; RESP 18–21; TEMP 97.6–98.2; O2SAT 94–100
[2016-10-28] MEDS: CHLORHEXIDINE GLUCONATE 2 % 1 PACK (2 CLOTHS) TOP SCH (04:00)
[2016-10-28] MEDS: MESALAMINE HD 800 MG DELAYED RELEASE TAB PO SCH ×3 (05:28→21:05)
[2016-10-28 06:32] LABS: AUTOMATED NEUTROPHIL # 9.2 TH/MM3 (1.8-7.7); BASOPHIL % 0.1 % (0.0-2.0); HEMATOCRIT 27.9 % (35.0-46.0); HEMO FLAGS DIFF FINAL; LYMPHOCYTE # 1.5 TH/MM3 (1.0-4.8); MEAN CELL VOLUME 80.9 FL (80.0-100.0); MEAN CORPUSCULAR HEMOGLOBIN 26.2 PG (27.0-34.0); MEAN CORPUSCULAR HGB CONC 32.3 % (32.0-36.0); MONO % 9.1 % (0.0-8.0); NEUT % 77.8 % (16.0-70.0); PLATELET COUNT 281 TH/MM3 (150-450); RED BLOOD COUNT 3.45 MIL/MM3 (4.00-5.30); RED CELL DISTRIBUTION WIDTH 14.4 % (11.6-17.2); WHITE BLOOD COUNT 11.8 TH/MM3 (4.0-11.0)
[2016-10-28 07:04] LABS: ANION GAP 7 MEQ/L (5-15); AST (GOT) 12 U/L (15-37); BICARBONATE 27.1 MEQ/L (21.0-32.0); BLOOD UREA NITROGEN 13 MG/DL (7-18); CHLORIDE 100 MEQ/L (98-107); GLOMERULAR FILTRATION RATE 109 ML/MIN (>89); POTASSIUM 3.7 MEQ/L (3.5-5.1); SODIUM (NA) 134 MEQ/L (136-145)
[2016-10-28 07:05] LABS: MAGNESIUM 2.3 MG/DL (1.5-2.5)
[2016-10-28 07:13] LABS: ALKALINE PHOSPHATASE 46 U/L (45-117); ALT (GPT) 10 U/L (10-53); TOTAL BILIRUBIN ADULT 0.2 MG/DL (0.2-1.0)
[2016-10-28] MEDS: RESP: ALBUTEROL 2.5 MG/IPRATROPIUM 0.5 MG NEB (SCH) INH ×2 (08:05→16:00)
[2016-10-28] MEDS: DOCUSATE SODIUM 50 MG/SENNA 8.6 MG TAB PO SCH ×2 (09:00→21:00)
--- NOTE | 2016-10-28 09:22 | PD.CARD.PN ---
Subjective Subjective Remarks No cardiac complaints, now out of the icu Objective Medications Administered Medications Medications (Trade) Dose Ordered Sig/Elizabeth Route PRN Reason Start Time Stop Time Status Last Admin Dose Admin Atorvastatin Calcium (Lipitor) 40 mg HS PO 10/26/16 21:00 10/27/16 21:14 Acetaminophen (Tylenol) 650 mg Q6H PRN PO PAIN 1-10 AND/OR FEVER >101F 10/25/16 22:30 10/27/16 06:39 Morphine Sulfate (Morphine Inj) 2 mg Q2H PRN IV breakthru PAIN 10/25/16 22:30 10/26/16 11:48 Enoxaparin Sodium (Lovenox Inj) 40 mg Q24H SQ 10/25/16 23:00 Hold 10/27/16 21:15 Chlorhexidine Gluconate (Chlorhexidine 2% Cloth) 3 pack Taper DAILY@04 TOP 10/26/16 04:00 10/22/17 03:59 10/26/16 04:00 Senna/Docusate Sodium (Christina-Colace) 1 tab BID PO 10/26/16 09:00 10/26/16 08:12 Carvedilol (Coreg) 12.5 mg BID PO 10/26/16 21:00 10/27/16 21:15 Pantoprazole Sodium (Protonix Inj) 40 mg Q12H IV 10/26/16 21:00 10/27/16 21:15 Mesalamine (Asacol Hd Dr) 1,600 mg Q8HR PO 10/26/16 22:00 10/28/16 05:28 Methylprednisolone Sodium Succinate (SoluMEDROL INJ) 40 mg Q12H IV 10/27/16 00:00 10/28/16 00:00 Vital Signs / I&O Vital Signs Date Time Temp Pulse Resp B/P Pulse Ox O2 Delivery O2 Flow Rate FiO2 10/28/16 08:05 94 Nasal Cannula 1.00 10/28/16 08:00 80 10/28/16 07:00 80 10/28/16 07:00 97.9 80 20 144/82 100 10/28/16 06:00 75 10/28/16 05:00 76 10/28/16 04:00 77 18 141/71 99 10/28/16 04:00 77 10/28/16 03:00 76 10/28/16 02:00 76 10/28/16 01:00 74 10/28/16 00:00 98.1 77 18 137/84 99 10/28/16 00:00 75 10/27/16 23:00 80 10/27/16 22:42 97 Nasal Cannula 3.00 10/27/16 22:00 82 10/27/16 21:00 78 10/27/16 20:00 97.9 76 20 147/72 100 10/27/16 20:00 74 10/27/16 19:00 79 10/27/16 18:11 75 10/27/16 17:00 68 10/27/16 16:00 72 10/27/16 15:21 100 Nasal Cannula 2.00 10/27/16 15:04 98.3 67 20 153/85 98 10/27/16 15:00 72 10/27/16 13:45 79 22 146/77 100 10/27/16 12:00 77 10/27/16 12:00 98.4 77 24 100 10/27/16 10:00 79 I/O 10/27/16 10/27/16 10/27/16 10/28/16 10/28/16 10/28/16 07:00 15:00 23:00 07:00 15:00 23:00 Intake Total 537 ml 480 ml 240 ml Output Total 300 ml 800 ml 650 ml Balance 237 ml -320 ml -410 ml Intake Oral 240 ml 480 ml 240 ml IV Total 297 ml Output Urine Total 300 ml 800 ml 650 ml # Bowel Movements 1 1 4 Physical Exam GENERAL: This is a well-nourished, well-developed patient, in no apparent distress. CARDIOVASCULAR: Regular rate and rhythm without murmurs, gallops, or rubs. RESPIRATORY: Clear to auscultation. Breath sounds equal bilaterally. No wheezes , rales, or rhonchi. GASTROINTESTINAL: Abdomen soft, non-tender, nondistended. Normal active bowel sounds MUSCULOSKELETAL: Extremities without clubbing, cyanosis, or edema. NEURO: Alert & Oriented x4 to person, place, time, situation. Moves all ext x4 Laboratory Laboratory Tests Test 10/27/16 10/28/16 13:05 05:50 Stool C. difficile Toxin (PCR) NEGATIVE Stl C. difficile Toxin PRESUMPTIVE Epiderm 027 NEGATIVE White Blood Count 11.8 TH/MM3 Red Blood Count 3.45 MIL/MM3 Hemoglobin 9.0 GM/DL Hematocrit 27.9 % Mean Corpuscular Volume 80.9 FL Mean Corpuscular Hemoglobin 26.2 PG Mean Corpuscular Hemoglobin 32.3 % Concent Red Cell Distribution Width 14.4 % Platelet Count 281 TH/MM3 Mean Platelet Volume 7.9 FL Neutrophils (%) (Auto) 77.8 % Lymphocytes (%) (Auto) 13.0 % Monocytes (%) (Auto) 9.1 % Eosinophils (%) (Auto) 0.0 % Basophils (%) (Auto) 0.1 % Neutrophils # (Auto) 9.2 TH/MM3 Lymphocytes # (Auto) 1.5 TH/MM3 Monocytes # (Auto) 1.1 TH/MM3 Eosinophils # (Auto) 0.0 TH/MM3 Basophils # (Auto) 0.0 TH/MM3 CBC Comment DIFF FINAL Differential Comment Sodium Level 134 MEQ/L Potassium Level 3.7 MEQ/L Chloride Level 100 MEQ/L Carbon Dioxide Level 27.1 MEQ/L Anion Gap 7 MEQ/L Blood Urea Nitrogen 13 MG/DL Creatinine 0.55 MG/DL Estimat Glomerular Filtration 109 ML/MIN Rate Random Glucose 105 MG/DL Calcium Level 8.2 MG/DL Magnesium Level 2.3 MG/DL Total Bilirubin 0.2 MG/DL Aspartate Amino Transf 12 U/L (AST/SGOT) Alanine Aminotransferase 10 U/L (ALT/SGPT) Alkaline Phosphatase 46 U/L Total Protein 5.5 GM/DL Albumin 1.8 GM/DL Imaging Last Impressions CT Angiography 10/25/162049 Signed Impressions: Service Date/Time: Tuesday, October 25, 2016 21:39 - CONCLUSION: Negative for central pulmonary emboli with marked hyperinflation Hakan Esparza MD FACR Chest X-Ray 10/25/16 180 Signed Impressions: Service Date/Time: Tuesday, October 25, 2016 18:09 - CONCLUSION: Hyperinflation otherwise negative. Hakan Esparza MD FACR Assessment and Plan Problem List: (1) Troponin level elevated Assessment and Plan: No significant CAD by cath 1.5 years ago; no chest pain, continue medical therapy (2) GI bleed Assessment and Plan: Given relatively recent cath and absence of current cardiac sx, would have her proceed with any urgent GI procedures w/o further cardiac risk stratification. (3) CHF (congestive heart failure) Assessment and Plan: BNP was modestly elevated on admission, ECHO shows stable LVEF for her at 40-45%; currently compensated. Assessment and Plan will sign off but be available as needed, please call with questions. Problem Qualifiers (1) GI bleed: Qualified Code: K92.2 - Gastrointestinal hemorrhage, unspecified gastrointestinal hemorrhage type Ellis Jarvis MD Oct 28, 2016 09:22
--- NOTE | 2016-10-28 09:27 | HHI.PR ---
Subjective Remarks Follow-up GI bleed and COPD exacerbation. Alerted by RN patient having dark red watery stools 3 this morning. Per GI notes yesterday no active bleed. Also complains of lower abdominal discomfort. Improving shortness of breath on 1.5 L nasal cannula. Discussed with RN, awaiting return call from GI. Keep nothing by mouth for now. Consulted by critical care medicine for further management and transfer care. Chart reviewed. Objective Vitals Vital Signs Date Time Temp Pulse Resp B/P Pulse Ox O2 Delivery O2 Flow Rate FiO2 10/28/16 08:05 94 Nasal Cannula 1.00 10/28/16 08:00 80 10/28/16 07:00 80 10/28/16 07:00 97.9 80 20 144/82 100 10/28/16 06:00 75 10/28/16 05:00 76 10/28/16 04:00 77 18 141/71 99 10/28/16 04:00 77 10/28/16 03:00 76 10/28/16 02:00 76 10/28/16 01:00 74 10/28/16 00:00 98.1 77 18 137/84 99 10/28/16 00:00 75 10/27/16 23:00 80 10/27/16 22:42 97 Nasal Cannula 3.00 10/27/16 22:00 82 10/27/16 21:00 78 10/27/16 20:00 97.9 76 20 147/72 100 10/27/16 20:00 74 10/27/16 19:00 79 10/27/16 18:11 75 10/27/16 17:00 68 10/27/16 16:00 72 10/27/16 15:21 100 Nasal Cannula 2.00 10/27/16 15:04 98.3 67 20 153/85 98 10/27/16 15:00 72 10/27/16 13:45 79 22 146/77 100 10/27/16 12:00 77 10/27/16 12:00 98.4 77 24 100 10/27/16 10:00 79 I/O 10/27/16 10/27/16 10/27/16 10/28/16 10/28/16 10/28/16 06:59 14:59 22:59 06:59 14:59 22:59 Intake Total 537 ml 480 ml 240 ml Output Total 300 ml 800 ml 650 ml Balance 237 ml -320 ml -410 ml Intake Oral 240 ml 480 ml 240 ml IV Total 297 ml Output Urine Total 300 ml 800 ml 650 ml # Bowel Movements 1 1 4 Result Diagram: 10/28/16 0550 10/28/16 [address] Angiography 10/25/162049 Signed Impressions: Service Date/Time: Tuesday, October 25, 2016 21:39 - CONCLUSION: Negative for central pulmonary emboli with marked hyperinflation Hakan Esparza MD FACR Chest X-Ray 10/25/161806 Signed Impressions: Service Date/Time: Tuesday, October 25, 2016 18:09 - CONCLUSION: Hyperinflation otherwise negative. Hakna Esparza MD FACR Objective Remarks GENERAL: Well-developed, well-nourished in no distress. Appears weak SKIN: Warm and dry. HEAD: Atraumatic. Normocephalic. EYES: Pupils equal and round. No scleral icterus. No injection or drainage. ENT: No nasal bleeding or discharge. Mucous membranes pink and moist. NECK: Trachea midline. No JVD. CARDIOVASCULAR: Regular rate and rhythm. RESPIRATORY: No accessory muscle use. Clear to auscultation. Breath sounds equal bilaterally. GASTROINTESTINAL: Abdomen soft, slightly tender left lower quadrant, nondistended. MUSCULOSKELETAL: Extremities without clubbing, cyanosis, or edema. No obvious deformities. NEUROLOGICAL: Awake and alert. No obvious cranial nerve deficits. Motor grossly within normal limits. Five out of 5 muscle strength in the arms and legs. Normal speech. PSYCHIATRIC: Appropriate mood and affect; insight and judgment normal. A/P Problem List: (1) GI bleed ICD Code: K92.2 Status: Acute (2) NSTEMI (non-ST elevated myocardial infarction) ICD Code: I21.4 Status: Acute (3) Acute exacerbation of inflammatory bowel disease Status: Acute (4) Colitis ICD Code: K52.9 Status: Acute Assessment and Plan GI bleed status post colonoscopy 10/11/16 with the following results 1. Severe nonspecific colitis of the right colon, transverse colon, descending colon. 2. Mild nonspecific colitis of the rectosigmoid and rectum. 3. Stricture of the rectosigmoid. Pathology with active chronic colitis. Workup negative for infectious etiology. Being treated for suspected IBD with IV Solu-Medrol and mesalamine. Patient states she has been bleeding since colonoscopy but cannot tell stool character as she does not look at it. She is hemodynamically stable. Keep nothing by mouth pending GI follow-up. Gentle IV hydration. Continue PPI. Repeat H&H every 8 hours and transfuse to keep hemoglobin at least 8 Elevated troponin. Patient denies chest pain. No significant CAD per cardiac catheterization over a year ago. Per cardiology, continue Coreg. Aspirin if no active bleed Elevated BNP with a history of systolic and diastolic heart failure EF 45%. Appears to be compensated at this time. Monitor for overload COPD exacerbation. Improving continue nebulizations, steroids, Zithromax and wean oxygen Discontinue Willett catheter Discharge Planning Not stable for discharge I spent 35 minutes [id number] with the patient or on the gill discussing the patient's disposition, prognosis, and plan of care with patient's caregivers. Over half the time spent was devoted to counseling the patient regarding care with caregivers Problem Qualifiers (1) GI bleed: Qualified Code: K92.2 - Gastrointestinal hemorrhage, unspecified gastrointestinal hemorrhage type Jeremy Aldana MD Oct 28, 2016 09:27
--- NOTE | 2016-10-28 09:47 | HHI.GIFU ---
Subjective Remarks Mar[place] stools noted today HB 9.0 otherwise no complaints Objective Vitals I&O Vital Signs Date Time Temp Pulse Resp B/P Pulse Ox O2 Delivery O2 Flow Rate FiO2 10/28/16 08:05 94 Nasal Cannula 1.00 10/28/16 08:00 80 10/28/16 07:00 80 10/28/16 07:00 97.9 80 20 144/82 100 10/28/16 06:00 75 10/28/16 05:00 76 10/28/16 04:00 77 18 141/71 99 10/28/16 04:00 77 10/28/16 03:00 76 10/28/16 02:00 76 10/28/16 01:00 74 10/28/16 00:00 98.1 77 18 137/84 99 10/28/16 00:00 75 10/27/16 23:00 80 10/27/16 22:42 97 Nasal Cannula 3.00 10/27/16 22:00 82 10/27/16 21:00 78 10/27/16 20:00 97.9 76 20 147/72 100 10/27/16 20:00 74 10/27/16 19:00 79 10/27/16 18:11 75 10/27/16 17:00 68 10/27/16 16:00 72 10/27/16 15:21 100 Nasal Cannula 2.00 10/27/16 15:04 98.3 67 20 153/85 98 10/27/16 15:00 72 10/27/16 13:45 79 22 146/77 100 10/27/16 12:00 77 10/27/16 12:00 98.4 77 24 100 10/27/16 10:00 79 I/O 10/27/16 10/27/16 10/27/16 10/28/16 10/28/16 10/28/16 07:00 15:00 23:00 07:00 15:00 23:00 Intake Total 537 ml 480 ml 240 ml Output Total 300 ml 800 ml 650 ml Balance 237 ml -320 ml -410 ml Intake Oral 240 ml 480 ml 240 ml IV Total 297 ml Output Urine Total 300 ml 800 ml 650 ml # Bowel Movements 1 1 4 Laboratory Laboratory Tests Test 10/27/16 10/28/16 13:05 05:50 Stool C. difficile Toxin (PCR) NEGATIVE Stl C. difficile Toxin PRESUMPTIVE Epiderm 027 NEGATIVE White Blood Count 11.8 Red Blood Count 3.45 Hemoglobin 9.0 Hematocrit 27.9 Mean Corpuscular Volume 80.9 Mean Corpuscular Hemoglobin 26.2 Mean Corpuscular Hemoglobin 32.3 Concent Red Cell Distribution Width 14.4 Platelet Count 281 Mean Platelet Volume 7.9 Neutrophils (%) (Auto) 77.8 Lymphocytes (%) (Auto) 13.0 Monocytes (%) (Auto) 9.1 Eosinophils (%) (Auto) 0.0 Basophils (%) (Auto) 0.1 Neutrophils # (Auto) 9.2 Lymphocytes # (Auto) 1.5 Monocytes # (Auto) 1.1 Eosinophils # (Auto) 0.0 Basophils # (Auto) 0.0 CBC Comment DIFF FINAL Differential Comment Sodium Level 134 Potassium Level 3.7 Chloride Level 100 Carbon Dioxide Level 27.1 Anion Gap 7 Blood Urea Nitrogen 13 Creatinine 0.55 Estimat Glomerular Filtration 109 Rate Random Glucose 105 Calcium Level 8.2 Magnesium Level 2.3 Total Bilirubin 0.2 Aspartate Amino Transf 12 (AST/SGOT) Alanine Aminotransferase 10 (ALT/SGPT) Alkaline Phosphatase 46 Total Protein 5.5 Albumin 1.8 Date/Time Procedure Status Source Growth 10/25/16 18:25 Aerobic Blood Culture - Preliminary Resulted Blood Peripheral NO GROWTH IN 2 DAYS 10/25/16 18:25 Anaerobic Blood Culture - Preliminary Resulted Blood Peripheral NO GROWTH IN 2 DAYS Physical Exam NECK: Neck is supple, no JVD, no lymphadenopathy. CHEST: Chest is clear to auscultation and percussion. CARDIAC: Regular rate and rhythm with no murmur gallop or rubs. ABDOMEN: Soft, nondistended, nontender; no hepatosplenomegaly; bowel sounds are present in all four quadrants. EXTREMITIES: No clubbing, cyanosis, or edema. SKIN: Normal; no rash; no jaundice. Assessment and Plan Assessment: (1) GI bleed (2) Colitis Plan Would continue IV steroids for suspected IBD....continue mesalamine as well... will add carafate ?discuss w CRS Problem Qualifiers (1) GI bleed: Qualified Code: K92.2 - Gastrointestinal hemorrhage, unspecified gastrointestinal hemorrhage type Delmar Sullivan MD Oct 28, 2016 09:47
[2016-10-28] MEDS: PANTOPRAZOLE SODIUM 40 MG VIAL IV SCH ×2 (09:53→21:05)
[2016-10-28] MEDS: CARVEDILOL 12.5 MG TAB PO SCH ×2 (09:53→21:06)
[2016-10-28] MEDS: AZITHROMYCIN 250 MG TAB PO SCH (09:53)
[2016-10-28] MEDS ORDERED: NS + KCL 20 MEQ INJ 1,000 ML IV PRN (10:00)
[2016-10-28] MEDS: SUCRALFATE 1 GM/10 ML CUP PO SCH ×3 (11:00→23:19)
[2016-10-28] MEDS: methylPREDNISolone SOD SUCC 40 MG/1 ML VIAL IV SCH ×3 (12:00→23:20)
[2016-10-28 13:12] LABS: HEMATOCRIT 28.4 % (35.0-46.0); REVIEW FLAG FINAL
[2016-10-28 20:49] LABS: HEMATOCRIT 26.9 % (35.0-46.0); REVIEW FLAG FINAL
[2016-10-28] MEDS: ATORVASTATIN 40 MG TAB PO SCH (21:05)
[2016-10-29] VITALS (21 sets, daily range): BP systolic 121–152; BP diastolic 63–87; PULSE 62–89; RESP 18–20; TEMP 97.4–98.3; O2SAT 97–99
[2016-10-29] MEDS: RESP: ALBUTEROL 2.5 MG/IPRATROPIUM 0.5 MG NEB (SCH) INH ×3 (00:27→16:39)
[2016-10-29] MEDS: CHLORHEXIDINE GLUCONATE 2 % 1 PACK (2 CLOTHS) TOP SCH (03:06)
[2016-10-29] MEDS: MESALAMINE HD 800 MG DELAYED RELEASE TAB PO SCH ×3 (05:25→20:45)
[2016-10-29 06:20] LABS: AUTOMATED NEUTROPHIL # 6.4 TH/MM3 (1.8-7.7); BASOPHIL % 0.1 % (0.0-2.0); HEMATOCRIT 28.5 % (35.0-46.0); LYMPH % 13.7 % (9.0-44.0); LYMPHOCYTE # 1.1 TH/MM3 (1.0-4.8); MEAN CELL VOLUME 79.6 FL (80.0-100.0); MEAN CORPUSCULAR HEMOGLOBIN 27.2 PG (27.0-34.0); MEAN CORPUSCULAR HGB CONC 34.1 % (32.0-36.0); MONO % 3.5 % (0.0-8.0); NEUT % 82.7 % (16.0-70.0); PLATELET COUNT 294 TH/MM3 (150-450); RED BLOOD COUNT 3.58 MIL/MM3 (4.00-5.30); RED CELL DISTRIBUTION WIDTH 14.6 % (11.6-17.2); WHITE BLOOD COUNT 7.7 TH/MM3 (4.0-11.0)
[2016-10-29 06:25] LABS: HEMO FLAGS AUTO DIFF
[2016-10-29 06:26] LABS: BICARBONATE 26.9 MEQ/L (21.0-32.0); MAGNESIUM 2.3 MG/DL (1.5-2.5); POTASSIUM 4.2 MEQ/L (3.5-5.1)
--- NOTE | 2016-10-29 06:54 | MB ---
cc: JULIA IGLESIAS M.D., SUNIL P. M.D. DATE OF CONSULTATION 10/28/2016 REASON FOR CONSULTATION Acute colitis, colonic stricture, rectal bleeding. HISTORY OF PRESENT ILLNESS Ms. Beard is a 71-year-old female known from previous admission who was admitted for rectal bleeding. Ms. Beard was seen on a previous admission for workup of rectal bleeding and abdominal discomfort. Initial colonoscopy by Dr. Proctor in July, the patient was found to have a stricture and the colonoscopy was incomplete. She was admitted to the hospital in September for continuing abdominal symptoms, lack of appetite and rectal bleeding. Colonoscopy at that time did confirm a stricture of the sigmoid colon which was passed showing no sign of malignancy, but very inflamed nonspecific inflammation of the proximal colon. Biopsy showing nonspecific colonic inflammation. She was treated with anti-inflammatories. C. Diff was effectively ruled out and she was treated with steroids. She also had anti-inflammatory therapy. The patient was discharged to be followed up as an outpatient, however presented to the emergency room again feeling somewhat weak and fatigued. She complains of additional rectal bleeding with bowel movements. Denies any abdominal pain. No significant nausea or vomiting, but has no appetite. It is unsure exactly how much of bleeding that she has had. The patient was admitted for medical evaluation and further workup of the colitis. Please see her history and physical and consultations for more complete past medical and surgical history. PERTINENT PHYSICAL This s a very pleasant, somewhat depressed appearing female in no acute distress. HEENT: Remarkable for slightly pale dry membranes, nonicteric sclera. NECK: Stiff without adenopathy. CHEST: Relatively diminished bilaterally symmetrical expanding. HEART: Regular rhythm. ABDOMEN: Very soft and flat, not really distended. Normal bowel sounds. No rebound or guarding or masses noted. ANAL INSPECTION: Revealed a benign canal. Digital exam revealed good tone with some maroon stool on the finger. No irregular mucosa, quite tender to touch. EXTREMITIES: No cyanosis or clubbing and 1-2+ pedal edema. LABORATORY FINDINGS White count was 7.5, hemoglobin was 9.5, platelet count was 280,000. Electrolytes remarkable for an albumin of 1.8, BUN of 13, creatinine of 0.5, normal liver function tests. Troponin was elevated at 2.9 and has come down to 0.62. CT angiogram showed no evidence of pulmonary emboli. IMPRESSION This is a 71-year-old female with failure to thrive, anorexia, weight loss and really nonspecific type of inflammatory colitis. The patient has been started empirically on IV steroids and her five ASA anti-inflammatories have been continued. She surely has a nontoxic abdominal examination. If the inflammatory process continues despite steroids, the stricture plays a more acute role in her bowel function, she may require a segmental resection for a more definitive diagnosis and removal of the strictured colonic segment. We will continue to manage with nutritional supplements and observe her response to medical therapy. MD COLT Yuen/KIN /10:21 PM /6:48 AM
[2016-10-29 07:05] LABS: BANDS 21 % (0-6); METAMYELOCYTES 1 % (0-1); MYELOCYTES 1 % (0-0); PLATELET ESTIMATE SMEAR NORMAL (NORMAL); PLATELET MORPHOLOGY NORMAL (NORMAL); POLYS (SEG NEUTROPHILS) 68 % (16-70); SCAN/DIFF FINAL DIFF MANUAL; WBC DIFF SAMPLE 100
[2016-10-29] MEDS: SUCRALFATE 1 GM/10 ML CUP PO SCH ×4 (07:28→20:45)
--- NOTE | 2016-10-29 08:44 | HHI.PR ---
Subjective Remarks Follow-up colitis. States loose stool improving denies pain, Trying to eat more dw RN and CRS Objective Vitals Vital Signs Date Time Temp Pulse Resp B/P Pulse Ox O2 Delivery O2 Flow Rate FiO2 10/29/16 07:48 84 10/29/16 07:48 97.9 83 20 137/74 99 10/29/16 05:42 85 10/29/16 04:09 74 10/29/16 03:20 77 10/29/16 03:20 97.6 78 18 121/66 97 10/29/16 02:07 67 10/29/16 01:00 77 10/29/16 00:28 98 10/29/16 00:00 75 10/28/16 23:05 98.2 75 21 124/73 99 10/28/16 23:00 73 10/28/16 22:00 72 10/28/16 21:00 72 10/28/16 20:30 72 10/28/16 19:20 98.0 78 20 134/58 98 10/28/16 19:20 73 10/28/16 18:00 59 10/28/16 17:00 72 10/28/16 16:00 74 10/28/16 15:00 97.6 70 18 129/76 98 10/28/16 15:00 71 10/28/16 14:00 78 10/28/16 13:00 78 10/28/16 12:00 77 10/28/16 11:00 70 10/28/16 11:00 97.6 70 18 129/76 98 10/28/16 10:00 77 10/28/16 09:00 72 I/O 10/28/16 10/28/16 10/28/16 10/29/16 10/29/16 10/29/16 07:00 15:00 23:00 07:00 15:00 23:00 Intake Total 240 ml 200 ml 480 ml Output Total 650 ml 400 ml 2310 ml Balance -410 ml -200 ml -1830 ml Intake Oral 240 ml 200 ml 480 ml Output Urine Total 650 ml 400 ml 2310 ml # Bowel Movements 4 8 Result Diagram: 10/29/1651910/29/[address] Angiography 10/25/162049 Signed Impressions: Service Date/Time: Tuesday, October 25, 2016 21:39 - CONCLUSION: Negative for central pulmonary emboli with marked hyperinflation Hakan Esparza MD FACR Chest X-Ray 10/25/16 1807 Signed Impressions: Service Date/Time: Tuesday, October 25, 2016 18:09 - CONCLUSION: Hyperinflation otherwise negative. Hakan Esparza MD FACR Objective Remarks GENERAL: Well-developed, well-nourished in no distress. Appears weak SKIN: Warm and dry. HEAD: Atraumatic. Normocephalic. EYES: Pupils equal and round. No scleral icterus. No injection or drainage. ENT: No nasal bleeding or discharge. Mucous membranes pink and moist. NECK: Trachea midline. No JVD. CARDIOVASCULAR: Regular rate and rhythm. RESPIRATORY: No accessory muscle use. Clear to auscultation. Breath sounds equal bilaterally. GASTROINTESTINAL: Abdomen soft, slightly tender left lower quadrant, nondistended. MUSCULOSKELETAL: Extremities without clubbing, cyanosis, or edema. No obvious deformities. NEUROLOGICAL: Awake and alert. No obvious cranial nerve deficits. Motor grossly within normal limits. Five out of 5 muscle strength in the arms and legs. Normal speech. PSYCHIATRIC: Appropriate mood and affect; insight and judgment normal. A/P Problem List: (1) GI bleed ICD Code: K92.2 Status: Acute (2) NSTEMI (non-ST elevated myocardial infarction) ICD Code: I21.4 Status: Acute (3) Acute exacerbation of inflammatory bowel disease Status: Acute (4) Colitis ICD Code: K52.9 Status: Acute Assessment and Plan GI bleed status post colonoscopy 10/11/16 with the following results 1. Severe nonspecific colitis of the right colon, transverse colon, descending colon. 2. Mild nonspecific colitis of the rectosigmoid and rectum. 3. Stricture of the rectosigmoid. Pathology with active chronic colitis. Workup negative for infectious etiology. Being treated for suspected IBD with IV Solu-Medrol and mesalamine. Patient states she has been bleeding since colonoscopy but cannot tell stool character as she does not look at it. She is hemodynamically stable. Pt claims improving loose stools. Continue PPI. Monitor blood counts and transfuse to keep hemoglobin at least 8. GI and CRS following. If symptoms persist or worse, may need segmental resection for definitive diagnosis. Consult dietitian Elevated troponin. Patient denies chest pain. No significant CAD per cardiac catheterization over a year ago. Per cardiology, continue Coreg. Aspirin if no active bleed Elevated BNP with a history of systolic and diastolic heart failure EF 45%. Appears to be compensated at this time. Monitor for overload COPD exacerbation. Improving continue nebulizations, steroids, Zithromax and wean oxygen Hyperglycemia from steroids. A1c 5.8 Discontinue Willett catheter Discharge Planning Not stable for discharge Problem Qualifiers (1) GI bleed: Qualified Code: K92.2 - Gastrointestinal hemorrhage, unspecified gastrointestinal hemorrhage type Jeremy Aldana MD Oct 29, 2016 08:44
[2016-10-29] MEDS: DOCUSATE SODIUM 50 MG/SENNA 8.6 MG TAB PO SCH ×2 (09:00→20:53)
[2016-10-29] MEDS: PANTOPRAZOLE SODIUM 40 MG VIAL IV SCH (09:17)
[2016-10-29] MEDS: AZITHROMYCIN 250 MG TAB PO SCH (09:18)
[2016-10-29] MEDS: CARVEDILOL 12.5 MG TAB PO SCH ×2 (09:18→20:45)
--- NOTE | 2016-10-29 11:55 | HHI.GIFU ---
Subjective Remarks alert nad rectal bleeding somewhat less today hb stable Objective Vitals I&O Vital Signs Date Time Temp Pulse Resp B/P Pulse Ox O2 Delivery O2 Flow Rate FiO2 10/29/16 10:54 62 10/29/16 09:05 69 10/29/16 09:02 98 21 10/29/16 08:39 79 10/29/16 07:48 84 10/29/16 07:48 97.9 83 20 137/74 99 10/29/16 05:42 85 10/29/16 04:09 74 10/29/16 03:20 77 10/29/16 03:20 97.6 78 18 121/66 97 10/29/16 02:07 67 10/29/16 01:00 77 10/29/16 00:28 98 10/29/16 00:00 75 10/28/16 23:05 98.2 75 21 124/73 99 10/28/16 23:00 73 10/28/16 22:00 72 10/28/16 21:00 72 10/28/16 20:30 72 10/28/16 19:20 98.0 78 20 134/58 98 10/28/16 19:20 73 10/28/16 18:00 59 10/28/16 17:00 72 10/28/16 16:00 74 10/28/16 15:00 97.6 70 18 129/76 98 10/28/16 15:00 71 10/28/16 14:00 78 10/28/16 13:00 78 10/28/16 12:00 77 I/O 10/28/16 10/28/16 10/28/16 10/29/16 10/29/16 10/29/16 07:00 15:00 23:00 07:00 15:00 23:00 Intake Total 240 ml 200 ml 480 ml Output Total 650 ml 400 ml 2310 ml Balance -410 ml -200 ml -1830 ml Intake Oral 240 ml 200 ml 480 ml Output Urine Total 650 ml 400 ml 2310 ml # Bowel Movements 4 8 Laboratory Laboratory Tests Test 10/28/16 10/28/16 10/29/16 12:11 20:32 05:20 Hemoglobin 9.5 9.0 9.7 Hematocrit 28.4 26.9 28.5 White Blood Count 7.7 Red Blood Count 3.58 Mean Corpuscular Volume 79.6 Mean Corpuscular Hemoglobin 27.2 Mean Corpuscular Hemoglobin 34.1 Concent Red Cell Distribution Width 14.6 Platelet Count 294 Mean Platelet Volume 8.2 Neutrophils (%) (Auto) 82.7 Lymphocytes (%) (Auto) 13.7 Monocytes (%) (Auto) 3.5 Eosinophils (%) (Auto) 0.0 Basophils (%) (Auto) 0.1 Neutrophils # (Auto) 6.4 Lymphocytes # (Auto) 1.1 Monocytes # (Auto) 0.3 Eosinophils # (Auto) 0.0 Basophils # (Auto) 0.0 CBC Comment AUTO DIFF Differential Total Cells 100 Counted Neutrophils % (Manual) 68 Band Neutrophils % 21 Lymphocytes % 5 Monocytes % 4 Neutrophils # (Manual) 7.0 Metamyelocytes 1 Myelocytes 1 Differential Comment FINAL DIFF MANUAL Platelet Estimate NORMAL Platelet Morphology Comment NORMAL Sodium Level 135 Potassium Level 4.2 Chloride Level 100 Carbon Dioxide Level 26.9 Anion Gap 8 Blood Urea Nitrogen 11 Creatinine 0.56 Estimat Glomerular Filtration 107 Rate Random Glucose 144 Calcium Level 8.0 Magnesium Level 2.3 Date/Time Procedure Status Source Growth 10/25/16 18:25 Aerobic Blood Culture - Preliminary Resulted Blood Peripheral NO GROWTH IN 4 DAYS 10/25/16 18:25 Anaerobic Blood Culture - Preliminary Resulted Blood Peripheral NO GROWTH IN 4 DAYS Physical Exam CHEST: Chest is clear to auscultation and percussion. CARDIAC: Regular rate and rhythm with no murmur gallop or rubs. ABDOMEN: Soft, nondistended, nontender; no hepatosplenomegaly; bowel sounds are present in all four quadrants. EXTREMITIES: No clubbing, cyanosis, or edema. SKIN: Normal; no rash; no jaundice. Assessment and Plan Assessment: (1) GI bleed (2) Colitis Plan Continue Iv steroids and mesalamine discussed case w Dr edmondson as pt is known to him...have ordered labs in anticipation of biologic therapy in ther near future ie Remicade...If she stabilizes we can transition to oral prednisone Dr Garcia to follow. Problem Qualifiers (1) GI bleed: Qualified Code: K92.2 - Gastrointestinal hemorrhage, unspecified gastrointestinal hemorrhage type Delmar Sullivan MD Oct 29, 2016 11:55
[2016-10-29] MEDS: methylPREDNISolone SOD SUCC 40 MG/1 ML VIAL IV SCH (12:33)
[2016-10-29] MEDS: PANTOPRAZOLE SOD 40 MG DELAYED RELEASE TAB PO SCH (20:45)
[2016-10-29] MEDS: ATORVASTATIN 40 MG TAB PO SCH (20:45)
[2016-10-29] MEDS: ACETAMINOPHEN 325 MG TAB PO PRN (22:33)
[2016-10-30] VITALS (9 sets, daily range): BP systolic 124–173; BP diastolic 60–80; PULSE 66–87; RESP 18–20; TEMP 97.3–97.9; O2SAT 97–99
[2016-10-30] MEDS: RESP: ALBUTEROL 2.5 MG/IPRATROPIUM 0.5 MG NEB (SCH) INH ×4 (01:04→23:20)
[2016-10-30] MEDS: CHLORHEXIDINE GLUCONATE 2 % 1 PACK (2 CLOTHS) TOP SCH (04:00)
[2016-10-30] MEDS: SUCRALFATE 1 GM/10 ML CUP PO SCH ×4 (07:35→21:30)
[2016-10-30] MEDS: MESALAMINE HD 800 MG DELAYED RELEASE TAB PO SCH ×3 (07:35→21:30)
[2016-10-30 08:31] LABS: WHITE BLOOD COUNT 11.4 TH/MM3 (4.0-11.0)
[2016-10-30 08:32] LABS: AUTOMATED NEUTROPHIL # 9.4 TH/MM3 (1.8-7.7); BASOPHIL % 0.1 % (0.0-2.0); EOSINOPHIL % 0.1 % (0.0-4.0); HEMATOCRIT 28.9 % (35.0-46.0); LYMPH % 12.7 % (9.0-44.0); LYMPHOCYTE # 1.4 TH/MM3 (1.0-4.8); MEAN CELL VOLUME 81.4 FL (80.0-100.0); MEAN CORPUSCULAR HEMOGLOBIN 26.3 PG (27.0-34.0); MEAN CORPUSCULAR HGB CONC 32.2 % (32.0-36.0); MONO % 4.6 % (0.0-8.0); NEUT % 82.5 % (16.0-70.0); PLATELET COUNT 296 TH/MM3 (150-450); RED BLOOD COUNT 3.55 MIL/MM3 (4.00-5.30); RED CELL DISTRIBUTION WIDTH 14.8 % (11.6-17.2)
[2016-10-30 08:36] LABS: HEMO FLAGS AUTO DIFF
[2016-10-30 08:42] LABS: BICARBONATE 25.2 MEQ/L (21.0-32.0); MAGNESIUM 2.2 MG/DL (1.5-2.5); POTASSIUM 4.2 MEQ/L (3.5-5.1)
[2016-10-30] MEDS: DOCUSATE SODIUM 50 MG/SENNA 8.6 MG TAB PO SCH ×2 (08:57→21:30)
[2016-10-30] MEDS: CARVEDILOL 12.5 MG TAB PO SCH ×2 (08:57→21:30)
[2016-10-30] MEDS: AZITHROMYCIN 250 MG TAB PO SCH (08:57)
[2016-10-30] MEDS: PANTOPRAZOLE SOD 40 MG DELAYED RELEASE TAB PO SCH ×2 (08:58→21:30)
--- NOTE | 2016-10-30 09:35 | HHI.PR ---
Subjective Remarks Follow-up colitis. 4 stools already today and less watery. Also complains of dyspnea on exertion secondary to COPD. Discussed with RN Objective Vitals Vital Signs Date Time Temp Pulse Resp B/P Pulse Ox O2 Delivery O2 Flow Rate FiO2 10/30/16 04:00 97.4 75 18 150/67 97 10/30/16 00:00 97.9 81 18 124/60 97 10/29/16 21:28 Room Air 10/29/16 20:00 77 10/29/16 20:00 98.3 77 20 142/74 99 10/29/16 20:00 97.4 68 18 140/63 98 10/29/16 18:21 68 10/29/16 17:08 80 10/29/16 16:31 79 10/29/16 15:46 79 10/29/16 15:46 98.0 79 20 152/76 98 10/29/16 14:04 75 10/29/16 13:38 83 10/29/16 12:27 66 10/29/16 11:49 89 10/29/16 11:49 97.8 89 20 140/87 98 10/29/16 10:54 62 I/O 10/29/16 10/29/16 10/29/16 10/30/16 10/30/16 10/30/16 07:00 15:00 23:00 07:00 15:00 23:00 Intake Total 480 ml 720 ml 720 ml Output Total 2310 ml Balance -1830 ml 720 ml 720 ml Intake Oral 480 ml 720 ml 720 ml Output Urine Total 2310 ml # Voids 4 2 # Bowel Movements 1 2 Result Diagram: 10/30/1670410/30/[address] Angiography 10/25/162049 Signed Impressions: Service Date/Time: Tuesday, October 25, 2016 21:39 - CONCLUSION: Negative for central pulmonary emboli with marked hyperinflation Hakan Esparza MD FACR Chest X-Ray 10/25/161806 Signed Impressions: Service Date/Time: Tuesday, October 25, 2016 18:09 - CONCLUSION: Hyperinflation otherwise negative. Hakan Esparza MD FACR Objective Remarks GENERAL: Well-developed, well-nourished in no distress. Appears weak SKIN: Warm and dry. HEAD: Atraumatic. Normocephalic. EYES: Pupils equal and round. No scleral icterus. No injection or drainage. ENT: No nasal bleeding or discharge. Mucous membranes pink and moist. NECK: Trachea midline. No JVD. CARDIOVASCULAR: Regular rate and rhythm. RESPIRATORY: No accessory muscle use. Clear to auscultation. Breath sounds equal bilaterally. GASTROINTESTINAL: Abdomen soft, slightly tender left lower quadrant, nondistended. MUSCULOSKELETAL: Extremities without clubbing, cyanosis, or edema. No obvious deformities. NEUROLOGICAL: Awake and alert. No obvious cranial nerve deficits. Motor grossly within normal limits. Five out of 5 muscle strength in the arms and legs. Normal speech. PSYCHIATRIC: Appropriate mood and affect; insight and judgment normal. A/P Problem List: (1) GI bleed ICD Code: K92.2 Status: Acute (2) NSTEMI (non-ST elevated myocardial infarction) ICD Code: I21.4 Status: Acute (3) Acute exacerbation of inflammatory bowel disease Status: Acute (4) Colitis ICD Code: K52.9 Status: Acute Assessment and Plan GI bleed status post colonoscopy 10/11/16 with the following results 1. Severe nonspecific colitis of the right colon, transverse colon, descending colon. 2. Mild nonspecific colitis of the rectosigmoid and rectum. 3. Stricture of the rectosigmoid. Pathology with active chronic colitis. Workup negative for infectious etiology. Being treated for suspected IBD with IV Solu-Medrol and mesalamine. Patient states she has been bleeding since colonoscopy but cannot tell stool character as she does not look at it. She is hemodynamically stable. Pt claims improving loose stools. Continue PPI. Monitor blood counts and transfuse to keep hemoglobin at least 8. GI and CRS following. If symptoms persist or worse, may need segmental resection for definitive diagnosis. Follow -up repeat CT evaluate stricture. Per GI will start Remicade follow up TB screen. Hepatitis profile negative. Consult dietitian Elevated troponin. Patient denies chest pain. No significant CAD per cardiac catheterization over a year ago. Per cardiology, continue Coreg. Aspirin if no active bleed Elevated BNP with a history of systolic and diastolic heart failure EF 45%. Appears to be compensated at this time. Monitor for overload COPD exacerbation. Complaints of dyspnea on exertion today but no active wheezing. Continue nebulizations, steroids, Zithromax and wean oxygen Hyperglycemia from steroids. A1c 5.8 Discontinue Willett catheter Discharge Planning Not stable for discharge Problem Qualifiers (1) GI bleed: Qualified Code: K92.2 - Gastrointestinal hemorrhage, unspecified gastrointestinal hemorrhage type Jeremy Aldana MD Oct 30, 2016 09:35
[2016-10-30 10:00] LABS: BANDS 5 % (0-6); METAMYELOCYTES 2 % (0-1); POLYS (SEG NEUTROPHILS) 81 % (16-70); WBC DIFF SAMPLE 100
[2016-10-30 10:01] LABS: PLATELET ESTIMATE SMEAR NORMAL (NORMAL); PLATELET MORPHOLOGY NORMAL (NORMAL); SCAN/DIFF FINAL DIFF MANUAL
--- NOTE | 2016-10-30 11:09 | HHI.GIFU ---
GI Follow-up Note Consult Follow-up Subjective: Patient is on the bedside commode. She says stool frequency has decreased from 7-8x/day before admission to 5x/day now, since starting steroids. Stool consistency is slightly more formed. No pain. 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 Available Data (labs, X- Rays, Procedues) : I reviewed the colon biopsy slide with Dr. Patel today. The appearances is consistent with inflammatory bowel disease, likely Crohn's disease given the presence of inflammation below the muscularis mucosa. ASSESSMENT/PLAN:IBD, likely Crohn's disease. Continue steroids and a low residue diet. Add VSL#3 and turmeric. Add cholestyramine, if not being given yet. It was a pleasure seeing Katie Beard. Entered by: Micah Mora MD Oct 30, 2016 11:09
[2016-10-30] MEDS ORDERED: DIATRIZOATE MEGLUM/DIATRIZOATE SOD 9 ML CUP PO ONE (12:15)
[2016-10-30] MEDS: methylPREDNISolone SOD SUCC 40 MG/1 ML VIAL IV SCH ×3 (12:27→23:15)
[2016-10-30] MEDS: CHOLESTYRAMINE 4 GM PACKET PO SCH ×2 (12:28→21:30)
--- NOTE | 2016-10-30 13:39 | HHI.PR ---
Subjective Remarks C/R Surg afebrile, VSS eating little feels miserable Objective - Vital Signs Date Time Temp Pulse Resp B/P Pulse Ox O2 Delivery O2 Flow Rate FiO2 10/30/16 12:00 97.5 71 18 137/66 98 10/29/16 21:28 Room Air 10/29/16 09:02 21 10/28/16 08:05 1.00 Result Diagram: 10/30/16 0705 10/30/16 0705 Other Results PE alert Abd - soft, flat, min tender A/P Assessment and Plan Imp: check CT to eval stricture seen last visit cont med Rx needs stimulation Dung Guillen MD Oct 30, 2016 13:39
[2016-10-30] MEDS ORDERED: SOD PHOSPHATE/SOD BIPHOSPHATE (ADULT) ENEMA 133ML RECTAL SCH (18:15)
--- NOTE | 2016-10-30 18:52 | RADRPT ---
EXAM DATE/TIME: 10/30/2016 18:25 [place] COMPARISON: No previous studies available for comparison. INDICATIONS : Evaluate for colon stricture. ORAL CONTRAST: Prescribed oral contrast ingested. RADIATION DOSE: 9.96 CTDIvol (mGy) MEDICAL HISTORY : None SURGICAL HISTORY : None. ENCOUNTER: Initial ACUITY: 1 day PAIN SCALE: 6/10 LOCATION: Bilateral lower quadrant TECHNIQUE: Volumetric scanning of the abdomen and pelvis was performed. Using automated exposure control and ad justment of the mA and/or kV according to patient size, radiation dose was kept as low as reasonably achievable to obtain optimal diagnostic quality images. DICOM format image data is available electro nically for review and comparison. FINDINGS: The lung base is are clear. The liver is free of focal defects. Small amount of air is seen in the common duct. The spleen, pancreas and adrenals unremarkable Rectal contrast is seen across the surgical anastomosis without extravasation or leak. There is minimal bowel wall thickening in the transverse colon suggestion of mild colitis. CONCLUSION: Minimal nonspecific air in the common duct.. There is no evidence for colonic obstruction retrograde contrast. Mild colitis is evident. Hakan Esparza MD FACR on October 30, 2016 at 18:48 Board Certified Radiologist. This report was verified electronically.
[2016-10-30 21:20] LABS: MITOGEN MINUS NIL RESULT 1.21 IU/mL (()); NIL RESULT 0.02 IU/mL (()); QUANTIFERON TB GOLD RESULT Negative (Negative)
[2016-10-30] MEDS: ATORVASTATIN 40 MG TAB PO SCH (21:30)
[2016-10-31] VITALS (9 sets, daily range): BP systolic 136–198; BP diastolic 64–86; PULSE 75–85; RESP 18–20; TEMP 97.4–97.7; O2SAT 96–100
[2016-10-31] MEDS: CHLORHEXIDINE GLUCONATE 2 % 1 PACK (2 CLOTHS) TOP SCH ×2 (04:00→21:38)
[2016-10-31] MEDS: SUCRALFATE 1 GM/10 ML CUP PO SCH ×4 (06:46→21:38)
[2016-10-31] MEDS: MESALAMINE HD 800 MG DELAYED RELEASE TAB PO SCH (06:46)
[2016-10-31] MEDS: CHOLESTYRAMINE 4 GM PACKET PO SCH ×3 (06:46→21:38)
--- NOTE | 2016-10-31 07:27 | HHI.GIFU ---
GI Follow-up Note Consult Follow-up Subjective: Patient laying in bed comfortably, no new complaints. She tells me she's passing a few stools per day and doesn't recall any overnight BMs. The night nurse says she passed five loose/watery stools overnight and about ten yesterday. Objective: PHYSICAL EXAMINATION: Vitals signs stable No fever HEENT: EOMI ABDOMEN: Soft, nondistended, nontender; good bowel sounds VACCINATOR: She seems unclear about her symptoms and seems to have some memory problems. Available Data (labs, X- Rays, Procedues) : Labs and CT report reviewed. ASSESSMENT/PLAN:Crohn's disease with persistent diarrhea; stool was negative for c. difficile on October 27. Cholestyramine was started yesterday. Of her current medications, pantoprazole, azithromycin, mesalamine, atorvastatin and senna (which seems to be scheduled BID routinely) may cause/aggravate diarrhea. We'll try to stop all these and see how she does. If no better we'll order Remicade. It was a pleasure seeing Katie Beard. Entered by: Micha Mora MD Oct 31, 2016 07:27
--- NOTE | 2016-10-31 08:16 | HHI.PR ---
Subjective Remarks C/R Surg afebrile, VSS eating little better feels more positive Objective - Vital Signs Date Time Temp Pulse Resp B/P Pulse Ox O2 Delivery O2 Flow Rate FiO2 10/31/16 04:00 97.6 78 20 144/67 98 10/30/16 19:45 Room Air 21 10/28/16 08:05 1.00 Result Diagram: 10/30/1670410/30/16 0705 Objective Remarks PE alert Abd - soft, non-tender A/P Assessment and Plan Imp: check CT to eval stricture seen last visit - no obstruction cont med Rx needs stimulation Dung Guillen MD Oct 31, 2016 08:16
[2016-10-31] MEDS: CARVEDILOL 12.5 MG TAB PO SCH ×2 (08:48→21:38)
[2016-10-31] MEDS: RESP: ALBUTEROL 2.5 MG/IPRATROPIUM 0.5 MG NEB (SCH) INH ×3 (09:16→23:58)
--- NOTE | 2016-10-31 09:38 | HHI.PR ---
Subjective Remarks Follow-up colitis, COPD and hypertension. Had 10 loose stools yesterday and today already have 5 stools states stools are firming up. Denies abdominal pain and shortness of breath. Discussed with RN Objective Vitals Vital Signs Date Time Temp Pulse Resp B/P Pulse Ox O2 Delivery O2 Flow Rate FiO2 10/31/16 09:15 97 21 10/31/16 08:00 97.7 84 18 198/86 97 10/31/16 04:00 97.6 78 20 144/67 98 10/31/16 00:00 97.4 75 20 139/64 100 10/30/16 22:00 97.3 77 20 173/73 99 10/30/16 20:00 87 10/30/16 19:45 Room Air 21 10/30/16 16:03 98 21 10/30/16 16:00 97.9 73 18 173/74 97 10/30/16 12:00 97.5 71 18 137/66 98 I/O 10/30/16 10/30/16 10/30/16 10/31/16 10/31/16 10/31/16 07:00 15:00 23:00 07:00 15:00 23:00 Intake Total 720 ml 600 ml 800 ml 120 ml Balance 720 ml 600 ml 800 ml 120 ml Intake Oral 720 ml 600 ml 800 ml 120 ml # Voids 2 1 2 4 # Bowel Movements 2 3 1 4 Result Diagram: 10/30/16 0705 10/30/16 0705 Imaging Last Impressions Abdomen/Pelvis CT 10/30/16 0000 Signed Impressions: Service Date/Time: Sunday, October 30, 2016 18:25 - CONCLUSION: Minimal nonspecific air in the common duct.. There is no evidence for colonic obstruction retrograde contrast. Mild colitis is evident. Hakan Esparza MD FACR CT Angiography 10/25/162049 Signed Impressions: Service Date/Time: Tuesday, October 25, 2016 21:39 - CONCLUSION: Negative for central pulmonary emboli with marked hyperinflation Hakan Esparza MD FACR Chest X-Ray 10/25/161806 Signed Impressions: Service Date/Time: Tuesday, October 25, 2016 18:09 - CONCLUSION: Hyperinflation otherwise negative. Hakan Esparza MD FACR Objective Remarks GENERAL: Well-developed, well-nourished in no distress. Appears weak SKIN: Warm and dry. HEAD: Atraumatic. Normocephalic. EYES: Pupils equal and round. No scleral icterus. No injection or drainage. ENT: No nasal bleeding or discharge. Mucous membranes pink and moist. NECK: Trachea midline. No JVD. CARDIOVASCULAR: Regular rate and rhythm. RESPIRATORY: No accessory muscle use. Clear to auscultation. Breath sounds equal bilaterally. GASTROINTESTINAL: Abdomen soft, slightly tender left lower quadrant, nondistended. MUSCULOSKELETAL: Extremities without clubbing, cyanosis, or edema. No obvious deformities. NEUROLOGICAL: Awake and alert. No obvious cranial nerve deficits. Motor grossly within normal limits. Five out of 5 muscle strength in the arms and legs. Normal speech. PSYCHIATRIC: Appropriate mood and affect; insight and judgment normal. A/P Problem List: (1) GI bleed ICD Code: K92.2 Status: Acute (2) NSTEMI (non-ST elevated myocardial infarction) ICD Code: I21.4 Status: Acute (3) Acute exacerbation of inflammatory bowel disease Status: Acute (4) Colitis ICD Code: K52.9 Status: Acute Assessment and Plan GI bleed status post colonoscopy 10/11/16 with the following results 1. Severe nonspecific colitis of the right colon, transverse colon, descending colon. 2. Mild nonspecific colitis of the rectosigmoid and rectum. 3. Stricture of the rectosigmoid. Pathology with active chronic colitis. Workup negative for infectious etiology. Being treated for suspected Crohns with IV Solu-Medrol. Continues to have loose stools. GI has discontinued several offending agents including PPI, mesalamine, Lipitor, Christina-Colace and azithromycin (last dose today). Per GI will start Remicade follow up TB screen. Hepatitis profile negative. Monitor blood counts and transfuse to keep hemoglobin at least 8. CRS following. If symptoms persist or worse, may need segmental resection for definitive diagnosis. Follow-up repeat CT with mild colitis. Repeat BMP and mag in the morning Elevated troponin. Patient denies chest pain. No significant CAD per cardiac catheterization over a year ago. Per cardiology, continue Coreg. Aspirin if no active bleed Elevated BNP with a history of systolic and diastolic heart failure EF 45%. Appears to be compensated at this time. Monitor for overload COPD exacerbation. Continue nebulizations, steroids s/p Zithromax and wean oxygen Hyperglycemia from steroids. A1c 5.8 Elevated BP. Continue Coreg. Monitor with as needed medications. Caution with aggressive BP control secondary to ongoing diarrhea. Discontinue Willett catheter Discharge Planning Not stable for discharge Problem Qualifiers (1) GI bleed: Qualified Code: K92.2 - Gastrointestinal hemorrhage, unspecified gastrointestinal hemorrhage type Jeremy Aldana MD Oct 31, 2016 09:38
[2016-10-31] MEDS ORDERED: cloNIDine HCL 0.1 MG TAB PO PRN (09:45)
[2016-10-31] MEDS ORDERED: ENALAPRILAT 1.25 MG/ML VIAL IV PRN (09:45)
[2016-10-31] MEDS: methylPREDNISolone SOD SUCC 40 MG/1 ML VIAL IV SCH (12:26)
[2016-11-01] VITALS (12 sets, daily range): BP systolic 123–169; BP diastolic 61–72; PULSE 72–90; RESP 17–18; TEMP 97.3–98.2; O2SAT 96–98
[2016-11-01] MEDS: methylPREDNISolone SOD SUCC 40 MG/1 ML VIAL IV SCH ×2 (00:03→11:18)
[2016-11-01] MEDS: SUCRALFATE 1 GM/10 ML CUP PO SCH ×4 (05:53→21:47)
[2016-11-01] MEDS: CHOLESTYRAMINE 4 GM PACKET PO SCH ×3 (05:53→21:49)
[2016-11-01] MEDS: RESP: ALBUTEROL 2.5 MG/IPRATROPIUM 0.5 MG NEB (SCH) INH ×2 (07:45→15:44)
--- NOTE | 2016-11-01 07:55 | HHI.PR ---
Subjective Remarks Follow-up colitis. Still having frequent stools states she is not any better. Discussed with RN Objective Vitals Vital Signs Date Time Temp Pulse Resp B/P Pulse Ox O2 Delivery O2 Flow Rate FiO2 11/01/16 07:47 98 11/01/16 04:00 97.7 74 18 149/67 97 11/01/16 00:00 98.1 73 18 123/62 96 10/31/16 21:37 82 10/31/16 20:49 21 10/31/16 20:00 97.7 77 18 136/64 97 10/31/16 16:00 97.4 82 20 154/74 97 10/31/16 12:00 97.4 75 18 167/82 98 10/31/16 10:00 85 162/78 96 10/31/16 09:15 97 21 10/31/16 08:00 97.7 84 18 198/86 97 I/O 10/31/16 10/31/16 10/31/16 11/01/16 11/01/16 11/01/16 06:59 14:59 22:59 06:59 14:59 22:59 Intake Total 120 ml 600 ml Balance 120 ml 600 ml Intake Oral 120 ml 600 ml IV Total 0 ml # Voids 4 5 2 1 # Bowel Movements 4 4 Result Diagram: 10/30/16 0710/30/16 0705 Imaging Last Impressions Abdomen/Pelvis CT 10/30/16 0000 Signed Impressions: Service Date/Time: Sunday, October 30, 2016 18:25 - CONCLUSION: Minimal nonspecific air in the common duct.. There is no evidence for colonic obstruction retrograde contrast. Mild colitis is evident. Hakan Esparza MD FACR CT Angiography 10/25/162049 Signed Impressions: Service Date/Time: Tuesday, October 25, 2016 21:39 - CONCLUSION: Negative for central pulmonary emboli with marked hyperinflation Hakan Esparza MD FACR Chest X-Ray 10/25/161806 Signed Impressions: Service Date/Time: Tuesday, October 25, 2016 18:09 - CONCLUSION: Hyperinflation otherwise negative. Hakan Esparza MD FACR Objective Remarks GENERAL: Well-developed, well-nourished in no distress. Appears weak SKIN: Warm and dry. HEAD: Atraumatic. Normocephalic. EYES: Pupils equal and round. No scleral icterus. No injection or drainage. ENT: No nasal bleeding or discharge. Mucous membranes pink and moist. NECK: Trachea midline. No JVD. CARDIOVASCULAR: Regular rate and rhythm. RESPIRATORY: No accessory muscle use. Clear to auscultation. Breath sounds equal bilaterally. GASTROINTESTINAL: Abdomen soft, nontender, nondistended. MUSCULOSKELETAL: Extremities without clubbing, cyanosis, or edema. No obvious deformities. NEUROLOGICAL: Awake and alert. No obvious cranial nerve deficits. Motor grossly within normal limits. Five out of 5 muscle strength in the arms and legs. Normal speech. PSYCHIATRIC: Appropriate mood and affect; insight and judgment normal. A/P Problem List: (1) GI bleed ICD Code: K92.2 Status: Acute (2) NSTEMI (non-ST elevated myocardial infarction) ICD Code: I21.4 Status: Acute (3) Acute exacerbation of inflammatory bowel disease Status: Acute (4) Colitis ICD Code: K52.9 Status: Acute Assessment and Plan GI bleed status post colonoscopy 10/11/16 with the following results 1. Severe nonspecific colitis of the right colon, transverse colon, descending colon. 2. Mild nonspecific colitis of the rectosigmoid and rectum. 3. Stricture of the rectosigmoid. Pathology with active chronic colitis. Workup negative for infectious etiology. Being treated for Crohns with IV Solu-Medrol. Continues to be symptomatic. GI has discontinued several offending agents including PPI, mesalamine, Lipitor, Christina-Colace and azithromycin. GI will start Remicade follow up TB screen. Hepatitis profile negative. Monitor blood counts and transfuse to keep hemoglobin at least 8. CRS following. Follow-up repeat CT with mild colitis. Monitor renal function and lites Elevated troponin. Patient denies chest pain. No significant CAD per cardiac catheterization over a year ago. Per cardiology, continue Coreg. Aspirin if no active bleed Elevated BNP with a history of systolic and diastolic heart failure EF 45%. Appears to be compensated at this time. Monitor for overload COPD exacerbation. Continue nebulizations, steroids s/p Zithromax and wean oxygen Hyperglycemia from steroids. A1c 5.8 Elevated BP. Continue Coreg. Monitor with as needed medications. Caution with aggressive BP control secondary to ongoing diarrhea. Discontinue Willett catheter Discharge Planning Not stable for discharge Problem Qualifiers (1) GI bleed: Qualified Code: K92.2 - Gastrointestinal hemorrhage, unspecified gastrointestinal hemorrhage type Jeremy Aldana MD Nov 01, 2016 07:55 Jeremy Aldana MD Nov 01, 2016 07:55
--- NOTE | 2016-11-01 07:55 | HHI.DCPOC ---
Discharge Care Plan Diagnosis: (1) Colitis Your Health Problems Are: Difficulty with ADL Exercise Tolerance Goals to Promote Your Health * To prevent worsening of your condition and complications * To maintain your health at the optimal level Directions to Meet Your Goals Take your medications as prescribed Follow your dietary instruction Follow activity as directed Keep your appointments as scheduled Take your immunizations and boosters as scheduled If your symptoms worsen call your PCP, if no PCP go to Urgent Care Center or Emergency Room Smoking is Dangerous to Your Health. Avoid second hand smoke Call the 24-hour hour crisis hotline for domestic abuse at Jeremy Aldana MD Nov 01, 2016 07:55
[2016-11-01] MEDS ORDERED: WALKER WHEELS/F1 MIS (07:56)
--- NOTE | 2016-11-01 07:56 | HHI.FF ---
Face to Face Verification Diagnosis: (1) Colitis Physical Therapy Order: Evaluate and Treat, Improve ambulation, Strength and gait training I have seen patient Katie Beard on 11/01/16. My clinical findings support the need for the requested home health care services because: Ltd mobility - disease progression I certify that my clinical findings support that this patient is homebound because: Hx COPD- exertion dyspnea/weakness Unsteady gait/balance Jeremy Aldana MD Nov 01, 2016 07:56
[2016-11-01 08:25] LABS: BICARBONATE 26.7 MEQ/L (21.0-32.0); MAGNESIUM 2.1 MG/DL (1.5-2.5); POTASSIUM 4.2 MEQ/L (3.5-5.1)
--- NOTE | 2016-11-01 08:42 | HHI.GIFU ---
GI Follow-up Note Consult Follow-up Subjective: Patient lying in bed comfortably, no new complaints except no noticeable improvement in bowel frequency or consistency after stopping 5 medications. No pain. Objective: PHYSICAL EXAMINATION: Vitals signs stable No fever HEENT: EOMI ABDOMEN: Soft, nondistended, nontender [employer] COURT REPORTER: alert and oriented times three. Available Data (labs, X- Rays, Procedues) : Labs reviewed. ASSESSMENT/PLAN:Persistent diarrhea in this patient whose colon biopsies are consistent with Crohn's disease. She's not responding well to solumedrol. Will order Remicade. It was a pleasure seeing Katie Beard. Entered by: Micah Mora MD Nov 01, 2016 08:42
[2016-11-01] MEDS: CARVEDILOL 12.5 MG TAB PO SCH ×2 (09:07→21:48)
[2016-11-01] MEDS ORDERED: SODIUM CHLOR 0.9% 250 ML IV PRN (15:45)
[2016-11-01] MEDS ORDERED: HYDROCORTISONE SOD SUCCINATE 100 MG VIAL IV PRN (15:45)
[2016-11-01] MEDS ORDERED: EPINEPHrine HCL (1:1000) 1 MG/ML VIAL OTHER PRN (15:45)
[2016-11-01] MEDS ORDERED: ACETAMINOPHEN 325 MG TAB PO ONE (16:30)
[2016-11-01] MEDS ORDERED: diphenhydrAMINE HCL 25 MG CAP PO ONE (16:30)
[2016-11-01] MEDS ORDERED: [UNRECOGNIZED DRUG - REMARK] IV ONE (17:00)
--- NOTE | 2016-11-01 18:04 | HHI.PR ---
Subjective Remarks C/R Surg afebrile, VSS eating little better feels more positive ? stools Objective - Vital Signs Date Time Temp Pulse Resp B/P Pulse Ox O2 Delivery O2 Flow Rate FiO2 11/01/16 17:39 97.8 77 17 130/61 98 11/01/16 15:44 21 10/30/16 19:45 Room Air 10/28/16 08:05 1.00 Result Diagram: 10/30/16 0705 11/01/16 0720 Objective Remarks PE alert Abd - soft, non-tender, min tympany A/P Assessment and Plan Imp: cont med Rx - remicade added needs stimulation try lomotil if cont diarrhea,may re-scope to check stricture Dung Guillen MD Nov 01, 2016 18:04
[2016-11-01] MEDS: DIPHENOXYLATE/ATROPINE 2.5 MG/0.025 MG TAB PO SCH (21:49)
[2016-11-02] VITALS (14 sets, daily range): BP systolic 122–150; BP diastolic 58–67; PULSE 72–88; RESP 18–20; TEMP 97–98.1; O2SAT 96–99
[2016-11-02] MEDS: RESP: ALBUTEROL 2.5 MG/IPRATROPIUM 0.5 MG NEB (SCH) INH ×3 (00:03→23:35)
[2016-11-02] MEDS: CHLORHEXIDINE GLUCONATE 2 % 1 PACK (2 CLOTHS) TOP SCH (03:09)
[2016-11-02] MEDS: SUCRALFATE 1 GM/10 ML CUP PO SCH ×4 (04:59→22:16)
[2016-11-02] MEDS: DIPHENOXYLATE/ATROPINE 2.5 MG/0.025 MG TAB PO SCH ×3 (05:00→22:16)
[2016-11-02] MEDS: CHOLESTYRAMINE 4 GM PACKET PO SCH ×3 (05:00→22:00)
--- NOTE | 2016-11-02 09:06 | HHI.PR ---
Subjective Remarks Follow-up colitis and COPD. States she is getting better less stool frequency unable to tell me stool consistency. Denies shortness of breath. Encouraged to be active. Discussed with RN Objective Vitals Vital Signs Date Time Temp Pulse Resp B/P Pulse Ox O2 Delivery O2 Flow Rate FiO2 11/02/16 08:09 77 11/02/16 07:59 78 11/02/16 07:32 Room Air 11/02/16 04:00 97.0 74 20 146/63 97 11/02/16 00:05 99 21 11/02/16 00:00 98.0 72 20 134/63 99 11/02/16 00:00 Room Air 11/01/16 20:07 79 11/01/16 20:00 97.9 90 18 140/63 98 11/01/16 18:18 98.2 83 18 136/62 97 11/01/16 17:39 97.8 77 17 130/61 98 11/01/16 17:04 97.7 85 18 158/70 98 11/01/16 16:46 98.1 75 17 146/65 98 11/01/16 15:44 98 21 11/01/16 12:00 97.3 73 18 137/72 98 I/O 11/01/16 11/01/16 11/01/16 11/02/16 11/02/16 11/02/16 06:59 14:59 22:59 06:59 14:59 22:59 Intake Total 360 ml 240 ml 246 ml Balance 360 ml 240 ml 246 ml Intake Oral 360 ml 240 ml 240 ml IV Total 6 ml # Voids 1 1 2 1 # Bowel Movements 1 1 Result Diagram: 10/30/16 0705 11/01/16 0720 Imaging Last Impressions Abdomen/Pelvis CT 10/30/16 0000 Signed Impressions: Service Date/Time: Sunday, October 30, 2016 18:25 - CONCLUSION: Minimal nonspecific air in the common duct.. There is no evidence for colonic obstruction retrograde contrast. Mild colitis is evident. Hakan Esparza MD FACR CT Angiography 10/25/162049 Signed Impressions: Service Date/Time: Tuesday, October 25, 2016 21:39 - CONCLUSION: Negative for central pulmonary emboli with marked hyperinflation Hakan Esparza MD FACR Chest X-Ray 10/25/161806 Signed Impressions: Service Date/Time: Tuesday, October 25, 2016 18:09 - CONCLUSION: Hyperinflation otherwise negative. Hakan Esparza MD FACR Objective Remarks GENERAL: Well-developed, well-nourished in no distress. No signs of dehydration SKIN: Warm and dry. HEAD: Atraumatic. Normocephalic. EYES: Pupils equal and round. No scleral icterus. No injection or drainage. ENT: No nasal bleeding or discharge. Mucous membranes pink and moist. NECK: Trachea midline. No JVD. CARDIOVASCULAR: Regular rate and rhythm. RESPIRATORY: No accessory muscle use. Clear to auscultation. Breath sounds equal bilaterally. GASTROINTESTINAL: Abdomen soft, nontender, nondistended. MUSCULOSKELETAL: Extremities without clubbing, cyanosis, or edema. No obvious deformities. NEUROLOGICAL: Awake and alert. No obvious cranial nerve deficits. Motor grossly within normal limits. Five out of 5 muscle strength in the arms and legs. Normal speech. PSYCHIATRIC: Appropriate mood and affect; insight and judgment normal. A/P Problem List: (1) GI bleed ICD Code: K92.2 Status: Acute (2) NSTEMI (non-ST elevated myocardial infarction) ICD Code: I21.4 Status: Acute (3) Acute exacerbation of inflammatory bowel disease Status: Acute (4) Colitis ICD Code: K52.9 Status: Acute Assessment and Plan Crohns with refractory disease. S/p Remicade ct steroids, questran and lomotil. Monitor renal function and electrolytes with ongoing diarrhea. Patient has mild hyponatremia. Finally improving with less stool frequency. GI bleed secondary to above. Improved. Stable blood counts Elevated troponin. Patient denies chest pain. No significant CAD per cardiac catheterization over a year ago. Per cardiology, continue Coreg. Aspirin if no active bleed Elevated BNP with a history of systolic and diastolic heart failure EF 45%. Appears to be compensated at this time. Monitor for overload COPD exacerbation. Continue nebulizations, steroids s/p Zithromax and wean oxygen Hyperglycemia from steroids. A1c 5.8 Elevated BP. Continue Coreg. Monitor with as needed medications. Caution with aggressive BP control secondary to ongoing diarrhea. Discontinue Willett catheter Discharge Planning Discharge when cleared by GI and CRS possibly in the morning Problem Qualifiers (1) GI bleed: Qualified Code: K92.2 - Gastrointestinal hemorrhage, unspecified gastrointestinal hemorrhage type Jeremy Aldana MD 15, 2017 09:06
[2016-11-02] MEDS: CARVEDILOL 12.5 MG TAB PO SCH ×2 (09:49→22:16)
[2016-11-02] MEDS: methylPREDNISolone SOD SUCC 40 MG/1 ML VIAL IV SCH ×2 (11:13)
--- NOTE | 2016-11-02 11:34 | HHI.PR ---
Subjective Remarks Acute exacerbation Crohn's disease Feels slightly better Objective Vital Signs Date Time Temp Pulse Resp B/P Pulse Ox O2 Delivery O2 Flow Rate FiO2 11/02/16 11:23 84 11/02/16 10:47 88 11/02/16 09:53 78 11/02/16 08:09 77 11/02/16 08:00 98.1 83 20 122/58 96 11/02/16 07:59 78 11/02/16 07:32 Room Air 11/02/16 04:00 97.0 74 20 146/63 97 11/02/16 00:05 99 21 11/02/16 00:00 98.0 72 20 134/63 99 11/02/16 00:00 Room Air 11/01/16 20:07 79 11/01/16 20:00 97.9 90 18 140/63 98 11/01/16 18:18 98.2 83 18 136/62 97 11/01/16 17:39 97.8 77 17 130/61 98 11/01/16 17:04 97.7 85 18 158/70 98 11/01/16 16:46 98.1 75 17 146/65 98 11/01/16 15:44 98 21 11/01/16 12:00 97.3 73 18 137/72 98 I/O 11/01/16 11/01/16 11/01/16 11/02/16 11/02/16 11/02/16 07:00 15:00 23:00 07:00 15:00 23:00 Intake Total 360 ml 240 ml 246 ml Balance 360 ml 240 ml 246 ml Intake Oral 360 ml 240 ml 240 ml IV Total 6 ml # Voids 1 1 2 1 # Bowel Movements 1 1 Result Diagram: 10/30/16 0705 11/01/16 0720 Assessment and Plan Assessment and Plan Continue supportive care Emma Ayon MD Nov 02, 2016 11:33
--- NOTE | 2016-11-02 11:51 | HHI.GIFU ---
GI Follow-up Note Consult Follow-up Subjective: Patient lying in bed comfortably, no new complaints. She received her first infusion of Remicade (infliximab ) yesterday afternoon. Two bowel movements since. No pain. She believes she feels better. Objective: PHYSICAL EXAMINATION: Vitals signs stable No fever HEENT:EOMI ABDOMEN: Soft, nondistended, nontender; good bowel sounds SKIN: no jaundice. CLOTH PRINTER: alert and oriented times three. Available Data (labs, X- Rays, Procedues) : No new labs ASSESSMENT/PLAN:Crohn's disease; finally, it seems her symptoms may be improving , since the Remicade infusion yesterday. A low fiber diet is to be continued. I've been trying to encourage her to walk , but she's been resistant. I've asked her nurse to try to get her up and about. It was a pleasure seeing Katie Beard. Entered by: Micah Mora MD Nov 02, 2016 11:51
[2016-11-02] MEDS ORDERED: MORPHINE SULFATE 8 MG/ML INJ IV PUSH PRN (14:15)
[2016-11-02] MEDS: ACETAMINOPHEN 325 MG TAB PO PRN ×2 (14:17→22:17)
[2016-11-02] MEDS ORDERED: DIPH2.5T14 PO (14:49)
[2016-11-02] MEDS ORDERED: SUCR1S PO (14:49)
[2016-11-02] MEDS ORDERED: PRED20 PO (14:53)
[2016-11-03] VITALS (7 sets, daily range): BP systolic 109–128; BP diastolic 54–69; PULSE 70–79; RESP 18–20; TEMP 97–97.9; O2SAT 95–98
[2016-11-03] MEDS: CHLORHEXIDINE GLUCONATE 2 % 1 PACK (2 CLOTHS) TOP SCH (04:00)
[2016-11-03] MEDS: CHOLESTYRAMINE 4 GM PACKET PO SCH (06:00)
[2016-11-03] MEDS: DIPHENOXYLATE/ATROPINE 2.5 MG/0.025 MG TAB PO SCH ×3 (07:02→21:07)
[2016-11-03] MEDS: SUCRALFATE 1 GM/10 ML CUP PO SCH ×4 (07:02→21:07)
[2016-11-03] MEDS: RESP: ALBUTEROL 2.5 MG/IPRATROPIUM 0.5 MG NEB (SCH) INH ×2 (07:20→16:38)
--- NOTE | 2016-11-03 09:16 | HHI.GIFU ---
GI Follow-up Note Consult Follow-up Subjective: Patient sitting up in bed comfortably, no new complaints except the stools are still frequent and may be slightly firmer. She's been refusing the cholestyramine, but is willing to try colestipol tablets. Objective: PHYSICAL EXAMINATION: Vitals signs stable No fever HEENT: EOMI VICE PRESIDENT OF INSTRUCTION: alert and oriented times three. Available Data (labs, X- Rays, Procedues) : No new labs. ASSESSMENT/PLAN:Crohn's disease without adequate control of diarrhea despite solumedrol. She received her first Remicade infusion on November 02; we'll coordinate her next infusion in two weeks. Meanwhile, we'll change cholestyramine to colestipol. She still hasn't been walking; I've encouraged her again. It was a pleasure seeing Katie Beard. Entered by: Micah Mora MD Nov 03, 2016 09:16
[2016-11-03] MEDS: CARVEDILOL 12.5 MG TAB PO SCH ×2 (09:40→21:07)
[2016-11-03] MEDS: predniSONE 20 MG TAB PO SCH (09:40)
[2016-11-03] MEDS ORDERED: WELC625T2 PO (11:02)
--- NOTE | 2016-11-03 11:06 | HHI.PR ---
Subjective Remarks Follow-up crohn's disease. She wants to go home but already had 3 stools today semi-formed. Denies abdominal pain. Refused Questran. Discussed with RN, patient needs to get up and ambulate Objective Vitals Vital Signs Date Time Temp Pulse Resp B/P Pulse Ox O2 Delivery O2 Flow Rate FiO2 11/03/16 08:02 97.9 72 20 123/56 98 11/03/16 07:21 97 21 11/03/16 05:00 Room Air 11/03/16 05:00 97.0 77 20 125/69 97 11/03/16 00:00 11/02/16 21:07 21 11/02/16 20:00 Room Air 11/02/16 20:00 97.7 80 18 150/67 96 11/02/16 16:00 97.8 80 20 128/58 97 11/02/16 13:06 78 11/02/16 12:02 84 11/02/16 12:00 97.9 81 20 141/64 96 11/02/16 11:23 84 I/O 11/02/16 11/02/16 11/02/16 11/03/16 11/03/16 11/03/16 06:59 14:59 22:59 06:59 14:59 22:59 Intake Total 246 ml 360 ml 240 ml 90 ml Balance 246 ml 360 ml 240 ml 90 ml Intake Oral 240 ml 360 ml 240 ml 90 ml IV Total 6 ml 0 ml # Voids 1 5 2 5 # Bowel Movements 4 2 5 Result Diagram: 10/30/16 0705 11/01/16 0720 Objective Remarks Well-developed well-nourished with no signs of dehydration Regular rate and rhythm Clear to auscultation no wheezes Abdomen soft nontender Oriented 3 nonfocal Procedures None A/P Problem List: (1) GI bleed ICD Code: K92.2 Status: Acute (2) NSTEMI (non-ST elevated myocardial infarction) ICD Code: I21.4 Status: Acute (3) Acute exacerbation of inflammatory bowel disease Status: Acute (4) Colitis ICD Code: K52.9 Status: Acute Assessment and Plan Crohns with refractory disease. S/p Remicade. Improving but still with frequent stools. Refuses Questran and GI has started WelChol continue Lomotil and steroids. Monitor renal function and electrolytes. Patient has mild hyponatremia. Repeat BMP and magnesium in the morning if not discharged GI bleed secondary to above. Improved. Stable blood counts Elevated troponin. Patient denies chest pain. No significant CAD per cardiac catheterization over a year ago. Per cardiology, continue Coreg. Aspirin if no active bleed Elevated BNP with a history of systolic and diastolic heart failure EF 45%. Appears to be compensated at this time. Monitor for overload COPD exacerbation. Continue nebulizations, steroids s/p Zithromax and wean oxygen Hyperglycemia from steroids. A1c 5.8 Elevated BP. Improved. Continue Coreg. Monitor with as needed medications. Caution with aggressive BP control secondary to ongoing diarrhea. Discharge Planning Discharge when cleared by GI and CRS possibly in the morning Problem Qualifiers (1) GI bleed: Qualified Code: K92.2 - Gastrointestinal hemorrhage, unspecified gastrointestinal hemorrhage type Jeremy Aldana MD Nov 03, 2016 11:06
[2016-11-03] MEDS: COLESEVELAM HCL 625 MG TAB PO SCH ×2 (16:10→18:12)
[2016-11-03] MEDS: ACETAMINOPHEN 325 MG TAB PO PRN (21:13)
[2016-11-04] VITALS: BP 115/52; PULSE 80; RESP 18; TEMP 97.9; O2SAT 96
[2016-11-04 00:56] VITALS: O2SAT 99
[2016-11-04 04:00] VITALS: BP 112/54; PULSE 65; RESP 18; TEMP 97.8; O2SAT 96
[2016-11-04] MEDS: DIPHENOXYLATE/ATROPINE 2.5 MG/0.025 MG TAB PO SCH ×2 (05:41→13:03)
[2016-11-04] MEDS: SUCRALFATE 1 GM/10 ML CUP PO SCH ×2 (05:41→10:34)
[2016-11-04 07:00] LABS: BICARBONATE 25.6 MEQ/L (21.0-32.0); MAGNESIUM 2.1 MG/DL (1.5-2.5); POTASSIUM 3.8 MEQ/L (3.5-5.1)
[2016-11-04 08:00] VITALS: BP 157/65; PULSE 68; RESP 18; TEMP 98.1; O2SAT 98
[2016-11-04] MEDS: predniSONE 20 MG TAB PO SCH (08:28)
[2016-11-04] MEDS: CARVEDILOL 12.5 MG TAB PO SCH (08:28)
[2016-11-04] MEDS: COLESEVELAM HCL 625 MG TAB PO SCH ×2 (08:28→13:03)
[2016-11-04] MEDS ORDERED: POTASSIUM CHLORIDE 20 MEQ CONTROLLED RELEASE TAB PO ONE (08:45)
[2016-11-04] MEDS: RESP: ALBUTEROL 2.5 MG/IPRATROPIUM 0.5 MG NEB (SCH) INH ×2 (09:11)
[2016-11-04] MEDS: ACETAMINOPHEN 325 MG TAB PO PRN (10:34)
--- NOTE | 2016-11-04 11:37 | HHI.GIFU ---
GI Follow-up Note Consult Follow-up Subjective: Patient lying in bed comfortably, no new complaints except anxious to go home. She says stools are more formed and may be less frequent. Objective: PHYSICAL EXAMINATION: Vitals signs stable No fever HEENT:EOMI BIOMEDICAL ANALYTICAL SCIENTIST: No focal deficits; alert and oriented times three. Available Data (labs, X- Rays, Procedues) : Today's labs noted. ASSESSMENT/PLAN:Crohn's disease; some improvement prednisone 40mg/day, Remicade , Welchol 625mg, 2 tab tid. OK to d/c home and will F/U with Dr. Proctor. Next Remicade infusion is due November 08. It was a pleasure seeing Katie Beard. . Entered by: Micah Mora MD Nov 04, 2016 11:36
--- NOTE | 2016-11-04 11:47 | HHI.DS ---
Discharge Summary Admission Date Oct 25, 2016 at 23:05 Discharge Date: Nov 04, 2016 Admitting Diagnosis SOB, NSTEMI (1) GI bleed ICD Code: K92.2 Diagnosis: Principal (2) NSTEMI (non-ST elevated myocardial infarction) ICD Code: I21.4 Diagnosis: Principal (3) Acute exacerbation of inflammatory bowel disease Diagnosis: Principal (4) Colitis ICD Code: K52.9 Procedures None Brief History - From Admission 71 y/o woman arrived to ED with c/o rectal bleeding X two weeks following a colonoscopy. No fever chills, lightheadedness. Trop elevated and EKG with ischemia. CBC/BMP: 11/04/16 0548 Significant Findings Laboratory Tests Test 11/04/16 05:48 Sodium Level 134 MEQ/L (136-145) Creatinine 0.41 MG/DL (0.50-1.00) Imaging Last Impressions Abdomen/Pelvis CT 10/30/16 0000 Signed Impressions: Service Date/Time: Sunday, October 30, 2016 18:25 - CONCLUSION: Minimal nonspecific air in the common duct.. There is no evidence for colonic obstruction retrograde contrast. Mild colitis is evident. Hakan Esparza MD FACR CT Angiography 10/25/162049 Signed Impressions: Service Date/Time: Tuesday, October 25, 2016 21:39 - CONCLUSION: Negative for central pulmonary emboli with marked hyperinflation Hakan Esparza MD FACR Chest X-Ray 10/25/16 1807 Signed Impressions: Service Date/Time: Tuesday, October 25, 2016 18:09 - CONCLUSION: Hyperinflation otherwise negative. Hakan Esparza MD FACR PE at Discharge Well-developed well-nourished with no signs of dehydration Regular rate and rhythm Clear to auscultation no wheezes Abdomen soft nontender Oriented 3 nonfocal Transfer Summary 71 y/o woman arrived to ED with c/o rectal bleeding X two weeks following a colonoscopy. No fever chills, lightheadedness. Trop elevated and EKG with ischemia. 10/27: Patient subjectively feeling better. No further GI bleed. Appreciate consult by GI Dr. Sullivan. As per his notes, colonoscopy was attempted in July; however, the patient was found to have a stricture of the descending sigmoid region. Gastrografin enema revealed the possibility of colitis in the right and transverse colon with a stricturing of the left colon as mentioned above. Biopsies apparently were consistent with either an infectious process or inflammatory bowel disease. She was referred to the colorectal surgeon, Dr. Guillen, who did perform colonoscopy and the patient had moderate to severe right -sided colitis noted and biopsy again suspicious for inflammatory bowel disease. Apparently she was placed on Apriso therapy but did not respond. Infectious workup was apparently negative including a negative C. difficile and Giardia Patient had been placed on IV Solu-Medrol and mesalamine for exacerbation of IBD. Hospital Course Presented with GIB 2/2 Crohns with refractory disease. She remained hemodynamically stable with stable blood counts no repeat endoscopy was required. She had persistent diarrhea improved after receiving Remicade. She will be discharged home in stable condition to continue prednisone, WelChol and Remicade with Dr. Proctor . She was also evaluated by cardiology secondary to elevated troponin. Patient denies chest pain and had no significant CAD per cardiac catheterization over a year ago. Recommended medical management. She also had COPD exacerbation improved with nebulization, steroids and Zithromax and was weaned off oxygen. Pt Condition on Discharge: Stable Discharge Disposition: Disch w/ Home Health Serv Discharge Time: > 30 minutes Discharge Instructions DIET: Follow Instructions for: As Tolerated, No Restrictions Activities you can perform: Regular-No Restrictions Activities to Avoid: Driving Follow up Referrals: Colorectal Surgery - 1 Week Gastroenterology - 1 Week PCP Follow-up - 2-3 Days New Medications: Walker with Front Wheels (Walker with Front Wheels) 1 Mis Mis 1 EA .ROUTE DIRECTED #1 Ref 0 EA Colesevelam (Welchol) 625 Mg Tab 1250 MG PO TIDPC Bowel Management #90 TAB Prednisone (Prednisone) 20 Mg Tab 40 MG PO DAILY Take 2 pills once a day for one week then 1 pill once a for one week Control Inflammation #21 TAB Sucralfate Liq (Sucralfate Liq) 1 Gm/10 Ml Heidi 1 GM PO ACHS Manage Heartburn #120 GM Continued Medications: Albuterol 18 GM Inh (Ventolin Hfa 18 GM Inh) 90 Mcg/Act Aer 2 PUFF INH Q6H PRN SHORTNESS OF BREATH #1 Ref [address] (Aspirin Adult Low Strength) 81 Mg Tabdr 81 MG PO DAILY TAB Budesonide-Formoterol Inh (Symbicort Inh) 160-4.5 Mcg/Act Aero 2 PUFF INH Q12HR #1 Ref 0 INHALER Carvedilol (Coreg) 12.5 Mg Tab 12.5 MG PO DAILY #60 Ref 0 TAB Fluticasone Nasal [place] (Flonase Nasal [place]) 50 Mcg/Act [place] 2 SPR EACH NARE DAILY PRN ALLERGIES #1 Ref 0 BOTTLE Ipratropium-Albuterol Neb (Duoneb) 0.5-2.5 Mg/3 Ml Neb 3 ML NEB QID PRN SHORTNESS OF BREATH #30 Ref 0 NEBULE Additional Information Refused home healthcare Physical therapy I spent 35 minutes [id number] with the patient or on the gill discussing the patient's disposition, prognosis, and plan of care with patient's caregivers. Over half the time spent was devoted to counseling the patient regarding placement in coordinating care with caregivers and case management. Jeremy Aldana MD Nov 04, 2016 11:47
[2016-11-04 12:00] VITALS: BP 115/53; PULSE 65; RESP 18; TEMP 98.3; O2SAT 98
== END 2016-11-04 15:06 | disposition home or self-care (01) | DRG 385 ==
LOC: NEPE 18:00 → NEDA 23:05 → HIME 10-26 00:45 → HCIS 10-27 13:20 → N04A 10-29 21:01
PROVIDERS: ADMIT Internal Medicine; ATTEND Internal Medicine
PROC: 0T9B70Z Drainage of Bladder with Drainage Device, Via Natural or Artificial Opening (ICD-10-PCS; principal; 2016-10-26)
DX: K50.911 Crohn's disease, unspecified, with rectal bleeding (principal); I21.4 Non-ST elevation (NSTEMI) myocardial infarction; K56.69 Other intestinal obstruction; E87.3 Alkalosis; R06.89 Other abnormalities of breathing; I42.9 Cardiomyopathy, unspecified; I50.42 Chronic combined systolic (congestive) and diastolic (congestive) heart failure; E87.1 Hypo-osmolality and hyponatremia; J44.1 Chronic obstructive pulmonary disease with (acute) exacerbation; I11.0 Hypertensive heart disease with heart failure; R09.02 Hypoxemia; R06.82 Tachypnea, not elsewhere classified; Z87.891 Personal history of nicotine dependence; M19.90 Unspecified osteoarthritis, unspecified site; F32.9 Major depressive disorder, single episode, unspecified; E78.5 Hyperlipidemia, unspecified; R62.7 Adult failure to thrive; I25.10 Atherosclerotic heart disease of native coronary artery without angina pectoris; T38.0X5A Adverse effect of glucocorticoids and synthetic analogues, initial encounter; R73.9 Hyperglycemia, unspecified; Y92.239 Unspecified place in hospital as the place of occurrence of the external cause; Z23 Encounter for immunization
CPT/HCPCS: 36600; 71010; 71275; 74176; 80048; 80053; 80074; 81001; 82550; 82805; 83735; 83880; 84100; 84484; 85007; 85014; 85018; 85025; 85027; 85610; 85730; 86480; 86850; 86900; 86901; 86920; 87040; 87493; 87641; 90732; 93005; 93306; 94640; 94664; 96374; C9113; J1650; J1745; J1956; J2270; J2920; J2930; J7030; J7050; J7512; Q9963; Q9967

== ENCOUNTER 2018-02-12 14:08 | Observation (INO) ==
[2018-02-12] MEDS ORDERED: MethylPREDNISolone Sod Succinate Inj 125 MG/2 ML Vial IV.PUSH ONE (14:30)
--- NOTE | 2018-02-12 14:48 | ED ---
HPI General Chief Complaint: Respiratory Symptoms Stated Complaint: Sob Time Seen by Provider: 02/12/18 14:27 Source: patient Mode of arrival: ambulatory Limitations: no limitations History of Present Illness HPI Narrative: Patient is a 72-year-old female presenting to the emerge department for evaluation of shortness of breath. Patient states it started 3- 4 days ago, getting progressively worse. She is attempted to use her albuterol inhaler with no improvement. She last used a few hours prior to arrival. She reports that she has a hard time breathing through her nose as well. She denies any fever, chills, nausea, vomiting, chest pain. She reports a history of COPD. She is no longer smoking, she quit several years ago. Symptom onset was gradual, symptoms are moderate nature. No alleviating factors, no known exacerbating factors. Onset (ago): day(s) Duration: constant Severity: moderate Relieving factors: nothing Associated symptoms: Reports shortness of breath Related Data Allergies Allergy/AdvReac Type Severity Reaction Status Date / Time No Known Allergies Allergy Unknown Uncoded 05/23/17 17:44 Review of Systems ROS: all other systems reviewed are negative PMFSH History History Provided By: Patient and Medical Record Medical History Medical History CHF (congestive heart failure) (Acute) COPD (chronic obstructive pulmonary disease) (Acute) Hypertension (Acute) NSTEMI (non-ST elevated myocardial infarction) (Acute) Social History Social History Substance History: No History of Abuse Second Hand Smoke Exposure: No Smoking Status: Former smoker Tobacco Type: Cigarettes How Often Do You Have a Drink Containing Alcohol: Monthly or less Recent Travel in [facility] within the Last 8 Weeks: No Recent Out of Country Travel within the Last 8 Weeks: No Exam Narrative Exam Narrative: GENERAL: Well-developed, well-nourished, alert elderly female presenting in no acute distress. SKIN: Focused skin assessment warm/dry. HEAD: Atraumatic. Normocephalic. EYES: Pupils equal and round. No scleral icterus. No injection or drainage. ENT: No nasal bleeding or discharge. Mucous membranes pink and moist. NECK: Trachea midline. No JVD. CARDIOVASCULAR: Regular rate and rhythm. No murmur appreciated. RESPIRATORY: No accessory muscle use. Diminished throughout. GASTROINTESTINAL: Abdomen soft, non-tender, nondistended. Hepatic and splenic margins not palpable. MUSCULOSKELETAL: No obvious deformities. No clubbing. No cyanosis. No edema. NEUROLOGICAL: Awake and alert. No obvious cranial nerve deficits. Motor grossly within normal limits. Normal speech. PSYCHIATRIC: Appropriate mood and affect; insight and judgment normal. Course Initial Documented Vital Signs Temperature 98.5 F 02/12/18 14:13 Pulse Rate 75 02/12/18 14:13 Respiratory Rate 22 02/12/18 14:13 Blood Pressure 185/84 H 02/12/18 14:13 Pulse Oximetry 97 02/12/18 14:13 Last Documented Vital Signs Temperature 98.5 F 02/12/18 14:13 Pulse Rate 68 02/12/18 15:45 Respiratory Rate 18 02/12/18 15:45 Blood Pressure 185/84 H 02/12/18 14:13 Pulse Oximetry 97 02/12/18 14:13 Medical Decision Making MDM Narrative Medical decision making narrative: Patient is a 72-year-old female that presented to emerge department with a chief complaint of shortness of breath. Labs and imaging ordered and pending. Nebulizers and Solu-Medrol ordered. Initial chest x-ray showed abnormality and recommended CT scan. CT scan of the chest was ordered. Labs reviewed, no acute findings identified. CT scan shows parenchymal scarring in the anterolateral right upper chest. CT scan in 3 months was recommended. Went to patient's room to discuss findings with her and her son. Her son was not present for the initial assessment, he states that she came to the emergency department because she had left-sided facial drooping and slurred speech on and off for the last 3 days. He states that the primary doctor noticed that her face was drooping and want her to be evaluated in the emergency department. Patient did not voice these concerns on arrival. Patient still appears to be unconcerned. CT scan of the brain and EKG ordered. CT shows chronic changes. EKG reviewed by my attending physician. Patient will be admitted under observation for TIA. Medical Screen Exam Complete: Yes Emergency Medical Condition: Yes Differential Diagnosis Differential Diagnosis: Bronchitis versus pneumonia versus COPD exacerbation versus other Medical Records Medical records reviewed: Yes I reviewed the patient's medical records. Lab Data Result diagrams: 02/12/18 15:11 02/12/18 15:11 Lab Results 02/12/18 02/12/18 Range/Units 15:11 15:11 WBC 8.6 (4.0-11.0) th/mm3 RBC 4.96 (4.00-5.30) mil/mm3 Hgb 14.3 (11.6-15.3) gm/dL Hct 42.4 (35.0-46.0) % MCV 85.5 (80.0-100.0) fL MCH 28.9 (27.0-34.0) pg MCHC 33.8 (32.0-36.0) % RDW 15.0 (11.6-17.2) % Plt Count 150 (150-450) th/mm3 MPV 9.5 (7.0-11.0) fL Neut % (Auto) 66.7 (16.0-70.0) % Lymph % (Auto) 21.0 (9.0-44.0) % Harnett % (Auto) 8.8 H (0.0-8.0) % Eos % (Auto) 2.6 (0.0-4.0) % Baso % (Auto) 0.9 (0.0-2.0) % Neut # (Auto) 5.7 (1.8-7.7) th/mm3 Lymph # (Auto) 1.8 (1.0-4.8) th/mm3 Harnett # (Auto) 0.8 (0.0-0.9) th/mm3 Eos # (Auto) 0.2 (0.0-0.4) th/mm3 Baso # (Auto) 0.1 (0.0-0.2) th/mm3 WBC Differential . Differential Comment Auto diff final Sodium 141 (136-145) meq/L Potassium 4.1 (3.5-5.1) meq/L Chloride 107 (98-107) meq/L Carbon Dioxide 26.9 (21.0-32.0) meq/L Anion Gap 7 (5-15) meq/L BUN 19 H (7-18) mg/dL Creatinine 0.83 (0.50-1.00) mg/dL Estimated GFR 68 L (>89) mL/min Random Glucose 122 H (74-106) mg/dL Calcium 8.7 (8.5-10.1) mg/dL Magnesium 2.3 (1.5-2.5) mg/dL Total Bilirubin 0.2 (0.2-1.0) mg/dL AST 27 (15-37) U/L ALT 25 (10-53) U/L Alkaline Phosphatase 88 (45-117) U/L Total Protein 7.7 (6.4-8.2) g/dL Albumin 3.6 (3.4-5.0) g/dL Imaging Data Radiologist's impression: Chest X-Ray 02/12/18 14:30 CONCLUSION: Nodular density overlying the right lung. CT scan of chest recommended. Chest CT 02/12/18 15:11 CONCLUSION: 1. Plain film density appears to correspond to an area of pleural parenchymal scarring in the anterolateral right upper chest. This is overtly benign but I would recommend a follow-up CT of the chest without contrast in 3 months to ensure stability/resolution. 2. Biapical emphysematous changes. 3. Very small pericardial effusion. 4. Minimal pneumobilia probably related to prior surgical intervention. Patient is status post cholecystectomy. 5. Mild diverticular disease in the visualized portions of the upper colon. Head CT 02/12/18 16:41 CONCLUSION: 1. Chronic changes with multiple right basal ganglia lacunar type infarcts, left external capsule lacunar type infarct and an old right cerebellar infarct. 2. Nothing acute. . Discharge Plan Discharge Disposition Patient Disposition: 30 Still Patient Discharge Condition Condition: Stable Discharge Details Diagnosis: Transient ischemic attack (TIA) Physicians Team ED Provider: Pam Kumar ED Midlevel Provider: Mica Laguna Primary Care Provider: UNKNOWN, Discharge Interventions Interventions: Vital Signs Last Done: 02/12/18 14:57 Status ED Status: With Doctor
--- NOTE | 2018-02-12 15:07 | XR ---
EXAM DATE: 02/12/2018 3:01 PM EDT AGE/SEX: 72 years / Female INDICATIONS: Short of breath. CLINICAL DATA: This is the patient's initial encounter. Patient reports that signs and symptoms have been present for 3 days and indicates a pain score of 0/10. MEDICAL/SURGICAL HISTORY: Chronic obstructive pulmonary disease. None. COMPARISON: [facility] [place], CT PULMONARY ANGIOGRAM, 10/25/2016. . FINDINGS: Nodular density overlying the right lateral midlung region. Slight eventration of the medial right diaphragm. No significant effusion. Cardiac contours are [employer].. CONCLUSION: Nodular density overlying the right lung. CT scan of chest recommended. Electronically signed by: Harris Chino MD 02/12/2018 3:06 PM EDT
[2018-02-12 15:37] LABS: Baso # (Auto) 0.1 th/mm3 (0.0-0.2); Baso % (Auto) 0.9 % (0.0-2.0); Eos # (Auto) 0.2 th/mm3 (0.0-0.4); Eos % (Auto) 2.6 % (0.0-4.0); Hematocrit 42.4 % (35.0-46.0); Hemoglobin 14.3 gm/dL (11.6-15.3); Lymph # (Auto) 1.8 th/mm3 (1.0-4.8); Mean Corpuscular HGB Conc 33.8 % (32.0-36.0); Mean Corpuscular Hemoglobin 28.9 pg (27.0-34.0); Mean Corpuscular Volume 85.5 fL (80.0-100.0); Mean Platelet Volume 9.5 fL (7.0-11.0); Mono # (Auto) 0.8 th/mm3 (0.0-0.9); Mono % (Auto) 8.8 % (0.0-8.0); Neut # (Auto) 5.7 th/mm3 (1.8-7.7); Neut % (Auto) 66.7 % (16.0-70.0); Platelet Count 150 th/mm3 (150-450); Red Blood Count 4.96 mil/mm3 (4.00-5.30); White Blood Count 8.6 th/mm3 (4.0-11.0)
[2018-02-12 16:07] LABS: Alanine Aminotransferase 25 U/L (10-53); Albumin 3.6 g/dL (3.4-5.0); Alkaline Phosphatase 88 U/L (45-117); Anion Gap 7 meq/L (5-15); Aspartate Aminotransferase 27 U/L (15-37); Blood Urea Nitrogen 19 mg/dL (7-18); Calcium 8.7 mg/dL (8.5-10.1); Carbon Dioxide 26.9 meq/L (21.0-32.0); Chloride 107 meq/L (98-107); Glomerular Filtration Rate 68 mL/min (>89); Glucose,Random 122 mg/dL (74-106); Magnesium 2.3 mg/dL (1.5-2.5); Potassium 4.1 meq/L (3.5-5.1); Sodium 141 meq/L (136-145); Total Protein 7.7 g/dL (6.4-8.2)
--- NOTE | 2018-02-12 16:26 | CT ---
EXAM DATE: 02/12/2018 4:11 PM EDT AGE/SEX: 72 years / Female INDICATIONS: Nodular density on chest x-ray. CLINICAL DATA: This is the patient's initial encounter. Patient reports that signs and symptoms have been present for 1 day and indicates a pain score of 0/10. MEDICAL/SURGICAL HISTORY: Chronic obstructive pulmonary disease. Congestive heart failure. Hypert ension. None. RADIATION DOSE: 9.57 CTDI (mGy) COMPARISON: C, CHEST 1V SINGLE AP, 02/12/2018. . TECHNIQUE: Multiple contiguous axial images were obtained through the chest without contrast. Image s were obtained in suspended respiration using multiple row detector helical technique. Using automa jose g exposure control and adjustment of the mA and/or kV according to patient size, radiation dose was kept as low as reasonably achievable to obtain optimal diagnostic quality images. DICOM format imag e data is available electronically for review and comparison. FINDINGS: Lungs: The density identified on plain film overlying the right mid chest appears to correspond to so me pleural-parenchymal scarring anterolaterally in the right upper lung. This is superimposed on sign ificant biapical emphysematous changes. Otherwise, no confluent infiltrate or suspicious mass lesions . Mediastinum: There is good visualization of the great vessels of the middle mediastinum. No evidenc e of mediastinal or hilar adenopathy/mass. Very small pericardial effusion. Pleurae: No evidence of focal thickening or pleural effusion. Axillae: Unremarkable. Bony Structures: Unremarkable. Miscellaneous: The examination was extended to include the upper abdomen, and both adrenal glands ar e normal in size and configuration. Patient is status post cholecystectomy. Minimal amount of pneumob may. There is some diverticular disease in the visualized portions of the upper colon. Probable 1.5 cm sebaceous type cyst in the superficial subcutaneous tissues of the upper abdomen centrally. CONCLUSION: 1. Plain film density appears to correspond to an area of pleural parenchymal scarring in the bertha lateral right upper chest. This is overtly benign but I would recommend a follow-up CT of the chest w ithout contrast in 3 months to ensure stability/resolution. 2. Biapical emphysematous changes. 3. Very small pericardial effusion. 4. Minimal pneumobilia probably related to prior surgical intervention. Patient is status post nehemiah cystectomy. 5. Mild diverticular disease in the visualized portions of the upper colon. Electronically signed by: Jonathan Caceres MD 02/12/2018 4:24 PM EDT
[2018-02-12] MEDS ORDERED: Sodium Chlor 0.9% Inj 500 ML IV.SIG SCH (17:00)
--- NOTE | 2018-02-12 17:31 | CT ---
EXAM DATE: 02/12/2018 5:25 PM EDT AGE/SEX: 72 years / Female INDICATIONS: Intermittant left sided facial droop and slurred speech for several days CLINICAL DATA: This is the patient's initial encounter. Patient reports that signs and symptoms have been present for 2 days and indicates a pain score of 0/10. MEDICAL/SURGICAL HISTORY: Chronic obstructive pulmonary disease. Hypertension. None. RADIATION DOSE: 48.70 CTDI (mGy) COMPARISON: No prior exams available for comparison. TECHNIQUE: CT of the head without contrast. Using automated exposure control and adjustment of the mA and/or kV according to patient size, radiation dose was kept as low as reasonably achievable to ob tain optimal diagnostic quality images. DICOM format image data is available electronically for revi ew and comparison. FINDINGS: Cerebrum: The ventricles are normal for age. Symmetric bifrontal parietal cortical atrophy. Old lac unar type infarcts in the right basal ganglia and left external capsule. No evidence of midline shift , mass lesion, hemorrhage or acute infarction. No extraaxial fluid collections are seen. Posterior Fossa: Old right posterior lateral cerebellar infarct. The 4th ventricle is midline. The cerebellopontine angle is unremarkable. Extracranial: The visualized portion of the orbits is intact. Skull: The calvaria is intact. No evidence of skull fracture. CONCLUSION: 1. Chronic changes with multiple right basal ganglia lacunar type infarcts, left external capsule la cunar type infarct and an old right cerebellar infarct. 2. Nothing acute. . Electronically signed by: Jonathan Caceres MD 02/12/2018 5:30 PM EDT
[2018-02-12] MEDS ORDERED: ALBUTEROL SULFATE INHALATION PRN (18:59)
[2018-02-12] MEDS ORDERED: Bisacodyl 10 MG Supp RECTAL PRN (19:14)
--- NOTE | 2018-02-12 19:18 | P.HPIM ---
History of Present Illness Primary Care Physician: UNKNOWN History of Present Illness: This is a 72 year old female w/ a PMH of HTN, COPD, CHF (Echo 10/27/16 w/ EF 40-45 %) and h/o NSTEMI who presented to the ER for c/o SOB. Pt poor historian, but states symptoms started approx 3 days ago. Has been using home Nebulizer w/ minimal improvement. Denies fever or chills, no cough or sick contacts. On arrival, BP 185/84, HR 75, O2 sat 97% on RA, Afebrile. CBC unremarkable. Chemistry essentially unremarkable except for BUN 19, GFR 68. CXR w/ nodular density overlying right lung. CT Chest w/ pleural parenchymal scarring likely benign, but recommendation for repeat imaging in 3 months. While in ER, Son arrived and stated pt also w/ intermittent facial droop and slurred speech for several days. Pt however denies these symptoms. States she feels fine. CT Head w/ multiple right basal ganglia lacunar infarcts, left external capsule infarct and old right cerebellar infarct, no acute findings. Pt w/ no knowledge of previous CVA. States she takes full dose ASA daily. - Diagnosis (1) COPD (chronic obstructive pulmonary disease) (2) Abnormal CT of the chest (3) Transient ischemic attack (TIA) (4) HTN (hypertension) Review of Systems PAST FAMILY HISTORY: Reviewed. No h/o CAD or DM. All other systems reviewed negative except as stated in HPI [facility] - History History Provided By: Patient, Medical Record - Medical History Medical History: Medical History (Last Reviewed 02/12/18 @ 14:51 by DEL Beverly) CHF (congestive heart failure) COPD (chronic obstructive pulmonary disease) Hypertension NSTEMI (non-ST elevated myocardial infarction) - Tobacco History Second Hand Smoke Exposure: No Tobacco Use In Past 30 Days: No Smoking Status: Former smoker Tobacco Type: Cigarettes - Alcohol History How Often Do You Have a Drink Containing Alcohol: Monthly or less - Substance Use History Substance History: No History of Abuse - Travel History Recent Travel in the [place] Within the Last 8 Weeks: No Recent Travel Out of the Country Within the Last 8 Weeks: No - Immunization History Tetanus Immunization: Unsure Medications and Allergies Active Medications: Active Medications Acetaminophen (Tylenol) 650 mg PO Q4H PRN PRN Reason: Temp > 100.4 Al Hydroxide/Mg Hydroxide (Milk Of Magnesia Liq) 30 ml PO Q12H PRN PRN Reason: Mild Constipation Albuterol (Duoneb Neb (Prn)) 1 ampul NEB Q2HR NEB PRN PRN Reason: SOB/WHEEZING Albuterol (Duoneb Neb (Elizabeth)) 1 ampul NEB Q4HR WHILE AWAKE NEB ELIZABETH Aspirin (Ecotrin) 325 mg PO DAILY ELIZABETH Bisacodyl (Dulcolax Supp) 10 mg RECTAL DAILY PRN PRN Reason: SEVERE CONSITIPATION Budesonide/Formoterol Fumarate (Symbicort 160/4.5 Mcg Inh) 2 puff INH BID ELIZABETH Guaifenesin (Mucinex Er) 600 mg PO BID ELIZABETH Sodium Chloride (Ns Inj) 500 mls @ 0 mls/hr IV.SIG BOLUS ELIZABETH Sodium Chloride (Ns Inj) 1,000 mls @ 100 mls/hr IV.CONT .Q10H ELIZABETH Lactulose (Lactulose Liq) 30 ml PO DAILY PRN PRN Reason: SEVERE CONSITIPATION Methylprednisolone Sodium Succinate (Solumedrol Inj) 40 mg IV.PUSH Q6H [facility] Non-Formulary Medication (Albuterol Sulfate) 1 puff INHALATION Q6H PRN PRN Reason: Shortness Of Breath Ondansetron HCl (Zofran Inj) 4 mg IV.PUSH Q6H PRN PRN Reason: NAUSEA OR VOMITING Pravastatin Sodium (Pravachol) 40 mg PO DAILY [facility] Senna/Docusate Sodium (Christina-Colace) 1 tab PO BID [facility] Sennosides (Senokot) 17.2 mg PO Q12H PRN PRN Reason: Moderate Constipation Allergies Allergy/AdvReac Type Severity Reaction Status Date / Time No Known Allergies Allergy Unknown Uncoded 05/23/17 17:44 Home Medications Medication Instructions Recorded Confirmed Type albuterol sulfate [Ventolin HFA] 1 puff INHALATION Q6H PRN 02/12/18 02/12/18 History Exam Vital signs: Vital Signs 02/12/18 14:13 02/12/18 15:16 02/12/18 15:45 Temperature 98.5 F Pulse Rate 75 66 68 Respiratory Rate 22 18 18 Blood Pressure 185/84 H Pulse Oximetry 97 Intake & Output 02/12/18 02/12/18 02/13/18 06:59 18:59 06:59 Weight 63.503 kg Narrative: PE: GENERAL: Pleasant middle aged white female in no acute distress. SKIN: Focused skin assessment warm and dry. HEENT: PERRLA, EOMI. No scleral icterus or conjunctival pallor. No lid lag or facial droop. CARDIOVASCULAR: Regular rate and rhythm. No obvious murmurs to auscultation. No chest tenderness to palpation. RESPIRATORY: No obvious rhonchi, occasional wheezing. Breath sounds equal bilaterally. GASTROINTESTINAL: Abdomen soft, non-tender, nondistended. BS normal. MUSCULOSKELETAL: Extremities without clubbing, cyanosis, or edema. No obvious deformities. NEUROLOGICAL: Awake, alert and oriented x4. No focal neurologic deficits. Moving both upper and lower extremities spontaneously. PSYCHIATRIC: Appropriate mood and affect. Insight and judgment normal. Results - Labs CBC & Chem 7: 02/12/18 15:11 02/12/18 15:11 Labs: Short CBC 02/12/18 Range/Units 15:11 WBC 8.6 (4.0-11.0) th/mm3 Hgb 14.3 (11.6-15.3) gm/dL Hct 42.4 (35.0-46.0) % Plt Count 150 (150-450) th/mm3 BMP 02/12/18 15:11 Sodium 141 Potassium 4.1 Chloride 107 Carbon Dioxide 26.9 BUN 19 H Creatinine 0.83 Calcium 8.7 Liver Function 02/12/18 Range/Units 15:11 Total Bilirubin 0.2 (0.2-1.0) mg/dL AST 27 (15-37) U/L ALT 25 (10-53) U/L Alkaline Phosphatase 88 (45-117) U/L Albumin 3.6 (3.4-5.0) g/dL - Imaging Impressions Chest X-Ray 02/12/18 14:30 CONCLUSION: Nodular density overlying the right lung. CT scan of chest recommended. Chest CT 02/12/18 15:11 CONCLUSION: 1. Plain film density appears to correspond to an area of pleural parenchymal scarring in the anterolateral right upper chest. This is overtly benign but I would recommend a follow-up CT of the chest without contrast in 3 months to ensure stability/resolution. 2. Biapical emphysematous changes. 3. Very small pericardial effusion. 4. Minimal pneumobilia probably related to prior surgical intervention. Patient is status post cholecystectomy. 5. Mild diverticular disease in the visualized portions of the upper colon. Head CT 02/12/18 16:41 CONCLUSION: 1. Chronic changes with multiple right basal ganglia lacunar type infarcts, left external capsule lacunar type infarct and an old right cerebellar infarct. 2. Nothing acute. . Caprini VTE Risk Assessment Caprini VTE Risk Assessment: No/Low Risk (score <= 1) Caprini Risk Assessment Model: Point Value = 1 Point Value = 2 Point Value = 3 Point Value = 5 Age 41-60 Minor surgery BMI > 25 kg/m2 Swollen legs Varicose veins or History of unexplained or recurrent spontaneous Oral contraceptives or hormone replacement Sepsis (< 1 month) Serious lung disease, including pneumonia (< 1 month) Abnormal pulmonary function Acute myocardial infarction Congestive heart failure (< 1 month) History of inflammatory bowel disease Medical patient at bed rest Age 61-74 Arthroscopic surgery Major open surgery (> 45 min) Laparoscopic surgery (> 45 min) Malignancy Confined to bed (> 72 hours) Immobilizing plaster cast Central venous access Age >= 75 History of VTE Family history of VTE Factor V Leiden Prothrombin [id number] Lupus anticoagulant Anticardiolipin antibodies Elevated serum homocysteine Heparin-induced thrombocytopenia Other congenital or acquired thrombophilia Stroke (< 1 month) Elective arthroplasty Hip, pelvis, or leg fracture Acute spinal cord injury (< 1 month) Prophylaxis Regimen: Total Risk Factor Score Risk Level Prophylaxis Regimen 0-1 Low Early ambulation 2 Moderate Order ONE of the following: *Sequential Compression Device (SCD) *Heparin 5000 units SQ BID 3-4 Higher Order ONE of the following medications: *Heparin 5000 units SQ TID *Enoxaparin/Lovenox 40 mg SQ daily (WT < 150 kg, CrCl > 30 mL/min) *Enoxaparin/Lovenox 30 mg SQ daily (WT < 150 kg, CrCl > 10-29 mL/min) *Enoxaparin/Lovenox 30 mg SQ BID (WT < 150 kg, CrCl > 30 mL/min) AND/OR *Sequential Compression Device (SCD) 5 or more Highest Order ONE of the following medications: *Heparin 5000 units SQ TID (Preferred with Epidurals) *Enoxaparin/Lovenox 40 mg SQ daily (WT < 150 kg, CrCl > 30 mL/min) *Enoxaparin/Lovenox 30 mg SQ daily (WT < 150 kg, CrCl > 10-29 mL/min) *Enoxaparin/Lovenox 30 mg SQ BID (WT < 150 kg, CrCl > 30 mL/min) AND *Sequential Compression Device (SCD) Assessment and Plan - Assessment (1) COPD (chronic obstructive pulmonary disease) Code(s): J44.9 - Chronic obstructive pulmonary disease, unspecified Status: Acute (2) Abnormal CT of the chest Code(s): R93.89 - Abnormal findings on diagnostic imaging of other specified body structures Status: Acute (3) Transient ischemic attack (TIA) Code(s): G45.9 - Transient cerebral ischemic attack, unspecified Status: Acute (4) HTN (hypertension) Code(s): I10 - Essential (primary) hypertension Status: Acute - Plan A/P: 1. COPD: Chronic Respiratory Failure w/ Acute Exacerbation. Moderate. S/p Solu-Medrol/DuoNeb w/ persistent wheezing, continue w/ Solu-Medrol, DuoNeb q2h prn and q4h, Symbicort, Mucinex. 2. Abnormal CT Chest: CXR w/ nodular density right lung. CT Chest w/ pleural parenchymal scarring in right upper chest, likely benign, but recommendation for repeat imaging in 3months, images reviewed. Pt instructed to follow up w/ PCP for further imaging as outpatient. 3. TIA: Per Son, pt w/ intermittent facial droop and slurred speech over the last 3 days, pt denies these symptoms. CT Head w/ multiple lacunar infarcts and old right cerebellar infarct, no acute findings. Admit for Observation, Neuro Checks, Check Lipid Profile/Hgb A1c, ASA/Statin, Consult Neurology for further recommendations. Check Echo to eval for possible embolic source. 4. HTN: Uncontrolled, BP 180's, however in light of TIA will allow for permissive HTN, antihypertensives for BP >220. 5. DVT Prophylaxis: SCD/Teds 6. Social work for d/c planning as needed. 7. Case discussed w/ ER physician at length, labs/records/imaging reviewed by me. (1) COPD (chronic obstructive pulmonary disease) Qualifiers: COPD type: unspecified COPD Qualified Code(s): J44.9 - Chronic obstructive pulmonary disease, unspecified
[2018-02-12 22:01] LABS: Bacteria,Urine Rare /hpf; Bilirubin,Urine Negative (Negative); Clarity,Urine Hazy (Clear); Color,Urine Yellow (Yellw/Straw); Glucose,Urine (UA) Negative (Negative); Leukocyte Esterase,Urine Small (Negative); Nitrite,Urine Negative (Negative); Specific Gravity,Urine 1.021 (1.002-1.035); Squamous Epithelial Cell,Urine 9 /hpf (0-5)
[2018-02-12] MEDS: guaiFENesin 600 MG ER Tablet PO SCH (22:21)
[2018-02-12] MEDS: MethylPREDNISolone Sod Succinate Inj 40 MG/ML Vial IV.PUSH SCH (22:21)
[2018-02-12] MEDS: Sod Chloride 0.9% Inj 1,000 ML IV.CONT SCH (22:23)
[2018-02-12] MEDS: Senna/Docusate Sodium 8.6/50 MG Tablet PO SCH (22:32)
[2018-02-12] MEDS: Budesonide-Formoterol 160/4.5 MCG 6 GM Inhaler INH SCH (23:04)
[2018-02-13] MEDS: MethylPREDNISolone Sod Succinate Inj 40 MG/ML Vial IV.PUSH SCH ×4 (03:37→21:01)
[2018-02-13] MEDS: Sod Chloride 0.9% Inj 1,000 ML IV.CONT SCH ×3 (05:40→18:15)
[2018-02-13 06:23] LABS: Alkaline Phosphatase 71 U/L (45-117); Total Protein 6.7 g/dL (6.4-8.2)
[2018-02-13 06:26] LABS: Alanine Aminotransferase 24 U/L (10-53); Albumin 3.3 g/dL (3.4-5.0); Anion Gap 9 meq/L (5-15); Aspartate Aminotransferase 21 U/L (15-37); Blood Urea Nitrogen 21 mg/dL (7-18); Calcium 8.8 mg/dL (8.5-10.1); Carbon Dioxide 24.5 meq/L (21.0-32.0); Chloride 110 meq/L (98-107); Chol/HDL Ratio 3.01 Ratio; Cholesterol 175 mg/dL (120-200); Glomerular Filtration Rate Greater Than 89 mL/min (>89); Glucose,Random 144 mg/dL (74-106); LDL Cholesterol,Calculated 105 mg/dL (0-99); Potassium 4.1 meq/L (3.5-5.1); Sodium 143 meq/L (136-145); Triglycerides 60 mg/dL (42-150)
[2018-02-13] MEDS: guaiFENesin 600 MG ER Tablet PO SCH ×2 (08:29→20:12)
[2018-02-13] MEDS: Budesonide-Formoterol 160/4.5 MCG 6 GM Inhaler INH SCH ×2 (08:30→20:12)
[2018-02-13] MEDS: Senna/Docusate Sodium 8.6/50 MG Tablet PO SCH ×2 (08:30→20:13)
[2018-02-13 08:48] LABS: Baso % (Auto) 0.1 % (0.0-2.0); Hematocrit 38.8 % (35.0-46.0); Hemoglobin 12.9 gm/dL (11.6-15.3); Lymph # (Auto) 0.9 th/mm3 (1.0-4.8); Lymph % (Auto) 10.8 % (9.0-44.0); Mean Corpuscular HGB Conc 33.2 % (32.0-36.0); Mean Corpuscular Hemoglobin 28.6 pg (27.0-34.0); Mean Corpuscular Volume 86.1 fL (80.0-100.0); Mean Platelet Volume 9.6 fL (7.0-11.0); Mono # (Auto) 0.2 th/mm3 (0.0-0.9); Mono % (Auto) 2.1 % (0.0-8.0); Neut # (Auto) 7.1 th/mm3 (1.8-7.7); Platelet Count 142 th/mm3 (150-450); Red Blood Count 4.51 mil/mm3 (4.00-5.30); Red Cell Distribution Width 14.4 % (11.6-17.2); White Blood Count 8.2 th/mm3 (4.0-11.0)
[2018-02-13 09:11] LABS: Free T4 (Free Thyroxine) 1.06 ng/dL (0.76-1.46); Thyroid Stimulating Hormone 0.167 uIU/mL (0.358-3.740)
--- NOTE | 2018-02-13 09:31 | MB ---
cc: Nestor Lepe MD DATE: 02/13/2018 HISTORY OF PRESENT ILLNESS: A 72-year-old right-handed woman with a history of hypertension. She apparently has had some memory problems for a while. She lives at home with her son. I am asked to see her for TIA. She said she came in for shortness of breath. She basically gave negative review of systems except for hypertension; however, she has a history of hypertension, COPD, CHF with an EF of 40%-45%, history of non-STEMI; came in with shortness of breath for about 3 days, using a home nebulizer. Blood pressure was up to 185/84. CT of the chest was basically benign. The son thought that she had a facial droop and slurred speech for several days. CT showed multiple right basal ganglionic infarcts, old right cerebellar infarct; subsequently admitted to the hospital. REVIEW OF SYSTEMS: She sometimes has headaches, but no headache right now. She denied any chest pain, palpitation. She denies any history of hypercholesterolemia, diabetes, AK, stent, atrial fibrillation, coumadin, heart problems, renal, hepatic or pulmonary disease, thyroid disease, lupus, ulcer, cancer, seizure or stroke. SOCIAL HISTORY: Nonsmoker, drinker, lives by herself she said initially, but actually lives with her son she tells me later. FAMILY HISTORY: Negative cancer, seizure or stroke. MEDICATIONS AT HOME: She is just on the inhaler as far as what is listed. Here, she was put on 325 aspirin, some inhalers, Symbicort inhaler; she got some steroids, pravastatin. PHYSICAL EXAMINATION: VITAL SIGNS: On exam today, she has sinus rhythm on the tele. She is afebrile, 66, 16, 153/76-185/84 was her highest blood pressure. There may be a right carotid bruit. CARDIOVASCULAR: Regular rate and rhythm. I did not detect a murmur. NEUROLOGIC: Pupils are equal. Visual romero are full. Extraocular movements intact without nystagmus. Face is symmetric with normal sensation. Tongue was midline. There is no drift. Normal strength in upper and lower extremities bilaterally. Toes downgoing bilaterally. DTRs are trace throughout. Pinprick intact bilateral upper and lower extremities and face. She is not ataxic on [id number]. Speech is fluent. She is not aphasic. She could come up with the day of the week and the month, did not know the year. Short-term memory 0/3 at 3 minutes. LABORATORY DATA: CBC was normal. UA negative. Basic metabolic profile was essentially normal. Troponin negative. LFTs normal. LDL cholesterol 105. She had a hypercoagulable screen done in 2014, which showed her anticardiolipin IgM antibody slightly elevated at 28 and antiphospholipid antibody slightly elevated at 11.9, she had a negative hepatitis screen in the past. She had a blood gas done in 2016; essentially normal. She had a CAT scan of the brain done last night; showed chronic changes, right basal ganglia on review of the films. There appears to be an old right peripheral cerebellar infarct versus a slight small cyst there. There is some old right basal ganglia smattering of small infarcts. IMPRESSION: She appears to have some dementia. We will check with the findings above; a MRA of the neck and inaja of Summers and MRI of the brain and EEG, some additional blood work. We will recheck her echo; her left atrial size was normal a year ago. Holter monitor will be done. I note she did have a cardiac catheterization back in 2014; showed an EF of 35% to 40% at that time. Continue on an aspirin. We may need to treat it with some memory medication in the near future. MD CLAUDIA Joshi/yelitza , 08:08 AM , 08:17 AM
[2018-02-13] MEDS ORDERED: Gadobutrol PF 10 MMOL/10 ML Vial (for RAD) IV.SIG ONE (12:10)
--- NOTE | 2018-02-13 12:19 | MR ---
EXAM DATE: 02/13/2018 12:11 PM EDT AGE/SEX: 72 years / Female INDICATIONS: CVA. Memory loss. CLINICAL DATA: This is the patient's initial encounter. Patient reports that signs and symptoms have been present for 2 days and indicates a pain score of 0/10. MEDICAL/SURGICAL HISTORY: Hypertension. Chronic obstructive pulmonary disease. Congestive hea rt failure. Tonsillectomy. Hysterectomy. COMPARISON: [facility] [place], MR HEAD W & W/O CONTRAST, 02/13/2018. [facility] [place], CT HEAD W/O CONTRAST, 02/12/2018. [facility] [place], MRA NECK W CONTRAST, 02/13/2018. . TECHNIQUE: 3D [id number] MRA was performed. Source images, multiplanar STS MIP, and 3D volum e MIP reconstructions were reviewed. FINDINGS: Anterior and middle cerebral arteries, internal carotid arteries, basilar, vertebral, superior cerebe llar and posterior cerebral arteries, anterior inferior cerebellar arteries are patent. There is mode rate focal stenosis at the origin of the left middle cerebral artery. There is no aneurysm. There is mild atherosclerosis of the posterior cerebral arteries. Atherosclerosis of the basilar and distal ve rtebral arteries noted. CONCLUSION: 1. Atherosclerosis. 2. No aneurysm or occlusion. Electronically signed by: Jerad Hawkins MD 02/13/2018 12:17 PM EDT
--- NOTE | 2018-02-13 12:26 | MR ---
EXAM DATE: 02/13/2018 12:22 PM EDT AGE/SEX: 72 years / Female INDICATIONS: CVA. Memory loss. CLINICAL DATA: This is the patient's initial encounter. Patient reports that signs and symptoms have been present for 2 days and indicates a pain score of 0/10. MEDICAL/SURGICAL HISTORY: Hypertension. Chronic obstructive pulmonary disease. Congestive hea rt failure. Tonsillectomy. Hysterectomy. COMPARISON: [facility], MRA HEAD W/O CONTRAST, 02/13/2018. [facility], MRA NECK W CONTRAST, 02/13/2018. [facility], CT HEAD W/O CONTRAST, 02/12/2018. . TECHNIQUE: Multiplanar, multisequence examination of the brain was performed without and with 10 ml G adavist (gadobutrol) contrast as a single exam dose. FINDINGS: Diffusion weighted images demonstrate no evidence for acute infarction. There is a remote right cereb ellar infarct, patchy periventricular white matter disease and remote basal ganglia lacunar infarcts. There is no evidence of intracranial hemorrhage or mass. There is mild prominence of the CSF spaces greatest in the bifrontal regions and at the vertex. No abnormal areas of enhancement are identified. CONCLUSION: 1. Mild volume loss and white matter disease. 2. No evidence of acute infarct or mass. Electronically signed by: Jerad Hawkins MD 02/13/2018 12:24 PM EDT
--- NOTE | 2018-02-13 12:49 | MR ---
EXAM DATE: 02/13/2018 12:40 PM EDT AGE/SEX: 72 years / Female INDICATIONS: Stroke. Memory loss. CLINICAL DATA: This is the patient's initial encounter. Patient reports that signs and symptoms have been present for 2 days and indicates a pain score of 0/10. MEDICAL/SURGICAL HISTORY: Hypertension. Chronic obstructive pulmonary disease. Congestive hea rt failure. Hysterectomy. Tonsillectomy. COMPARISON: [facility], CTA CAROTID ARTERIES, 11/16/2015. [facility], CT HEAD W/O CONTRAST, 02/12/2018. . TECHNIQUE: 10 ml Gadavist (gadobutrol) contrast infused MRA (single exam dose) of the extracranial circulation was performed using a neurovascular coil. Postprocessing was performed, including rotati ng sub-volume maximum intensity projections of each carotid artery, rotating full-volume maximum inte nsity projections of both carotid arteries, sagittal and coronal sliding thin-slab reformations of ea ch carotid artery, and left oblique sliding thin-slab reformation through the aortic arch to include the origin of the arch branch vessels. FINDINGS: Aortic Arch : There is a 2-vessel origin of the great vessels from the aorta. No evidence of ostia l narrowing. Right Carotid : There stenosis of the right proximal internal carotid artery at the carotid bulb whi ch is not hemodynamically significant. Measures approximately 25% by NASCET criteria. There is approx imately 45-50 % of the left proximal internal carotid artery by NASCET criteria. Left Carotid : The common carotid artery is intact. The carotid bulb has a normal configuration wit hout ulceration or narrowing. The internal carotid artery lumen is smooth without stenosis. The ext ernal carotid artery is intact. Vertebrals : The vertebral arteries have a symmetric diameter. No stenotic lesions are seen. There is atherosclerotic irregularity of the left proximal subclavian artery. CONCLUSION: 1. Atherosclerosis without evidence for hemodynamically significant stenosis at this time. Percent stenosis is calculated using the diameter of the stenotic region over the diameter of the nor mal distal internal carotid artery Electronically signed by: Jerad Hawkins MD 02/13/2018 12:48 PAPITOT
--- NOTE | 2018-02-13 13:38 | ECHRPT ---
Indication: CVA/TIA CONCLUSIONS The left ventricular systolic function is low normal with an estimated ejection fraction in the rang e of 50- 55%. Normal left ventricular size. Wall thickness is normal. The right ventricular size is normal. Posterior mitral valve leaflet prolapse. Moderate mitral valve regurgitation with eccentric jet. There is trace tricuspid valve regurgitation. There is no pericardial effusion. BP: / HR: Rhythm: Sinus MEASUREMENTS (Male / Female) Normal Values Technical Quality:Fair 2D ECHO LV Diastolic Diameter PLAX 5.2 cm 4.2 - 5.9 / 3.9 - 5.3 cm LV Systolic Diameter PLAX 4.0 cm IVS Diastolic Thickness 1.0 cm 0.6 - 1.0 / 0.6 - 0.9 cm LVPW Diastolic Thickness 0.9 cm 0.6 - 1.0 / 0.6 - 0.9 cm LV Relative Wall Thickness 0.4 RV Internal Dim ED PLAX 2.6 cm LVOT Diameter 2.0 cm Aortic Root Diameter 2.7 cm LA Systolic Diameter LX 3.2 cm 3.0 - 4.0 / 2.7 - 3.8 cm M-MODE AV Cusp Separation MM 1.7 cm DOPPLER AV Peak Velocity 120.8 cm/s AV Peak Gradient 5.8 mmHg AV Mean Gradient 4.0 mmHg AV Velocity Time Integral 24.7 cm LVOT Peak Velocity 90.5 cm/s LVOT Peak Gradient 3.3 mmHg LVOT Velocity Time Integral 17.4 cm AV Area Cont Eq vti 2.2 cm AV Area Cont Eq pk 2.4 cm MV Peak Velocity 132.0 cm/s MV Peak Gradient 7.0 mmHg MV Mean Velocity 80.7 cm/s MV Mean Gradient 3.0 mmHg Mitral E Point Velocity 173.5 cm/s Mitral A Point Velocity 141.0 cm/s Mitral E to A Ratio 1.2 LV E' Lateral Velocity 11.3 cm/s Mitral E to LV E' Lateral Ratio 15.4 LV E' Septal Velocity 10.8 cm/s Mitral E to LV E' Septal Ratio 16.1 TR Peak Velocity 164.0 cm/s TR Peak Gradient 10.8 mmHg Right Atrial Pressure 10.0 mmHg Pulmonary Artery Systolic Pressu 20.8 mmHg Right Ventricular Systolic Press 20.8 mmHg PV Peak Velocity 81.2 cm/s PV Peak Gradient 2.6 mmHg FINDINGS LEFT VENTRICLE The left ventricular systolic function is low normal with an estimated ejection fraction in the rang e of 50- 55%. Normal left ventricular size. Wall thickness is normal. RIGHT VENTRICLE The right ventricular size is normal. LEFT ATRIUM The left atrial size is normal. RIGHT ATRIUM The right atrial size is normal. ATRIAL SEPTUM Normal atrial septal thickness without atrial level shunting by limited color doppler interrogation. AORTA The aortic root and proximal ascending aorta are normal in size on limited imaging. MITRAL VALVE Posterior mitral valve leaflet prolapse. Moderate mitral valve regurgitation with eccentric jet. AORTIC VALVE Trileaflet aortic valve. No aortic valve stenosis or regurgitation. TRICUSPID VALVE There is trace tricuspid valve regurgitation. PULMONARY VALVE No pulmonary valve regurgitation or stenosis. VESSELS The inferior vena cava is normal in size. PERICARDIUM There is no pericardial effusion. Abel Gagnon MD (Electronically Signed) Final Date:13 February 2018 13:37
--- NOTE | 2018-02-13 13:59 | P.PN ---
Subjective Interval history: Says she feels improved today. Still with shortness of breath not much wheezing. No fever or chills. Still with some Improved. Not eating much. Complains of mild headaches. No nausea vomiting no diarrhea constipation. Physical Exam Vital signs: Vital Signs 02/12/18 14:13 02/12/18 15:16 02/12/18 15:45 Temperature 98.5 F Pulse Rate 75 66 68 Respiratory Rate 22 18 18 Blood Pressure 185/84 H Pulse Oximetry 97 02/12/18 19:20 02/12/18 20:00 02/12/18 20:53 Temperature 98.7 F Pulse Rate 78 83 78 Respiratory Rate 18 14 16 Blood Pressure 162/74 H 181/78 H Pulse Oximetry 99 95 02/13/18 00:00 02/13/18 03:49 02/13/18 08:44 Temperature 97.7 F 97.4 F L 97.6 F Pulse Rate 78 66 73 Respiratory Rate 18 16 18 Blood Pressure 124/58 L 153/67 H 154/69 H Pulse Oximetry 96 96 95 Intake & Output 02/12/18 02/13/18 02/13/18 18:59 06:59 18:59 Intake Total 1000 / 1000 Balance 1000 / 1000 Weight 63.503 kg 63.503 kg Intake: IV 1000 / 1000 NS Inj 1,000 ML @ 100 mls/hr IV 1000 / 1000 .CONT .Q10H [facility] Rx#:[id number] Other: Weight On Admission 63.503 kg Narrative: GENERAL: Pleasant 72 YO female, appears in no acute distress. CARDIOVASCULAR: Regular rate and rhythm. No obvious murmurs to auscultation. No chest tenderness to palpation. RESPIRATORY: No obvious rhonchi, occasional wheezing. Breath sounds equal bilaterally. GASTROINTESTINAL: Abdomen soft, non-tender, nondistended. BS normal. MUSCULOSKELETAL: Extremities without clubbing, cyanosis, or edema. No obvious deformities. NEUROLOGICAL: Awake, alert and oriented x4. No focal neurologic deficits. Moving both upper and lower extremities spontaneously. PSYCHIATRIC: Appropriate mood and affect. Insight and judgment normal. Results - Labs CBC & Chem 7: 02/13/18 07:53 02/13/18 05:45 Laboratory Results - last 24 hr 02/12/18 02/12/18 02/12/18 15:11 15:11 15:11 WBC 8.6 RBC 4.96 Hgb 14.3 Hct 42.4 MCV 85.5 MCH 28.9 MCHC 33.8 RDW 15.0 Plt Count 150 MPV 9.5 Neut % (Auto) 66.7 Lymph % (Auto) 21.0 [place] % (Auto) 8.8 H Eos % (Auto) 2.6 Baso % (Auto) 0.9 Neut # (Auto) 5.7 Lymph # (Auto) 1.8 [place] # (Auto) 0.8 Eos # (Auto) 0.2 Baso # (Auto) 0.1 WBC Differential . Differential Comment Auto diff final ESR Sodium 141 Potassium 4.1 Chloride 107 Carbon Dioxide 26.9 Anion Gap 7 BUN 19 H Creatinine 0.83 Estimated GFR 68 L Random Glucose 122 H Calcium 8.7 Magnesium 2.3 Total Bilirubin 0.2 AST 27 ALT 25 Alkaline Phosphatase 88 Ammonia Troponin I Less than 0.02 L Total Protein 7.7 Albumin 3.6 Triglycerides Cholesterol LDL Cholesterol, Calc HDL Cholesterol Cholesterol/HDL Ratio Vitamin B12 TSH Free T4 Urine Color Urine Clarity Urine pH Ur Specific [place] Urine Protein Urine Glucose (UA) Urine Ketones Urine Occult Blood Urine Nitrate Urine Bilirubin Urine Urobilinogen Ur Leukocyte Esterase Urine RBC Urine WBC Ur Squamous Epith Cells Urine Bacteria Micro UA Comment Ur Microscopic Review Urine Culture Comments RPR 02/12/18 02/13/18 02/13/18 21:37 00:14 05:45 WBC RBC Hgb Hct MCV MCH MCHC RDW Plt Count MPV Neut % (Auto) Lymph % (Auto) [place] % (Auto) Eos % (Auto) Baso % (Auto) Neut # (Auto) Lymph # (Auto) [place] # (Auto) Eos # (Auto) Baso # (Auto) WBC Differential Differential Comment ESR Sodium 143 Potassium 4.1 Chloride 110 H Carbon Dioxide 24.5 Anion Gap 9 BUN 21 H Creatinine 0.60 Estimated GFR Greater than 89 Random Glucose 144 H Calcium 8.8 Magnesium Total Bilirubin 0.3 AST 21 ALT 24 Alkaline Phosphatase 71 Ammonia Troponin I Less than 0.02 L Less than 0.02 L Total Protein 6.7 D Albumin 3.3 L Triglycerides 60 Cholesterol 175 LDL Cholesterol, Calc 105 H HDL Cholesterol 58.0 Cholesterol/HDL Ratio 3.01 Vitamin B12 TSH Free T4 Urine Color Yellow Urine Clarity Hazy H Urine pH 5.0 Ur Specific [place] 1.021 Urine Protein Negative Urine Glucose (UA) Negative Urine Ketones Negative Urine Occult Blood Moderate H Urine Nitrate Negative Urine Bilirubin Negative Urine Urobilinogen Less than 2 Ur Leukocyte Esterase Small H Urine RBC 1 Urine WBC 6 H Ur Squamous Epith Cells 9 Urine Bacteria Rare H Micro UA Comment Culture not ind Ur Microscopic Review Not Reportable Urine Culture Comments Culture not ind RPR 02/13/18 02/13/18 02/13/18 07:53 07:53 07:53 WBC 8.2 RBC 4.51 Hgb 12.9 Hct 38.8 MCV 86.1 MCH 28.6 MCHC 33.2 RDW 14.4 Plt Count 142 L MPV 9.6 Neut % (Auto) 87.0 H Lymph % (Auto) 10.8 [place] % (Auto) 2.1 Eos % (Auto) 0.0 Baso % (Auto) 0.1 Neut # (Auto) 7.1 Lymph # (Auto) 0.9 L [place] # (Auto) 0.2 Eos # (Auto) 0.0 Baso # (Auto) 0.0 WBC Differential . Differential Comment Auto diff final ESR 15 Sodium Potassium Chloride Carbon Dioxide Anion Gap BUN Creatinine Estimated GFR Random Glucose Calcium Magnesium Total Bilirubin AST ALT Alkaline Phosphatase Ammonia 31 Troponin I Total Protein Albumin Triglycerides Cholesterol LDL Cholesterol, Calc HDL Cholesterol Cholesterol/HDL Ratio Vitamin B12 TSH Free T4 Urine Color Urine Clarity Urine pH Ur Specific [place] Urine Protein Urine Glucose (UA) Urine Ketones Urine Occult Blood Urine Nitrate Urine Bilirubin Urine Urobilinogen Ur Leukocyte Esterase Urine RBC Urine WBC Ur Squamous Epith Cells Urine Bacteria Micro UA Comment Ur Microscopic Review Urine Culture Comments RPR 02/13/18 02/13/18 07:53 08:41 WBC RBC Hgb Hct MCV MCH MCHC RDW Plt Count MPV Neut % (Auto) Lymph % (Auto) [place] % (Auto) Eos % (Auto) Baso % (Auto) Neut # (Auto) Lymph # (Auto) [place] # (Auto) Eos # (Auto) Baso # (Auto) WBC Differential Differential Comment ESR Sodium Potassium Chloride Carbon Dioxide Anion Gap BUN Creatinine Estimated GFR Random Glucose Calcium Magnesium Total Bilirubin AST ALT Alkaline Phosphatase Ammonia Troponin I Total Protein Albumin Triglycerides Cholesterol LDL Cholesterol, Calc HDL Cholesterol Cholesterol/HDL Ratio Vitamin B12 358 TSH 0.167 L Free T4 1.06 Urine Color Urine Clarity Urine pH Ur Specific [place] Urine Protein Urine Glucose (UA) Urine Ketones Urine Occult Blood Urine Nitrate Urine Bilirubin Urine Urobilinogen Ur Leukocyte Esterase Urine RBC Urine WBC Ur Squamous Epith Cells Urine Bacteria Micro UA Comment Ur Microscopic Review Urine Culture Comments RPR Nonreactive - Imaging Impressions Chest X-Ray 02/12/18 14:30 CONCLUSION: Nodular density overlying the right lung. CT scan of chest recommended. Chest CT 02/12/18 15:11 CONCLUSION: 1. Plain film density appears to correspond to an area of pleural parenchymal scarring in the anterolateral right upper chest. This is overtly benign but I would recommend a follow-up CT of the chest without contrast in 3 months to ensure stability/resolution. 2. Biapical emphysematous changes. 3. Very small pericardial effusion. 4. Minimal pneumobilia probably related to prior surgical intervention. Patient is status post cholecystectomy. 5. Mild diverticular disease in the visualized portions of the upper colon. Head CT 02/12/18 16:41 CONCLUSION: 1. Chronic changes with multiple right basal ganglia lacunar type infarcts, left external capsule lacunar type infarct and an old right cerebellar infarct. 2. Nothing acute. . Neck MRA 02/13/18 00:00 CONCLUSION: 1. Atherosclerosis without evidence for hemodynamically significant stenosis at this time. Percent stenosis is calculated using the diameter of the stenotic region over the diameter of the normal distal internal carotid artery Head MRI 02/13/18 08:07 CONCLUSION: 1. Mild volume loss and white matter disease. 2. No evidence of acute infarct or mass. Head MRA 02/13/18 08:07 CONCLUSION: 1. Atherosclerosis. 2. No aneurysm or occlusion. Assessment and Plan - Assessment (1) COPD (chronic obstructive pulmonary disease) Code(s): J44.9 - Chronic obstructive pulmonary disease, unspecified Status: Acute (2) Abnormal CT of the chest Code(s): R93.89 - Abnormal findings on diagnostic imaging of other specified body structures Status: Acute (3) Transient ischemic attack (TIA) Code(s): G45.9 - Transient cerebral ischemic attack, unspecified Status: Acute (4) HTN (hypertension) Code(s): I10 - Essential (primary) hypertension Status: Acute - Plan 1. COPD: Chronic Respiratory Failure w/ Acute Exacerbation. Moderate. S/p Solu-Medrol/DuoNeb w/ persistent wheezing, Taper Solu-Medrol, DuoNeb q2h prn and q4h continue Symbicort, Mucinex. Monitor for improvement 2. Abnormal CT Chest: CXR w/ nodular density right lung. CT Chest w/ pleural parenchymal scarring in right upper chest, likely benign, but recommendation for repeat imaging in 3months, images reviewed. Pt instructed to follow up w/ PCP for further imaging as outpatient. 3. TIA: Per Son, pt w/ intermittent facial droop and slurred speech over the last 3 days, pt denies these symptoms. No motor or sensory deficits noted. She has a normal speech and no change in vision. CT Head w/ multiple lacunar infarcts and old right cerebellar infarct, no acute findings. Admit for Observation, Neuro Checks, Check Lipid Profile/Hgb A1c, ASA/Statin, Consult Neurology for further recommendations. Check Echo to eval for possible embolic source. 4. HTN: Uncontrolled, BP 180's, however in light of TIA will allow for permissive HTN, antihypertensives for BP >220. DVT Prophylaxis: SCD/Teds CM consulted for d/c planning as needed. Possible discharge tomorrow if improves. Will taper down steroids today. (1) COPD (chronic obstructive pulmonary disease) Qualifiers: COPD type: unspecified COPD Qualified Code(s): J44.9 - Chronic obstructive pulmonary disease, unspecified
[2018-02-13] MEDS: Acetaminophen 325 MG Tablet PO PRN ×2 (14:31→19:48)
[2018-02-13 16:45] LABS: Hemoglobin A1c 5.2 % (4.3-6.0)
--- NOTE | 2018-02-13 17:25 | P.DS ---
Date of admission: 02/12/18 19:00 Primary care physician: UNKNOWN Brief History from admission: This is a 72 year old female w/ a PMH of HTN, COPD, CHF (Echo 10/27/16 w/ EF 40-45 %) and h/o NSTEMI who presented to the ER for c/o SOB. Pt poor historian, but states symptoms started approx 3 days ago. Has been using home Nebulizer w/ minimal improvement. Denies fever or chills, no cough or sick contacts. On arrival, BP 185/84, HR 75, O2 sat 97% on RA, Afebrile. CBC unremarkable. Chemistry essentially unremarkable except for BUN 19, GFR 68. CXR w/ nodular density overlying right lung. CT Chest w/ pleural parenchymal scarring likely benign, but recommendation for repeat imaging in 3 months. While in ER, Son arrived and stated pt also w/ intermittent facial droop and slurred speech for several days. Pt however denies these symptoms. States she feels fine. CT Head w/ multiple right basal ganglia lacunar infarcts, left external capsule infarct and old right cerebellar infarct, no acute findings. Pt w/ no knowledge of previous CVA. States she takes full dose ASA daily. DS: Diagnosis - Discharge Diagnosis (1) COPD (chronic obstructive pulmonary disease) Status: Acute (2) Abnormal CT of the chest Status: Acute (3) Transient ischemic attack (TIA) Status: Acute (4) HTN (hypertension) Status: Acute DS: Medications - Discharge Medications Prescriptions: budesonide-formoterol [Symbicort] 2 puff INH BID 30 Days g guaifenesin [Mucinex] 600 mg PO BID #10 tab ipratropium-albuterol 1 amp NEB Q4HR WHILE AWAKE NEB PRN 30 Days ml PRN Reason: sob/wheezing pravastatin 40 mg PO DAILY #30 tab prednisone [Deltasone] 20 mg PO BID #10 tab DS: Summary - Time Spent with Patient Total time spent providing and/or coordinating discharge services: Greater than 30 minutes - Quality: VTE Deep Vein Thrombosis/Pulmonary Embolism Present on Admission: No Exam Vital signs: Vital Signs 02/12/18 19:20 02/12/18 20:00 02/12/18 20:53 Temperature 98.7 F Pulse Rate 78 83 78 Respiratory Rate 18 14 16 Blood Pressure 162/74 H 181/78 H Pulse Oximetry 99 95 02/13/18 00:00 02/13/18 03:49 02/13/18 08:44 Temperature 97.7 F 97.4 F L 97.6 F Pulse Rate 78 66 73 Respiratory Rate 18 16 18 Blood Pressure 124/58 L 153/67 H 154/69 H Pulse Oximetry 96 96 95 02/13/18 16:42 Temperature 97.8 F Pulse Rate 80 Respiratory Rate 20 Blood Pressure 125/58 L Pulse Oximetry 97 Intake & Output 02/12/18 02/13/18 02/13/18 18:59 06:59 18:59 Intake Total 1000 / 1000 Balance 1000 / 1000 Weight 63.503 kg 63.503 kg Intake: IV 1000 / 1000 NS Inj 1,000 ML @ 100 mls/hr IV 1000 / 1000 .CONT .Q10H [facility] Rx#:[id number] Other: Weight On Admission 63.503 kg Results Labs on day of discharge: Labs from last 24 hours 02/13/18 02/13/18 02/13/18 08:41 08:41 08:41 WBC RBC Hgb Hct MCV MCH MCHC RDW Plt Count MPV Neut % (Auto) Lymph % (Auto) [place] % (Auto) Eos % (Auto) Baso % (Auto) Neut # (Auto) Lymph # (Auto) [place] # (Auto) Eos # (Auto) Baso # (Auto) WBC Differential Differential Comment ESR Lupus Anticoagulant Pending LA PTT Screen Pending dRVVT Screen Pending Protein C Antigen Pending APC Resistance Pending Protein S Activity Pending Antithrombin III Activ Pending Factor V Leiden Mutat Pending Factor V Leiden Interp Pending Factor VIII Activity Pending Sodium Potassium Chloride Carbon Dioxide Anion Gap BUN Creatinine Estimated GFR Random Glucose Hemoglobin A1c Calcium Total Bilirubin AST ALT Alkaline Phosphatase Ammonia Troponin I Total Protein Albumin Triglycerides Cholesterol LDL Cholesterol, Calc HDL Cholesterol Cholesterol/HDL Ratio Vitamin B12 Methylmalonic Acid Pending Homocysteine Cardiovas Pending TSH Free T4 Urine Color Urine Clarity Urine pH Ur Specific [place] Urine Protein Urine Glucose (UA) Urine Ketones Urine Occult Blood Urine Nitrate Urine Bilirubin Urine Urobilinogen Ur Leukocyte Esterase Urine RBC Urine WBC Ur Squamous Epith Cells Urine Bacteria Micro UA Comment Ur Microscopic Review Urine Culture Comments ABHINAV Screen Beta-2-GPI IgG Ab Pending Beta-2-GPI IgA Ab Pending Beta-2-GPI IgM Ab Pending Phosphatidylserine IgG Pending Phosphatidylserine IgA Pending Phosphatidylserine IgM Pending Anti-Cardiolipin IgG Ab Pending Anti-Cardiolipin IgM Ab Pending RPR MTHFR Mutation Detect Pending Prothrombin [id number] Mut Pending 02/13/18 02/13/18 02/13/18 08:41 08:41 07:53 WBC RBC Hgb Hct MCV MCH MCHC RDW Plt Count MPV Neut % (Auto) Lymph % (Auto) [place] % (Auto) Eos % (Auto) Baso % (Auto) Neut # (Auto) Lymph # (Auto) [place] # (Auto) Eos # (Auto) Baso # (Auto) WBC Differential Differential Comment ESR Lupus Anticoagulant LA PTT Screen dRVVT Screen Protein C Antigen APC Resistance Protein S Activity Antithrombin III Activ Factor V Leiden Mutat Factor V Leiden Interp Factor VIII Activity Sodium Potassium Chloride Carbon Dioxide Anion Gap BUN Creatinine Estimated GFR Random Glucose Hemoglobin A1c Pending Calcium Total Bilirubin AST ALT Alkaline Phosphatase Ammonia Troponin I Total Protein Albumin Triglycerides Cholesterol LDL Cholesterol, Calc HDL Cholesterol Cholesterol/HDL Ratio Vitamin B12 358 Methylmalonic Acid Homocysteine Cardiovas TSH 0.167 L Free T4 1.06 Urine Color Urine Clarity Urine pH Ur Specific [place] Urine Protein Urine Glucose (UA) Urine Ketones Urine Occult Blood Urine Nitrate Urine Bilirubin Urine Urobilinogen Ur Leukocyte Esterase Urine RBC Urine WBC Ur Squamous Epith Cells Urine Bacteria Micro UA Comment Ur Microscopic Review Urine Culture Comments ABHINAV Screen Pending Beta-2-GPI IgG Ab Beta-2-GPI IgA Ab Beta-2-GPI IgM Ab Phosphatidylserine IgG Phosphatidylserine IgA Phosphatidylserine IgM Anti-Cardiolipin IgG Ab Anti-Cardiolipin IgM Ab RPR Nonreactive MTHFR Mutation Detect Prothrombin [id number] Mut 02/13/18 02/13/18 02/13/18 07:53 07:53 07:53 WBC 8.2 RBC 4.51 Hgb 12.9 Hct 38.8 MCV 86.1 MCH 28.6 MCHC 33.2 RDW 14.4 Plt Count 142 L MPV 9.6 Neut % (Auto) 87.0 H Lymph % (Auto) 10.8 [place] % (Auto) 2.1 Eos % (Auto) 0.0 Baso % (Auto) 0.1 Neut # (Auto) 7.1 Lymph # (Auto) 0.9 L [place] # (Auto) 0.2 Eos # (Auto) 0.0 Baso # (Auto) 0.0 WBC Differential . Differential Comment Auto diff final ESR 15 Lupus Anticoagulant LA PTT Screen dRVVT Screen Protein C Antigen APC Resistance Protein S Activity Antithrombin III Activ Factor V Leiden Mutat Factor V Leiden Interp Factor VIII Activity Sodium Potassium Chloride Carbon Dioxide Anion Gap BUN Creatinine Estimated GFR Random Glucose Hemoglobin A1c Calcium Total Bilirubin AST ALT Alkaline Phosphatase Ammonia 31 Troponin I Total Protein Albumin Triglycerides Cholesterol LDL Cholesterol, Calc HDL Cholesterol Cholesterol/HDL Ratio Vitamin B12 Methylmalonic Acid Homocysteine Cardiovas TSH Free T4 Urine Color Urine Clarity Urine pH Ur Specific [place] Urine Protein Urine Glucose (UA) Urine Ketones Urine Occult Blood Urine Nitrate Urine Bilirubin Urine Urobilinogen Ur Leukocyte Esterase Urine RBC Urine WBC Ur Squamous Epith Cells Urine Bacteria Micro UA Comment Ur Microscopic Review Urine Culture Comments ABHINAV Screen Beta-2-GPI IgG Ab Beta-2-GPI IgA Ab Beta-2-GPI IgM Ab Phosphatidylserine IgG Phosphatidylserine IgA Phosphatidylserine IgM Anti-Cardiolipin IgG Ab Anti-Cardiolipin IgM Ab RPR MTHFR Mutation Detect Prothrombin [id number] Mut 02/13/18 02/13/18 02/12/18 05:45 00:14 21:37 WBC RBC Hgb Hct MCV MCH MCHC RDW Plt Count MPV Neut % (Auto) Lymph % (Auto) [place] % (Auto) Eos % (Auto) Baso % (Auto) Neut # (Auto) Lymph # (Auto) [place] # (Auto) Eos # (Auto) Baso # (Auto) WBC Differential Differential Comment ESR Lupus Anticoagulant [place] PTT Screen dRVVT Screen Protein C Antigen APC Resistance Protein S Activity Antithrombin III Activ Factor V Leiden Mutat Factor V Leiden Interp Factor VIII Activity Sodium 143 Potassium 4.1 Chloride 110 H Carbon Dioxide 24.5 Anion Gap 9 BUN 21 H Creatinine 0.60 Estimated GFR Greater than 89 Random Glucose 144 H Hemoglobin A1c Calcium 8.8 Total Bilirubin 0.3 AST 21 ALT 24 Alkaline Phosphatase 71 Ammonia Troponin I Less than 0.02 L Less than 0.02 L Total Protein 6.7 D Albumin 3.3 L Triglycerides 60 Cholesterol 175 LDL Cholesterol, Calc 105 H HDL Cholesterol 58.0 Cholesterol/HDL Ratio 3.01 Vitamin B12 Methylmalonic Acid Homocysteine Cardiovas TSH Free T4 Urine Color Yellow Urine Clarity Hazy H Urine pH 5.0 Ur Specific [place] 1.021 Urine Protein Negative Urine Glucose (UA) Negative Urine Ketones Negative Urine Occult Blood Moderate H Urine Nitrate Negative Urine Bilirubin Negative Urine Urobilinogen Less than 2 Ur Leukocyte Esterase Small H Urine RBC 1 Urine WBC 6 H Ur Squamous Epith Cells 9 Urine Bacteria Rare H Micro UA Comment Culture not ind Ur Microscopic Review Not Reportable Urine Culture Comments Culture not ind ABHINAV Screen Beta-2-GPI IgG Ab Beta-2-GPI IgA Ab Beta-2-GPI IgM Ab Phosphatidylserine IgG Phosphatidylserine IgA Phosphatidylserine IgM Anti-Cardiolipin IgG Ab Anti-Cardiolipin IgM Ab RPR MTHFR Mutation Detect Prothrombin [id number] Mut 02/12/18 15:11 WBC RBC Hgb Hct MCV MCH MCHC RDW Plt Count MPV Neut % (Auto) Lymph % (Auto) [place] % (Auto) Eos % (Auto) Baso % (Auto) Neut # (Auto) Lymph # (Auto) [place] # (Auto) Eos # (Auto) Baso # (Auto) WBC Differential Differential Comment ESR Lupus Anticoagulant [place] PTT Screen dRVVT Screen Protein C Antigen APC Resistance Protein S Activity Antithrombin III Activ Factor V Leiden Mutat Factor V Leiden Interp Factor VIII Activity Sodium Potassium Chloride Carbon Dioxide Anion Gap BUN Creatinine Estimated GFR Random Glucose Hemoglobin A1c Calcium Total Bilirubin AST ALT Alkaline Phosphatase Ammonia Troponin I Less than 0.02 L Total Protein Albumin Triglycerides Cholesterol LDL Cholesterol, Calc HDL Cholesterol Cholesterol/HDL Ratio Vitamin B12 Methylmalonic Acid Homocysteine Cardiovas TSH Free T4 Urine Color Urine Clarity Urine pH Ur Specific [place] Urine Protein Urine Glucose (UA) Urine Ketones Urine Occult Blood Urine Nitrate Urine Bilirubin Urine Urobilinogen Ur Leukocyte Esterase Urine RBC Urine WBC Ur Squamous Epith Cells Urine Bacteria Micro UA Comment Ur Microscopic Review Urine Culture Comments ABHINAV Screen Beta-2-GPI IgG Ab Beta-2-GPI IgA Ab Beta-2-GPI IgM Ab Phosphatidylserine IgG Phosphatidylserine IgA Phosphatidylserine IgM Anti-Cardiolipin IgG Ab Anti-Cardiolipin IgM Ab RPR MTHFR Mutation Detect Prothrombin [id number] Mut - Impressions ITS Impressions Chest X-Ray 02/12/18 14:30 CONCLUSION: Nodular density overlying the right lung. CT scan of chest recommended. Chest CT 02/12/18 15:11 CONCLUSION: 1. Plain film density appears to correspond to an area of pleural parenchymal scarring in the anterolateral right upper chest. This is overtly benign but I would recommend a follow-up CT of the chest without contrast in 3 months to ensure stability/resolution. 2. Biapical emphysematous changes. 3. Very small pericardial effusion. 4. Minimal pneumobilia probably related to prior surgical intervention. Patient is status post cholecystectomy. 5. Mild diverticular disease in the visualized portions of the upper colon. Head CT 02/12/18 16:41 CONCLUSION: 1. Chronic changes with multiple right basal ganglia lacunar type infarcts, left external capsule lacunar type infarct and an old right cerebellar infarct. 2. Nothing acute. . Neck MRA 02/13/18 00:00 CONCLUSION: 1. Atherosclerosis without evidence for hemodynamically significant stenosis at this time. Percent stenosis is calculated using the diameter of the stenotic region over the diameter of the normal distal internal carotid artery Head MRI 02/13/18 08:07 CONCLUSION: 1. Mild volume loss and white matter disease. 2. No evidence of acute infarct or mass. Head MRA 02/13/18 08:07 CONCLUSION: 1. Atherosclerosis. 2. No aneurysm or occlusion. Discharge Plan - Discharge Disposition Patient Disposition: Discharge Home - Discharge Condition Condition: Stable - Discharge Order Discharge Orders: Discharge Order (Routine); Ordered 02/13/18 Ordered By: Nevin Cabral - Physicians Team Primary Care Provider: UNKNOWN, Attending Provider: Nevin Cabral Other Providers: Susan Davis ; Nestor Aldrich MD
--- NOTE | 2018-02-13 19:14 | P.DS ---
Date of admission: 02/12/18 19:00 Primary care physician: UNKNOWN Brief History from admission: This is a 72 year old female w/ a PMH of HTN, COPD, CHF (Echo 10/27/16 w/ EF 40-45 %) and h/o NSTEMI who presented to the ER for c/o SOB. Pt poor historian, but states symptoms started approx 3 days ago. Has been using home Nebulizer w/ minimal improvement. Denies fever or chills, no cough or sick contacts. On arrival, BP 185/84, HR 75, O2 sat 97% on RA, Afebrile. CBC unremarkable. Chemistry essentially unremarkable except for BUN 19, GFR 68. CXR w/ nodular density overlying right lung. CT Chest w/ pleural parenchymal scarring likely benign, but recommendation for repeat imaging in 3 months. While in ER, Son arrived and stated pt also w/ intermittent facial droop and slurred speech for several days. Pt however denies these symptoms. States she feels fine. CT Head w/ multiple right basal ganglia lacunar infarcts, left external capsule infarct and old right cerebellar infarct, no acute findings. Pt w/ no knowledge of previous CVA. States she takes full dose ASA daily. DS: Diagnosis - Discharge Diagnosis (1) COPD (chronic obstructive pulmonary disease) Status: Acute (2) Abnormal CT of the chest Status: Acute (3) Transient ischemic attack (TIA) Status: Acute (4) HTN (hypertension) Status: Acute DS: Medications - Discharge Medications Prescriptions: budesonide-formoterol [Symbicort] 2 puff INH BID 30 Days g guaifenesin [Mucinex] 600 mg PO BID #10 tab ipratropium-albuterol 1 amp NEB Q4HR WHILE AWAKE NEB PRN 30 Days ml PRN Reason: sob/wheezing pravastatin 40 mg PO DAILY #30 tab prednisone [Deltasone] 20 mg PO BID #10 tab DS: Summary Hospital Course: 1. COPD: Chronic Respiratory Failure w/ Acute Exacerbation. Moderate. Patient received Solu-Medrol/DuoNeb and was still with persistent wheezing. Tapered Solu-Medrol and change to PO at DC DuoNeb q2h prn and q4h continue Symbicort, Mucinex. Patient improved significantly 2. Abnormal CT Chest: CXR w/ nodular density right lung. CT Chest w/ pleural parenchymal scarring in right upper chest, likely benign, but recommendation for repeat imaging in 3months, images reviewed. Pt instructed to follow up w/ PCP for further imaging as outpatient. 3. TIA: Per Son, pt w/ intermittent facial droop and slurred speech over the last 3 days, pt denies these symptoms. No motor or sensory deficits noted. She has a normal speech and no change in vision. CT Head w/ multiple lacunar infarcts and old right cerebellar infarct, no acute findings. Admit for Observation, Neuro Checks, Check Lipid Profile/Hgb A1c, ASA/Statin, Consult Neurology for further recommendations. Check Echo to eval for possible embolic source. 4. HTN: Uncontrolled, BP 180's, however in light of TIA will allow for permissive HTN, antihypertensives for BP >220. DVT Prophylaxis: SCD/Teds CM consulted for d/c planning as needed. Patient improved significantly.DC home in stable condition to follow up as OP with PCP and consultants - Time Spent with Patient Total time spent providing and/or coordinating discharge services: Greater than 30 minutes - Quality: VTE Deep Vein Thrombosis/Pulmonary Embolism Present on Admission: No Exam Vital signs: Vital Signs 02/12/18 19:20 02/12/18 20:00 02/12/18 20:53 Temperature 98.7 F Pulse Rate 78 83 78 Respiratory Rate 18 14 16 Blood Pressure 162/74 H 181/78 H Pulse Oximetry 99 95 02/13/18 00:00 02/13/18 03:49 02/13/18 08:44 Temperature 97.7 F 97.4 F L 97.6 F Pulse Rate 78 66 73 Respiratory Rate 18 16 18 Blood Pressure 124/58 L 153/67 H 154/69 H Pulse Oximetry 96 96 95 02/13/18 16:42 Temperature 97.8 F Pulse Rate 80 Respiratory Rate 20 Blood Pressure 125/58 L Pulse Oximetry 97 Intake & Output 02/13/18 02/13/18 02/14/18 06:59 18:59 06:59 Intake Total 1000 / 1000 500 / 500 Balance 1000 / 1000 500 / 500 Weight 63.503 kg Intake: IV 1000 / 1000 500 / 500 NS Inj 1,000 ML @ 100 mls/hr IV 1000 / 1000 500 / 500 .CONT .Q10H FAWN Rx#:[id number] Other: Weight On Admission 63.503 kg Narrative: GENERAL: Pleasant 72 YO female, appears in no acute distress. CARDIOVASCULAR: Regular rate and rhythm. No obvious murmurs to auscultation. No chest tenderness to palpation. RESPIRATORY: No obvious rhonchi, occasional wheezing. Breath sounds equal bilaterally. GASTROINTESTINAL: Abdomen soft, non-tender, nondistended. BS normal. MUSCULOSKELETAL: Extremities without clubbing, cyanosis, or edema. No obvious deformities. NEUROLOGICAL: Awake, alert and oriented x4. No focal neurologic deficits. Moving both upper and lower extremities spontaneously. PSYCHIATRIC: Appropriate mood and affect. Insight and judgment normal. Results Procedures completed during hospitalization: no procedures Labs on day of discharge: Labs from last 24 hours 02/13/18 02/13/18 02/13/18 08:41 08:41 08:41 WBC RBC Hgb Hct MCV MCH MCHC RDW Plt Count MPV Neut % (Auto) Lymph % (Auto) Parmer % (Auto) Eos % (Auto) Baso % (Auto) Neut # (Auto) Lymph # (Auto) Parmer # (Auto) Eos # (Auto) Baso # (Auto) WBC Differential Differential Comment ESR Lupus Anticoagulant Pending LA PTT Screen Pending dRVVT Screen Pending Protein C Antigen Pending APC Resistance Pending Protein S Activity Pending Antithrombin III Activ Pending Factor V Leiden Mutat Pending Factor V Leiden Interp Pending Factor VIII Activity Pending Sodium Potassium Chloride Carbon Dioxide Anion Gap BUN Creatinine Estimated GFR Random Glucose Hemoglobin A1c Calcium Total Bilirubin AST ALT Alkaline Phosphatase Ammonia Troponin I Total Protein Albumin Triglycerides Cholesterol LDL Cholesterol, Calc HDL Cholesterol Cholesterol/HDL Ratio Vitamin B12 Methylmalonic Acid Pending Homocysteine Cardiovas Pending TSH Free T4 Urine Color Urine Clarity Urine pH Ur Specific [place] Urine Protein Urine Glucose (UA) Urine Ketones Urine Occult Blood Urine Nitrate Urine Bilirubin Urine Urobilinogen Ur Leukocyte Esterase Urine RBC Urine WBC Ur Squamous Epith Cells Urine Bacteria Micro UA Comment Ur Microscopic Review Urine Culture Comments ABHINAV Screen Beta-2-GPI IgG Ab Pending Beta-2-GPI IgA Ab Pending Beta-2-GPI IgM Ab Pending Phosphatidylserine IgG Pending Phosphatidylserine IgA Pending Phosphatidylserine IgM Pending Anti-Cardiolipin IgG Ab Pending Anti-Cardiolipin IgM Ab Pending RPR MTHFR Mutation Detect Pending Prothrombin [id number] Mut Pending 02/13/18 02/13/18 02/13/18 08:41 08:41 07:53 WBC RBC Hgb Hct MCV MCH MCHC RDW Plt Count MPV Neut % (Auto) Lymph % (Auto) Parmer % (Auto) Eos % (Auto) Baso % (Auto) Neut # (Auto) Lymph # (Auto) Parmer # (Auto) Eos # (Auto) Baso # (Auto) WBC Differential Differential Comment ESR Lupus Anticoagulant LA PTT Screen dRVVT Screen Protein C Antigen APC Resistance Protein S Activity Antithrombin III Activ Factor V Leiden Mutat Factor V Leiden Interp Factor VIII Activity Sodium Potassium Chloride Carbon Dioxide Anion Gap BUN Creatinine Estimated GFR Random Glucose Hemoglobin A1c Pending Calcium Total Bilirubin AST ALT Alkaline Phosphatase Ammonia Troponin I Total Protein Albumin Triglycerides Cholesterol LDL Cholesterol, Calc HDL Cholesterol Cholesterol/HDL Ratio Vitamin B12 358 Methylmalonic Acid Homocysteine Cardiovas TSH 0.167 L Free T4 1.06 Urine Color Urine Clarity Urine pH Ur Specific [place] Urine Protein Urine Glucose (UA) Urine Ketones Urine Occult Blood Urine Nitrate Urine Bilirubin Urine Urobilinogen Ur Leukocyte Esterase Urine RBC Urine WBC Ur Squamous Epith Cells Urine Bacteria Micro UA Comment Ur Microscopic Review Urine Culture Comments ABHINAV Screen Pending Beta-2-GPI IgG Ab Beta-2-GPI IgA Ab Beta-2-GPI IgM Ab Phosphatidylserine IgG Phosphatidylserine IgA Phosphatidylserine IgM Anti-Cardiolipin IgG Ab Anti-Cardiolipin IgM Ab RPR Nonreactive MTHFR Mutation Detect Prothrombin [id number] Mut 02/13/18 02/13/18 02/13/18 07:53 07:53 07:53 WBC 8.2 RBC 4.51 Hgb 12.9 Hct 38.8 MCV 86.1 MCH 28.6 MCHC 33.2 RDW 14.4 Plt Count 142 L MPV 9.6 Neut % (Auto) 87.0 H Lymph % (Auto) 10.8 Parmer % (Auto) 2.1 Eos % (Auto) 0.0 Baso % (Auto) 0.1 Neut # (Auto) 7.1 Lymph # (Auto) 0.9 L Parmer # (Auto) 0.2 Eos # (Auto) 0.0 Baso # (Auto) 0.0 WBC Differential . Differential Comment Auto diff final ESR 15 Lupus Anticoagulant LA PTT Screen dRVVT Screen Protein C Antigen APC Resistance Protein S Activity Antithrombin III Activ Factor V Leiden Mutat Factor V Leiden Interp Factor VIII Activity Sodium Potassium Chloride Carbon Dioxide Anion Gap BUN Creatinine Estimated GFR Random Glucose Hemoglobin A1c Calcium Total Bilirubin AST ALT Alkaline Phosphatase Ammonia 31 Troponin I Total Protein Albumin Triglycerides Cholesterol LDL Cholesterol, Calc HDL Cholesterol Cholesterol/HDL Ratio Vitamin B12 Methylmalonic Acid Homocysteine Cardiovas TSH Free T4 Urine Color Urine Clarity Urine pH Ur Specific [place] Urine Protein Urine Glucose (UA) Urine Ketones Urine Occult Blood Urine Nitrate Urine Bilirubin Urine Urobilinogen Ur Leukocyte Esterase Urine RBC Urine WBC Ur Squamous Epith Cells Urine Bacteria Micro UA Comment Ur Microscopic Review Urine Culture Comments ABHINAV Screen Beta-2-GPI IgG Ab Beta-2-GPI IgA Ab Beta-2-GPI IgM Ab Phosphatidylserine IgG Phosphatidylserine IgA Phosphatidylserine IgM Anti-Cardiolipin IgG Ab Anti-Cardiolipin IgM Ab RPR MTHFR Mutation Detect Prothrombin [id number] Mut 02/13/18 02/13/18 02/12/18 05:45 00:14 21:37 WBC RBC Hgb Hct MCV MCH MCHC RDW Plt Count MPV Neut % (Auto) Lymph % (Auto) Parmer % (Auto) Eos % (Auto) Baso % (Auto) Neut # (Auto) Lymph # (Auto) Parmer # (Auto) Eos # (Auto) Baso # (Auto) WBC Differential Differential Comment ESR Lupus Anticoagulant LA PTT Screen dRVVT Screen Protein C Antigen APC Resistance Protein S Activity Antithrombin III Activ Factor V Leiden Mutat Factor V Leiden Interp Factor VIII Activity Sodium 143 Potassium 4.1 Chloride 110 H Carbon Dioxide 24.5 Anion Gap 9 BUN 21 H Creatinine 0.60 Estimated GFR Greater than 89 Random Glucose 144 H Hemoglobin A1c Calcium 8.8 Total Bilirubin 0.3 AST 21 ALT 24 Alkaline Phosphatase 71 Ammonia Troponin I Less than 0.02 L Less than 0.02 L Total Protein 6.7 D Albumin 3.3 L Triglycerides 60 Cholesterol 175 LDL Cholesterol, Calc 105 H HDL Cholesterol 58.0 Cholesterol/HDL Ratio 3.01 Vitamin B12 Methylmalonic Acid Homocysteine Cardiovas TSH Free T4 Urine Color Yellow Urine Clarity Hazy H Urine pH 5.0 Ur Specific [place] 1.021 Urine Protein Negative Urine Glucose (UA) Negative Urine Ketones Negative Urine Occult Blood Moderate H Urine Nitrate Negative Urine Bilirubin Negative Urine Urobilinogen Less than 2 Ur Leukocyte Esterase Small H Urine RBC 1 Urine WBC 6 H Ur Squamous Epith Cells 9 Urine Bacteria Rare H Micro UA Comment Culture not ind Ur Microscopic Review Not Reportable Urine Culture Comments Culture not ind ABHINAV Screen Beta-2-GPI IgG Ab Beta-2-GPI IgA Ab Beta-2-GPI IgM Ab Phosphatidylserine IgG Phosphatidylserine IgA Phosphatidylserine IgM Anti-Cardiolipin IgG Ab Anti-Cardiolipin IgM Ab RPR MTHFR Mutation Detect Prothrombin [id number] Mut 02/12/18 15:11 WBC RBC Hgb Hct MCV MCH MCHC RDW Plt Count MPV Neut % (Auto) Lymph % (Auto) Parmer % (Auto) Eos % (Auto) Baso % (Auto) Neut # (Auto) Lymph # (Auto) Parmer # (Auto) Eos # (Auto) Baso # (Auto) WBC Differential Differential Comment ESR Lupus Anticoagulant LA PTT Screen dRVVT Screen Protein C Antigen APC Resistance Protein S Activity Antithrombin III Activ Factor V Leiden Mutat Factor V Leiden Interp Factor VIII Activity Sodium Potassium Chloride Carbon Dioxide Anion Gap BUN Creatinine Estimated GFR Random Glucose Hemoglobin A1c Calcium Total Bilirubin AST ALT Alkaline Phosphatase Ammonia Troponin I Less than 0.02 L Total Protein Albumin Triglycerides Cholesterol LDL Cholesterol, Calc HDL Cholesterol Cholesterol/HDL Ratio Vitamin B12 Methylmalonic Acid Homocysteine Cardiovas TSH Free T4 Urine Color Urine Clarity Urine pH Ur Specific [place] Urine Protein Urine Glucose (UA) Urine Ketones Urine Occult Blood Urine Nitrate Urine Bilirubin Urine Urobilinogen Ur Leukocyte Esterase Urine RBC Urine WBC Ur Squamous Epith Cells Urine Bacteria Micro UA Comment Ur Microscopic Review Urine Culture Comments ABHINAV Screen Beta-2-GPI IgG Ab Beta-2-GPI IgA Ab Beta-2-GPI IgM Ab Phosphatidylserine IgG Phosphatidylserine IgA Phosphatidylserine IgM Anti-Cardiolipin IgG Ab Anti-Cardiolipin IgM Ab RPR MTHFR Mutation Detect Prothrombin [id number] Mut - Impressions ITS Impressions Chest X-Ray 02/12/18 14:30 CONCLUSION: Nodular density overlying the right lung. CT scan of chest recommended. Chest CT 02/12/18 15:11 CONCLUSION: 1. Plain film density appears to correspond to an area of pleural parenchymal scarring in the anterolateral right upper chest. This is overtly benign but I would recommend a follow-up CT of the chest without contrast in 3 months to ensure stability/resolution. 2. Biapical emphysematous changes. 3. Very small pericardial effusion. 4. Minimal pneumobilia probably related to prior surgical intervention. Patient is status post cholecystectomy. 5. Mild diverticular disease in the visualized portions of the upper colon. Head CT 02/12/18 16:41 CONCLUSION: 1. Chronic changes with multiple right basal ganglia lacunar type infarcts, left external capsule lacunar type infarct and an old right cerebellar infarct. 2. Nothing acute. . Neck MRA 02/13/18 00:00 CONCLUSION: 1. Atherosclerosis without evidence for hemodynamically significant stenosis at this time. Percent stenosis is calculated using the diameter of the stenotic region over the diameter of the normal distal internal carotid artery Head MRI 02/13/18 08:07 CONCLUSION: 1. Mild volume loss and white matter disease. 2. No evidence of acute infarct or mass. Head MRA 02/13/18 08:07 CONCLUSION: 1. Atherosclerosis. 2. No aneurysm or occlusion. Discharge Plan - Discharge Disposition Patient Disposition: Discharge Home - Discharge Condition Condition: Stable - Discharge Order Discharge Orders: Discharge Order (Routine); Ordered 02/13/18 Ordered By: Nevin Cabral - Physicians Team Primary Care Provider: VALERIA, Attending Provider: Nevin Cabral Other Providers: Susan Davis ; Nestor Aldrich MD
[2018-02-14 00:30] VITALS: O2SAT 96
[2018-02-14] MEDS: Sod Chloride 0.9% Inj 1,000 ML IV.CONT SCH (03:12)
[2018-02-14] MEDS: MethylPREDNISolone Sod Succinate Inj 40 MG/ML Vial IV.PUSH SCH (05:42)
[2018-02-14] MEDS: Budesonide-Formoterol 160/4.5 MCG 6 GM Inhaler INH SCH (08:12)
[2018-02-14] MEDS: Senna/Docusate Sodium 8.6/50 MG Tablet PO SCH (08:12)
[2018-02-14] MEDS: guaiFENesin 600 MG ER Tablet PO SCH (08:12)
[2018-02-14 08:19] VITALS: BP 143/95; PULSE 83; RESP 16; TEMP 98
--- NOTE | 2018-02-14 09:23 | MG ---
cc: Nestor Lepe MD EEG# [id number] INDICATION: Slurred speech, left droop. MEDICATIONS: Solu-Medrol. DESCRIPTION: A 9 Hz, 60 mV symmetric posterior rhythm is seen. Recording overall is synchronous and symmetric. Some theta slowing is occasionally noted diffusely. Photic stimulation is performed without any posterior driving. IMPRESSION: Generally unremarkable electroencephalogram. No evidence for a focal or diffuse abnormality. MD CLAUDIA Joshi/deedee , 08:49 AM , 08:53 AM
[2018-02-15 03:50] LABS: Homocysteine (Cardiovascular) 6.8 umol/L (<10.4)
[2018-02-16 14:57] LABS: Anti-Nuclear Antibody Screen Neg (Neg)
[2018-02-16 15:50] LABS: Dil Russell Viper Venom Conf ( ND (NEGATIVE); Dil Russell Viper Venom Time M ND (CORRECTED); Lupus Anticoagulant PTT Screen 32 seconds (< OR = 40)
--- NOTE | 2018-02-16 17:57 | ECG ---
Date Performed: 02/13/2018 Time Performed: 06:49:14 PTAGE: 72 years EKG: SINUS BRADYCARDIA WITH MARKED SINUS ARRHYTHMIA NONSPECIFIC ST & T-WAVE ABNORMALITY BORDERLI NE ECG PREVIOUS TRACING 02/13/18 @ 12:10 AM Since the previous tracing, no significant change n oted DOCTOR: Nestor Ayon Interpretating Date/Time 02/16/2018 17:56:39
--- NOTE | 2018-02-16 17:57 | ECG ---
Date Performed: 02/13/2018 Time Performed: 00:10:10 PTAGE: 72 years EKG: Sinus rhythm WITH SINUS ARRHYTHMIA NONSPECIFIC ST & T-WAVE ABNORMALITY BORDERLINE ECG PREVIOUS TRACING : 02/12/2018 20.23 Since the previous tracing, no significant change noted DOCTOR: Nestor Ayon Interpretating Date/Time 02/16/2018 17:56:50
--- NOTE | 2018-02-16 17:57 | ECG ---
Date Performed: 02/12/2018 Time Performed: 20:23:33 PTAGE: 72 years EKG: Sinus rhythm NONSPECIFIC ST & T-WAVE ABNORMALITY BORDERLINE ECG PREVIOUS TRACING : 02/12/2018 17.52 Since the previous tracing, no significant change noted DOCTOR: Nestor Ayon Interpretating Date/Time 02/16/2018 17:57:04
--- NOTE | 2018-02-16 20:27 | ECG ---
Date Performed: 02/12/2018 Time Performed: 17:52:27 PTAGE: 72 years EKG: Sinus rhythm WITH SINUS ARRHYTHMIA POSSIBLE LEFT ATRIAL ENLARGEMENT MODERATE ST DEPRESSION When compared to previ ous tracing, diffuse ST-T wave changes Have improved. ABNORMAL ECG PREVIOUS TRACING : 10/26/2016 05.57 DOCTOR: Nsetor Ayon Interpretating Date/Time 02/17/2018 13:25:38
[2018-02-17 03:50] LABS: Activated Protein C Resistance 5.3 ratio (> OR = 2.1)
[2018-02-17 14:18] LABS: Factor V Leiden Mutation Negative (Negative); Protein C Antigen 112 % (70-150)
== END 2018-02-14 11:34 | disposition home or self-care (01) ==
LOC: NEPD 14:08 → NEDA 14:08 → NEPFCDU 20:00
PROVIDERS: ADMIT Hospitalist; ATTEND Hospitalist